=== PATIENT | female | born 1960 | race Caucasian/White ===

== ENCOUNTER 2019-05-31 16:09 | Inpatient (IN) ==
[2019-05-31] MEDS ORDERED: PATIENT'S HEIGHT AND/OR WEIGHT NEEDED SCH (18:45)
[2019-05-31] MEDS ORDERED: POLYETHYLENE (MIRALAX) 17 GM PACK PO PRN (20:36)
[2019-05-31] MEDS ORDERED: ACETAMINOPHEN 325 MG TAB PO PRN (20:36)
[2019-05-31] MEDS ORDERED: PIPERACILL/TAZOBAC CONSULT ACTIVE PRN (20:46)
--- NOTE | 2019-05-31 20:47 | History & Physical Report ---
Date of Service May 31, 2019 Assessment & Plan (1) Pleural effusion: (2) Pneumonia: This is a 58-year-old female with PMH of COPD, tobacco use disorder, depression and other medical problems listed below who presents from pulmonary clinic as direct admission with what appears to be ongoing pneumonia and pleural effusion. -Direct admission from pulmonary clinic for further evaluation of pleural effusion/empyema and pneumonia -Per Dr. Ramirez of pulmonary service, he suspects this is an empyema with a fibrous peel. Case discussed with of thoracic surgery, with scheduled video-assisted thorascopic decortication tmrw -Repeat chest x-ray pending. NPO after midnight -Starting patient on empiric Zosyn and will adjust once surgical cultures result -Routine pulm consult for tomorrow (3) Tobacco abuse: Cessation recommended -Ordered nicotine patch (4) COPD (chronic obstructive pulmonary disease): Continue duo nebs and albuterol inhaler as needed (5) Protein calorie malnutrition: Patient is cachectic and has lost approximately 12 pounds with underlying infection -Dietitian consult placed for further nutritional assessment -Continue MV for folate deficiency (6) MDD (major depressive disorder): Continue Zoloft, Seroquel DVT Ppx: Dr Donohue to order depending on resulting renal function Code status: FULL PCP: Rohini Dispo: Admitted to med/surg. Plan to return home once medically stable. Patient seen in collaboration with Dr. Donohue. Please see addendum. History of Present Illness Chief Complaint: Pulmonary referral from clinic Primary Care Provider: Tricia Acosta MD This is a 58-year-old female with PMH of COPD, tobacco use disorder, depression and other medical problems listed below who presents from pulmonary clinic as direct admission. Initially had bronchitis back in February and March and was treated with azithromycin and prednisone. CXR was obtained at this time and demonstrated a loculated pleural effusion tracking up in the right chest. Was then treated with two courses of Levaquin. CXR was repeated again and did not show a significant change in the pleural effusion, so patient was referred to pulmonary for further evaluation. Patient endorses fatigue and ongoing cough without productive sputum, wheezing, and dyspnea on exertion. Has R sided lateral rib pain. Endorses an approximate 12 pound weight loss and decreased appetite since beginning of illness back in the fall. Denies fever, chills, night sweats, lightheadedness, visual changes, chest pain, palpitations, hemoptysis, nausea, vomiting, abdominal pain, dysuria, diarrhea or constipation. Allergies Allergy/AdvReac Type Severity Reaction Status Date / Time procaine Allergy Unknown Verified 05/31/19 15:00 Home Medications Home Medications Medication Instructions Recorded Confirmed Type albuterol sulfate 90 mcg/actuation 2 puffs INH Q6H PRN 05/31/19 05/31/19 History aerosol inhaler ipratropium-albuterol 3 ml INHALATION QID PRN 05/31/19 05/31/19 History prenat.vits,gorge,yhe-wcjs-whhcj 1 tab PO DAILY 05/31/19 05/31/19 History quetiapine 25 mg tablet 25 mg PO HS 05/31/19 05/31/19 History sertraline 200 mg PO DAILY 05/31/19 05/31/19 History Past Med/Surg History Medical History (Updated 05/31/19 @ 20:46 by Doris Longoria PA-C) COPD (chronic obstructive pulmonary disease) (Chronic) MDD (major depressive disorder) (Chronic) Protein calorie malnutrition (Chronic) Surgical History Fusion of lumbar spine Family History Other Alzheimer disease Breast cancer Heart disease Social History Preferred Language: Romanian Communication Ability: Effective Instructor Tap Dancing Required: No Beliefs That Will Affect Care: None Current Living Situation: Family Other Information That Helps Us Care for You: No Feels Safe at Home: Yes Safety Concerns: Feels Safe At This Time Smoking Status: Current every day smoker Tobacco Type: cigarettes ; packs per day: 1 ; Years Smoked: 40 ; Do You Dip or Chew Tobacco: No ; Second Hand Exposure: Yes ; Tobacco Cessation Education Requested by Patient: No (refused) Hx Alcohol Use: No Hx Substance Use: No Review of Systems Review of Systems: At least ten systems reviewed and negative except as noted in the HPI. Physical Exam Physical Exam: General Appearance: WD/WN, vitals as above, sitting up in bed, pleasant, conversing easily, cachectic Head: normocephalic, atraumatic Eyes: normal inspection, PERRL, conjunctivae normal, anicteric sclerae ENT: external ear and nose normal, oropharynx normal Neck: trachea midline, no thyromegaly normal visual inspection Respiratory: decreased lung sounds in RLL, otherwise clear to auscultation except for . Normal insp/exp effort, no accessory muscle use Cardiovascular: regular rate, rhythm, no murmur, normal peripheral pulses, no BLE edema. Vessels: no JVD or carotid bruit Chest: normal inspection of chest Abdomen/GI: normal bowel sounds, soft, nontender, no hepatosplenomegaly Extremities/Musculoskelatal: no cyanosis or clubbing, extremities motor strength 5/5. Right lateral rib pain, no bruising or deformities Neurologic: PERRL, EOMI, accommodation nl, no face palsy, no dysarthria, CN's II-XI intact bilaterally and moves all extremities Psychiatric: A+Ox3, euthymic affect Skin: no rashes, normal color, warm/dry Results & Data Vital Signs (Past 12 Hours) Vital Signs Temp Pulse Resp BP Pulse Ox 05/31/19 20:35 36.8 C 96 H 20 155/81 H 92 Laboratory Results Laboratory Results WBC 23.95 K/uL (4.8-10.8) H 05/31/19 20:53 RBC 3.31 M/uL (4.2-5.4) L 05/31/19 20:53 Hgb 8.6 g/dL (12.0-16.0) L 05/31/19 20:53 Hct 26.3 % (37-47) L 05/31/19 20:53 MCV 79.5 fL (80-100) L 05/31/19 20:53 MCH 26.0 pg (25-34) 05/31/19 20:53 MCHC 32.7 g/dL (32-36) 05/31/19 20:53 RDW Std Deviation 44.1 fL (36.4-46.3) 05/31/19 20:53 RDW Coeff of Miguel Ángel 15.1 % (11.5-14.5) H 05/31/19 20:53 Plt Count 767 K/uL (130-400) H 05/31/19 20:53 MPV 8.2 fL (7.4-10.4) 05/31/19 20:53 Immature Gran % (Auto) 0.6 % 05/31/19 20:53 Neut % (Auto) 80.4 % 05/31/19 20:53 Lymph % (Auto) 10.2 % 05/31/19 20:53 [place] % (Auto) 7.7 % 05/31/19 20:53 Eos % (Auto) 0.9 % 05/31/19 20:53 Baso % (Auto) 0.2 % 05/31/19 20:53 Immature Gran # (Auto) 0.14 K/uL (0.00-0.02) H 05/31/19 20:53 Neut # (Auto) 19.27 K/uL (1.4-6.5) H 05/31/19 20:53 Lymph # (Auto) 2.44 K/uL (1.2-3.4) 05/31/19 20:53 [place] # (Auto) 1.85 K/uL (0.11-0.59) H 05/31/19 20:53 Eos # (Auto) 0.21 K/uL (0-0.5) 05/31/19 20:53 Baso # (Auto) 0.04 K/uL (0-0.2) 05/31/19 20:53 Sodium 133 mmol/L (136-145) L 05/31/19 21:32 Potassium 2.5 mmol/L (3.5-5.1) L* 05/31/19 21:32 Chloride 99 mmol/L (98-107) 05/31/19 21:32 Carbon Dioxide 30 mmol/L (21-32) 05/31/19 21:32 Anion Gap 5.0 (3-11) 05/31/19 21:32 BUN 15 mg/dl (7-18) 05/31/19 21:32 Creatinine 0.66 mg/dl (0.6-1.2) 05/31/19 21:32 Est Cr Clr Drug Dosing 55.8 ml/min 05/31/19 21:32 Est GFR ( Amer) 112.1 05/31/19 21:32 Est GFR (Non-Af Amer) 96.7 05/31/19 21:32 BUN/Creatinine Ratio 22.5 (10-20) H 05/31/19 21:32 Glucose 90 mg/dl (70-99) 05/31/19 21:32 Calcium 9.6 mg/dl (8.5-10.1) 05/31/19 21:32 Magnesium 1.6 mg/dl (1.8-2.4) L 05/31/19 21:32 Total Bilirubin 0.2 mg/dl (0.2-1) 05/31/19 21:32 AST 17 U/L (15-37) 05/31/19 21:32 ALT 20 U/L (12-78) 05/31/19 21:32 Alkaline Phosphatase 131 U/L (45-117) H 05/31/19 21:32 Total Protein 7.8 gm/dl (6.4-8.2) 05/31/19 21:32 Albumin 2.4 gm/dl (3.4-5.0) L 05/31/19 21:32 Globulin 5.4 gm/dl (2.5-4.0) H 05/31/19 21:32 Albumin/Globulin Ratio 0.4 (0.9-2) L 05/31/19 21:32 TSH 1.790 uIu/ml (0.300-4.500) 05/31/19 21:32 Hepatitis C Ab Screen Neg (Neg) 05/31/19 21:32 Diagnostic Findings Chest x-ray: Large opacity of the right lung base right and midlung suggests combination of pleural effusion with atelectasis/consolidation. Correlate with chest CT to exclude mucous plugging and/or occluding mass. Code Status & VTE Plan VTE Prophylaxis Plan VTE Prophylaxis will be ordered: Yes Supervising Physician Co-Signing Physician Notes IM ATTENDING : Patient seen and examined. History obtained from patient and records. Preceding documentation by Ms. Doris Longoria PA-C reviewed. FINAL ASSESSMENT AND PLAN as follows : Complicated pneumonia Failed outpatient treatment No sepsis hx COPD, pulmonary status at baseline Situational hypertension Acute on chronic anemia Hypokalemia hypomagnesemia Malnutrition (low BMI) Mood disorder at baseline Ongoing tobacco abuse GMF Zosyn as per outpatient pharmacy clinical coordinator recommendations Inpatient Pulmonary Medicine follow-up eval CT surgery RE complicated pneumonia (Dr. Ramirez already in touch with Dr. Gilliland as per documentation.) Replace electrolytes Anemia work-up, transfuse PRBC if hemoglobin less than 7 and or for symptomatic anemia Nutrition consult Nicotine patch DVT prophylaxis. Heparin subcu Full code
[2019-05-31] MEDS ORDERED: PIPERACILLIN/TAZOBACTAM 3.375 GM in DEXTROSE 5% 100 ML IV ONE (21:00)
[2019-05-31] MEDS ORDERED: ALBUT/IPRATROP 3MG/0.5MG NEB 3 ML VIAL INH PRN (21:33)
[2019-05-31] MEDS ORDERED: ALBUTEROL HFA 8 GM INHALER INH PRN (21:33)
[2019-05-31] MEDS ORDERED: XOPENEX/ATROVENT 1.25mg/0.5MG NEB COMBO NEB PRN (21:48)
--- NOTE | 2019-05-31 21:48 | XRay Report ---
XR chest 2V PA/lateral HISTORY: 58 years-old Female repeat acute cough and congestion COMPARISON: Chest radiograph 07/07/2006 TECHNIQUE: PA and lateral views of the chest FINDINGS: Cardiac silhouette is normal in size. Left lung is clear. The lungs are hyperinflated. No pneumothora x. Large opacity involves the right lung base right midlung which appears be a combination of pleural effusion with consolidation and/or atelectasis. Mediastinal structures are midline. Fusion hardware and discectomy changes of the lumbar spine. IMPRESSION: Large opacity of the right lung base right and midlung suggests combination of pleural effusion with atelectasis/consolidation. Correlate with chest CT to exclude mucous plugging and/or occluding mass. ACT 112: Negative or not required by law. The above report was generated using voice recognition software. It may contain grammatical, syntax o r spelling errors. Electronically signed by: Graham Gutierrez M.D. 05/31/2019 9:47 PM
[2019-05-31] MEDS ORDERED: IPRATROPIUM BROMIDE NEB SOLN 0.02% 2.5 ML VIAL INH PRN (22:00)
[2019-05-31] MEDS ORDERED: LEVALBUTEROL 1.25MG/0.5ML NEB INH PRN (22:00)
[2019-05-31 22:02] LABS: Basophils # (auto) 0.04 K/uL (0-0.2); Basophils % (auto) 0.2 %; Eosinophils # (auto) 0.21 K/uL (0-0.5); Eosinophils % (auto) 0.9 %; Hematocrit (blood only) 26.3 % (37-47); Hemoglobin 8.6 g/dL (12.0-16.0); Immature Granulocytes # (auto) 0.14 K/uL (0.00-0.02); Immature Granulocytes % (auto) 0.6 %; Lymphocytes # (auto) 2.44 K/uL (1.2-3.4); Lymphocytes % (auto) 10.2 %; Mean Corpuscular Hgb Conc 32.7 g/dL (32-36); Mean Corpuscular Volume 79.5 fL (80-100); Mean Platelet Volume 8.2 fL (7.4-10.4); Monocytes # (auto) 1.85 K/uL (0.11-0.59); Monocytes % (auto) 7.7 %; Neutrophils # (auto) 19.27 K/uL (1.4-6.5); Neutrophils % (auto) 80.4 %; Platelet Count 767 K/uL (130-400); RDW Coefficient of Variation 15.1 % (11.5-14.5); RDW Standard Deviation 44.1 fL (36.4-46.3); Red Blood Count 3.31 M/uL (4.2-5.4); White Blood Count 23.95 K/uL (4.8-10.8)
[2019-05-31 22:14] LABS: Albumin Globulin Ratio 0.4 (0.9-2); Albumin Level 2.4 gm/dl (3.4-5.0); BUN Creatinine Ratio 22.5 (10-20); Bilirubin,Total 0.2 mg/dl (0.2-1); Calcium 9.6 mg/dl (8.5-10.1); Creatinine Clr Calc Pharmacy 55.8 ml/min; Est GFR (African American) 112.1; Est GFR (Non-African American) 96.7; Globulin 5.4 gm/dl (2.5-4.0); Magnesium 1.6 mg/dl (1.8-2.4); Potassium 2.5 mmol/L (3.5-5.1); Total Protein 7.8 gm/dl (6.4-8.2)
[2019-05-31] MEDS ORDERED: POTASSIUM CHLORIDE 10 MEQ TABCR PO STA (22:22)
[2019-05-31 23:00] LABS: Thyroid Stimulating Hormone 1.79 uIu/ml (0.300-4.500)
[2019-05-31] MEDS: NICOTINE 21 MG/24 HR TDSY TD SCH (23:13)
[2019-05-31] MEDS: SERTRALINE HCL 100 MG TABLET PO SCH (23:15)
[2019-05-31] MEDS: MAGNESIUM SULFATE / D5W 1 GM/100 ML BAG IV SCH (23:16)
[2019-05-31] MEDS: QUETIAPINE FUMARATE 25 MG TABLET PO SCH (23:36)
[2019-06-01] MEDS ORDERED: POTASSIUM CHLORIDE 40 MEQ in SODIUM CHLORIDE 0.9% 1000ML 1,000 ML IV SCH
[2019-06-01] MEDS: MAGNESIUM SULFATE / D5W 1 GM/100 ML BAG IV SCH (00:14)
[2019-06-01] MEDS ORDERED: PROMETHAZINE HCL 12.5 MG in SODIUM CHLORIDE 0.9% 50 ML IV PRN (00:32)
[2019-06-01] MEDS ORDERED: TRAMADOL HCL 50 MG TABLET PO PRN (00:32)
[2019-06-01] MEDS ORDERED: POTASSIUM CHLORIDE 10 MEQ TABCR PO ONE (01:00)
[2019-06-01] MEDS: PIPERACILLIN/TAZOBACTAM 3.375 GM in DEXTROSE 5% 100 ML IV SCH ×3 (01:30→18:20)
[2019-06-01] MEDS: HEPARIN SOD 5,000 UNIT/0.5 ML VIAL SQ SCH ×2 (06:15→17:15)
[2019-06-01 06:21] LABS: Hematocrit (blood only) 26.3 % (37-47); Hemoglobin 8.5 g/dL (12.0-16.0); Mean Corpuscular Hemoglobin 25.5 pg (25-34); Mean Corpuscular Hgb Conc 32.3 g/dL (32-36); Platelet Count 607 K/uL (130-400); RDW Coefficient of Variation 15.1 % (11.5-14.5); RDW Standard Deviation 43.7 fL (36.4-46.3); Red Blood Count 3.33 M/uL (4.2-5.4); White Blood Count 21.08 K/uL (4.8-10.8)
[2019-06-01 07:03] LABS: BUN Creatinine Ratio 18.6 (10-20); Calcium 8.7 mg/dl (8.5-10.1); Creatinine Clr Calc Pharmacy 66.9 ml/min; Est GFR (Non-African American) 102.7; Ferritin 561.4 ng/ml (8-388); Magnesium 1.9 mg/dl (1.8-2.4); Potassium 3.6 mmol/L (3.5-5.1)
[2019-06-01] MEDS: SERTRALINE HCL 100 MG TABLET PO SCH ×2 (07:47→21:22)
--- NOTE | 2019-06-01 08:11 | Surgery Consultation ---
Date of Consultation June 01, 2019 Assessment & Plan (1) Empyema of right pleural space: Her white count upon admission was 23,950. Hemoglobin is down to 8.6. Her albumin is 2.4. Her chest x-ray shows a loculated effusion tracking up the right lateral chest. This patient has symptomatology and physical findings as well as radiographic and laboratory evidence of an empyema. I am to take her to the operating room and do a right thoracoscopy with a decortication today. We discussed risk and benefits. We discussed bleeding, lung injuries, cardiac arrhythmias, poor wound healing. She understands. I explained this is a serious condition and has a significant mortality rate. She understands. We will proceed this morning. Present on Admission?: Yes History of Present Illness Attending Physician: Palomo German MD History of Present Illness This is a tiny 58-year-old female who has a 40-year history of cigarette smoking at about a pack a day and continues to smoke and in fact had a cigarette yesterday. He is followed by [facility] and was referred to Dr. Chris Ramirez yesterday as she is had a persistent right pleural effusion for at least the last 6 weeks. On ultrasound and Dr. Ramirez's office yesterday this is complex. She has a white count over 20,000 has been sick for about 2 months. I discussed this with Dr. Ramirez yesterday and asked him to proceed with admission to the medical service and we would proceed with a thoracoscopic decortication today. Patient has lost over 10% of her body weight. She is chronically coughing but is not really producing any cough. She is been treated with steroids and multiple courses of antibiotics as an outpatient. She is quite fatigued. Allergies Allergy/AdvReac Type Severity Reaction Status Date / Time procaine Allergy Unknown Verified 05/31/19 15:00 Home Medications Home Medications Medication Instructions Recorded Confirmed Type albuterol sulfate 90 mcg/actuation 2 puffs INH Q6H PRN 05/31/19 05/31/19 History aerosol inhaler ipratropium-albuterol 3 ml INHALATION QID PRN 05/31/19 05/31/19 History prenat.vits,gorge,ljw-smsu-hbnll 1 tab PO DAILY 05/31/19 05/31/19 History quetiapine 25 mg tablet 25 mg PO HS 05/31/19 05/31/19 History sertraline 200 mg PO DAILY 05/31/19 05/31/19 History Patient History Medical History (Updated 06/01/19 @ 08:13 by Marlon Gilliland MD, FACS) COPD (chronic obstructive pulmonary disease) (Chronic) MDD (major depressive disorder) (Chronic) Protein calorie malnutrition (Chronic) Surgical History Fusion of lumbar spine Family History Other Alzheimer disease Breast cancer Heart disease Social History Preferred Language: Montenegrin Communication Ability: Effective [place] Chalker Required: No Beliefs That Will Affect Care: None Current Living Situation: Family Other Information That Helps Us Care for You: No Feels Safe at Home: Yes Safety Concerns: Feels Safe At This Time Smoking Status: Current every day smoker Tobacco Type: cigarettes ; packs per day: 1 ; Years Smoked: 40 ; Do You Dip or Chew Tobacco: No ; Second Hand Exposure: Yes ; Tobacco Cessation Education Requested by Patient: No (refused) Hx Alcohol Use: No Hx Substance Use: No Review of Systems Review of Systems: She has lost more than 10% of her body weight has gone from about 98 pounds to 86 pounds. She is quite fatigued. She has a cough. She has not felt well but has had some night sweats. She denies any peripheral edema. She states that she really cannot smoke as much because she coughs. She is down to just a couple cigarettes yesterday. She denies hemoptysis. She had no neurologic events. She is had no visual auditory symptoms. She denies any nausea or vomiting or diarrhea. Review of symptoms is unremarkable. Physical Exam Physical Exam: This is a tiny 4 foot 9 inch 39 kg female who is awake and alert. Extraocular's are intact. Sclera pale but anicteric. She has some temporal wasting. Tongue is midline. Her neck is supple. She has no supraclavicular cervical lymph node enlargement and has no carotid bruits or tracheal deviation. She has no neck vein distention. She is markedly decreased breath sounds on the right side. She has no wheezing. Recently has mildly differential diffuse decrease in breath sounds on the left also. She has a very great rhythm of her heart with distant heart sounds. Her abdomen is flat soft nontender. She has no peripheral edema. She has excellent peripheral pulses with no joint effusions. Neurologically she has no focal deficits. Cranial nerves II through XII are intact. Results & Data Vital Signs (Past 12 Hours) Vital Signs Temp Pulse Resp BP BP Pulse Ox 06/01/19 07:04 36.9 C 93 H 16 148/67 H 92 05/31/19 23:02 36.8 C 90 14 144/68 H 92 05/31/19 20:35 36.8 C 96 H 20 155/81 H 92 PG Care Time/CCT Total # of Minutes Spent Total Time Spent with Patient: Total time spent is greater than 50% in coordination of care (as documented) at patient's floor/unit and/or counseling patient:
[2019-06-01 08:44] LABS: Folate (Folic Acid) > 24.00 ng/ml (>5.38); Vitamin B12 885 pg/ml (211-911)
[2019-06-01] MEDS ORDERED: SERTRALINE HCL 100 MG TABLET PO SCH (09:00)
[2019-06-01] MEDS ORDERED: PRENATAL VITAMIN 1 TAB PO SCH (09:00)
--- NOTE | 2019-06-01 10:41 | Pulmonary Consultation ---
Date of Consultation June 01, 2019 Assessment & Plan (1) Empyema of right pleural space: --Located right-sided pleural effusion Has been going on since March 2019 Patient failed outpatient therapy with 3 courses of antibiotics There is progressive worsening of the effusion. Patient had bedside ultrasound done at the office by Dr. Ramirez which showed complicated effusion CT surgery on board for VATS Continue with antibiotics Incentive spirometry post OR. CT chest without contrast prior to discharge to rule out any mass causing right lower lobe pneumonia. --COPD With active smoking history, not in exacerbation Continue with inhaled bronchodilator therapy Patient only on albuterol at home. Will benefit from lama inhaler prior to discharge. Keep O2 saturation between 88 to 92% C/w nicotine patch Patient to follow-up with pulmonary Dr. Ramirez within 2 weeks after discharge. Please note the above document was generated using voice recognition software. It may contain grammatical, syntax or spelling errors. (2) COPD (chronic obstructive pulmonary disease): (3) Tobacco abuse: (4) Shortness of breath: History of Present Illness Attending Physician: Palomo German MD History of Present Illness 58-year-old female with past medical history of COPD, active smoker who has been having complaints of right-sided chest pain cough since March has been on 3 courses of antibiotics so far. Has lost approximately 11 pounds since late March. It started with flulike symptoms back in the end of Feb [place] early March. She went to her primary care doctor at that time had a chest x-ray done which showed right lower lobe consolidation with mild pleural effusion. For which she was given antibiotics and asked to follow-up. At the time of examination patient does complain of right-sided pleuritic chest pain on taking deep breath. She has cough with greenish-yellow phlegm which is clearing up. Denies any nausea or vomiting. No headache, no dizziness, no blurry vision. No night sweats. Patient denies any recent travel history. Social history: Greater than 66-vojl-bclz active smoker, ex-alcohol use, occasional marijuana. 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 3 dogs at home. Not allergic to any. No personal history of any cancer. Allergies Allergy/AdvReac Type Severity Reaction Status Date / Time procaine Allergy Unknown Verified 05/31/19 15:00 Home Medications Home Medications Medication Instructions Recorded Confirmed Type albuterol sulfate 90 mcg/actuation 2 puffs INH Q6H PRN 05/31/19 05/31/19 History aerosol inhaler ipratropium-albuterol 3 ml INHALATION QID PRN 05/31/19 05/31/19 History prenat.vits,gorge,gul-anvt-kqwjm 1 tab PO DAILY 05/31/19 05/31/19 History quetiapine 25 mg tablet 25 mg PO HS 05/31/19 05/31/19 History sertraline 200 mg PO DAILY 05/31/19 05/31/19 History Patient History Medical History (Updated 06/01/19 @ 10:35 by Zaina Dunne MD) COPD (chronic obstructive pulmonary disease) (Chronic) MDD (major depressive disorder) (Chronic) Protein calorie malnutrition (Chronic) Surgical History Fusion of lumbar spine Family History Other Alzheimer disease Breast cancer Heart disease Social History Preferred Language: Israeli Communication Ability: Effective Music Box Mechanic Required: No Beliefs That Will Affect Care: None marital status: Current Living Situation: Family Other Information That Helps Us Care for You: No Feels Safe at Home: Yes Safety Concerns: Feels Safe At This Time Smoking Status: Current every day smoker Tobacco Type: cigarettes ; packs per day: 1 ; Years Smoked: 40 ; Do You Dip or Chew Tobacco: No ; Second Hand Exposure: Yes ; Tobacco Cessation Education Requested by Patient: No (refused) Hx Alcohol Use: No Hx Substance Use: No Review of Systems Review of Systems: All systems reviewed & are unremarkable except as noted in HPI & below Physical Exam Physical Exam: Constitutional: No acute distress, temporal wasting HEENT: EOMI, PERRLA, moist mucous membranes Respiratory system: Decreased air entry on the right side, positive bilateral lower lobe crackles, no wheeze, no rhonchi CVS: S1-S2 positive, no murmurs or gallops, tachycardia, accentuated P2 Abdomen: Soft, nontender, nondistended, positive bowel sounds x4 Extremities: +2 pulses bilaterally radialis/ dorsalis pedis, no cyanosis, no edema, osteoarthritic changes especially rated at the distal phalanx of bilateral fingers, prominent right chest superficial veins Neuro: Awake alert oriented x3 Psych: Normal mood and affect G/U: No Perez Skin: no rashes, warm and dry Lymphatic: no cervical or axillary lymphadenopathy Results & Data Vital Signs (Past 12 Hours) Vital Signs Temp Pulse Resp BP Pulse Ox 06/01/19 07:04 36.9 C 93 H 16 148/67 H 92 05/31/19 23:02 36.8 C 90 14 144/68 H 92 06/01/19 06:10 06/01/19 06:10 Diagnostic Findings Chest x-ray personally reviewed: PA/lateral film. Opacification of the right hemithorax. Right costophrenic angle obscured. Left costophrenic angle and cardiophrenic angle clean. Mild mediastinal shift to the left. There is air between the heart and the diaphragm representing hyperinflation. Chest x-ray was compared to x-ray done on 04/13/2019 and 05/11/2019 which showed progressive worsening of the right-sided effusion/consolidation. PG Care Time/CCT Total # of Minutes Spent Total Time Spent with Patient: Total time spent is greater than 50% in coordination of care (as documented) at patient's floor/unit and/or counseling patient:
--- NOTE | 2019-06-01 11:33 | Anesthesiology Consultation ---
Date of Service June 01, 2019 Assessment & Plan (1) Encounter for pre-operative examination: Chart Review Chart Review: Acceptable Risk for Surgery History Surgery Operation Date: 06/01/19 12:50 Proposed Procedures p Right Thoracoscopy with Decortication - Marlon Gilliland MD, FACS Height/Weight Height: 4 ft 9 in Weight: 38.5 kg Allergies Allergy/AdvReac Type Severity Reaction Status Date / Time procaine Allergy Unknown Verified 05/31/19 15:00 Medications Home Medications Medication Instructions Recorded Confirmed Last Taken albuterol sulfate 90 mcg/actuation 2 puffs INH Q6H PRN 05/31/19 05/31/19 Unknown aerosol inhaler ipratropium-albuterol 3 ml INHALATION QID PRN 05/31/19 05/31/19 Unknown prenat.vits,gorge,gju-rtfc-whpsd 1 tab PO DAILY 05/31/19 05/31/19 Unknown quetiapine 25 mg tablet 25 mg PO HS 05/31/19 05/31/19 Unknown sertraline 200 mg PO DAILY 05/31/19 05/31/19 Unknown Active Medications Generic Name Dose Route Start Last Admin Trade Name Freq PRN Reason Stop Dose Admin Heparin Sodium (Porcine) 5,000 units 06/01/19 06:00 06/01/19 06:15 Heparin Sodium (Porcine) SQ 07/01/19 05:59 5,000 units Q8 MADIHA Administration Potassium Chloride 40 meq/ 1,020 mls @ 50 mls/hr 06/01/19 00:00 06/01/19 06:20 Sodium Chloride IV 07/01/19 00:00 50 mls/hr .[id number] MADIHA Infusion Piperacillin Sod/Tazobactam 115 mls @ 28.75 mls/hr 06/01/19 02:00 06/01/19 10:38 Sod 3.375 gm/ Dextrose IV 06/07/19 01:59 28.8 mls/hr Q8H MADIHA Administration Protocol Nicotine 21 mg 05/31/19 22:00 05/31/19 23:13 Nicoderm Cq TD 06/30/19 21:59 21 mg 2200 MADIHA Administration Prenat Multivit/Clinical Informatics Specialist/Iron/Folic Ac 1 tab 06/01/19 09:00 06/01/19 07:47 Vitamin PO 07/01/19 08:59 1 tab DAILY MADIHA Administration Quetiapine Fumarate 25 mg 05/31/19 22:45 05/31/19 23:36 Seroquel PO 06/30/19 22:44 25 mg HS MADIHA Administration Sertraline HCl 100 mg 05/31/19 22:45 06/01/19 07:47 Zoloft PO 06/30/19 22:44 100 mg BID MADIHA Administration NPO Date Last Intake of Fluids: 05/31/19 Time Last Intake of Fluids: 20:00 Last Intake of Fluids Comment: Sips of water with meds at :. Date Last Intake of Solids: 05/31/19 Time Last Intake of Solids: 20:00 Past Medical History Medical History (Updated 06/01/19 @ 11:33 by Aaron Stevenson MD) Anemia COPD (chronic obstructive pulmonary disease) (Chronic) Empyema MDD (major depressive disorder) (Chronic) Protein calorie malnutrition (Chronic) Past Family History Family History Other Alzheimer disease Breast cancer Heart disease Past Surgical History Surgical History Fusion of lumbar spine Social History Smoking Status: Current every day smoker tobacco type: cigarettes Do You Dip or Chew Tobacco: No Hx Alcohol Use: No Hx Substance Use: No substance use type: prescription drug Physical Exam Vital Signs Last Vital Signs Temp 36.9 C 06/01/19 11:16 Pulse 86 06/01/19 11:16 Resp 20 06/01/19 11:16 BP 130/63 06/01/19 11:16 Pulse Ox 100 06/01/19 11:16 Testing Laboratory Results 06/01/19 06:10 06/01/19 06:10 Blood Type A Positive 06/01/19 06:10 Antibody Screen NEGATIVE 06/01/19 06:10 Electrocardiogram Date: 06/01/19 Findings: + NSR @ (92) Chest X-Ray Date: 05/31/19 Findings: + pleural effusion (right side)
[2019-06-01] MEDS ORDERED: SODIUM CHLORIDE 0.9% 250 ML IV PRN (11:39)
[2019-06-01] MEDS ORDERED: SODIUM CHLORIDE 0.9% PF 50 ML VIAL ONE ×2 (11:42→11:43)
[2019-06-01] MEDS ORDERED: BUPIVACAINE 0.5 % 5 MG/1 ML MPF 30ML VIAL ONE (11:42)
[2019-06-01] MEDS ORDERED: SODIUM CHLORIDE 0.9% INJ 10 ML VIAL ONE (11:42)
[2019-06-01] MEDS ORDERED: BUPIVACAINE LIPOSOME 1.3% 266 MG/20 ML VIAL ONE (11:42)
[2019-06-01] MEDS ORDERED: ATROPINE SULFATE 0.1 MG/ML 10ML SYR IV PRN (11:44)
[2019-06-01] MEDS ORDERED: ONDANSETRON INJ 2 MG/ML 2 ML VIAL IV PRN (11:44)
[2019-06-01] MEDS ORDERED: HYDROmorphone INJ 1 MG/ML SYRINGE IV PRN (11:44)
[2019-06-01] MEDS ORDERED: PHENYLEPHRINE HCL 10 MG/ML VIAL ONE (11:50)
[2019-06-01] MEDS ORDERED: SUCCINYLCHOLINE CHLORIDE 20 MG/ML 10 ML VIAL ONE (11:50)
[2019-06-01] MEDS ORDERED: ePHEDrine sulfate 50 MG/ML AMP ONE (11:50)
[2019-06-01] MEDS ORDERED: DEXAMETHASONE SOD INJ 4 MG/ML VIAL ONE (11:50)
[2019-06-01] MEDS ORDERED: GLYCOPYRROLATE 0.2 MG/ML VIAL ONE (11:50)
[2019-06-01] MEDS ORDERED: NEOSTIGMINE METHYLSULFATE 5 MG/5 ML SYR ONE (11:50)
[2019-06-01] MEDS ORDERED: PROPOFOL IV EMULSION 10 MG/ML 20 ML VIAL IV ONE (11:50)
[2019-06-01] MEDS ORDERED: LIDOCAINE HCL 2% 2 ML VIAL/AMP(20MG/ML) INFIL ONE (11:50)
[2019-06-01] MEDS ORDERED: ONDANSETRON INJ 2 MG/ML 2 ML VIAL ONE (11:50)
[2019-06-01] MEDS ORDERED: fentaNYL citrate 100 MCG/2 ML VIAL ONE (11:51)
[2019-06-01] MEDS ORDERED: MIDAZOLAM HCL 1 MG/ML 2ML VIAL ONE (11:51)
--- NOTE | 2019-06-01 12:00 | Electrocardiogram Report ---
Test Reason : Blood Pressure : / mmHG Vent. Rate : 092 BPM Atrial Rate : 092 BPM P-R Int : 150 ms QRS Dur : 090 ms QT Int : 372 ms P-R-T Axes : 067 090 062 degrees QTc Int : 460 ms Normal sinus rhythm Rightward axis Minimal voltage criteria for LVH, may be normal variant ( [place] product ) Borderline ECG When compared with ECG of 07-JUL-2006 13:35, No significant change was found Confirmed by Nav Lassiter ([id number]) on 06/01/2019 11:59:54 AM Referred By: Tricia Acosta Confirmed By:Nav Lassiter
[2019-06-01] MEDS ORDERED: LARYING-O-JET KIT (LTA) ONE (13:12)
[2019-06-01] MEDS ORDERED: LEVALBUTEROL 1.25MG/0.5ML NEB INH SCH (14:00)
[2019-06-01] MEDS ORDERED: IPRATROPIUM BROMIDE NEB SOLN 0.02% 2.5 ML VIAL INH SCH (14:00)
[2019-06-01] MEDS ORDERED: METOCLOPRAMIDE HCL INJ 5 MG/ML 2 ML VIAL IV ONE (15:15)
--- NOTE | 2019-06-01 15:41 | XRay Report ---
XR chest 1V portable CLINICAL HISTORY: s/p decortication postoperative COMPARISON STUDY: 05/31/2019 FINDINGS: Postoperative right hemithoracic decortication. 2 right-sided chest tubes. Small right basi lar pneumothorax laterally. No apical pneumothorax. Minimal interstitial change left lung base. Persistent opacification right lung base although improved from the prior study. IMPRESSION: 1. Improved aeration right hemithorax post decortication.. 2. 2 right-sided chest tubes as discussed. 3. Small right basilar pneumothorax. ACT 112: Negative or not required by law. The above report was generated using voice recognition software. It may contain grammatical, syntax or spelling errors. Electronically signed by: Carter Cadena M.D. 06/01/2019 3:39 PM
[2019-06-01] MEDS: IPRATROPIUM BROMIDE NEB SOLN 0.02% 2.5 ML VIAL INH SCH ×2 (15:58→22:41)
[2019-06-01] MEDS: LEVALBUTEROL 1.25MG/0.5ML NEB INH SCH ×2 (15:58→22:41)
--- NOTE | 2019-06-01 15:58 | Operative Report ---
PG Post Operative Report Pre & Post Diagnosis Operation Date: 06/01/19 12:50 Pre-Op Diagnosis: Empyema Post-Op Diagnosis: Empyema with trapped lung I identified the patient and participated in the time-out.: Yes Procedure Operation Date: 06/01/19 12:50 Actual Procedures p Right Thoracoscopy with Extensive Decortication, Evacuation of Pleural Contents(Right) - Marlon Gilliland MD, FACS Surgeon Marlon Gilliland MD, FACS Applications Programmer Analyst Norberto VICENTE Estimated Blood Loss 200 Findings Consistent with Post-Op Diagnosis Specimens Empyema contents, intrathoracic contents, pleural peel. Drains 24 [place] straight chest tube 28 [place] right angle chest tube Anesthesia Type General Complications none Disposition Accompanied Patient To Recovery: Yes Disposition: Surgical ICU Description of Procedure Mariely is a 58-year-old active smoker who is been sick for almost 3 months. Is been treated as an outpatient with multiple course of antibiotics and steroids. She is not responded and is gotten sicker and sicker. She is lost weight and has her stated, ""we all thought she had cancer". She was afraid to see her doctor but finally was referred to benefits processor Dr. Chris Ramirez evaluate her immediately sent her over for admission. She had a large pleural effusion on the right. Her white count was over 20,000. She was cachectic and ill. Rather than tap this effusion we felt it be prudent to take her directly to the operating room. In the late morning of 06/01/2019, the patient brought the operating room and underwent an uncomplicated thoracoscopy on the right side. We drained over thousand cc of peach colored malodorous pus which had gram positive cocci on Gram stain. Her lung was also trapped. We had to do an extensive decortication but eventually were able to peel off of enough of her lung to get it to expand. She had multiple lung injuries as would be expected from such a longstanding fibrous peel. She actually tolerated it well. She was extubated in the room. She was stable upon her transfer to the postanesthesia care unit. We are going to watch her in the intensive care unit tonight. Procedure: Patient was brought to the operating room and laid in the supine position. General anesthesia was induced and endotracheal intubation performed with a single-lumen tube. Arterial line and Perez catheter were placed. Patient was placed in left lateral cubitus position and the right chest prepped and draped in the usual sterile fashion. After appropriate timeout of been called and antibiotics given prophylactically, 5 mm port was placed posteriorly at about the level of the scapular tip. This immediately fill with pea colored fluid and we sent off a Gram stain immediately. Over 1000 cc of a malodorous thick fluid was drained. Then placed the 5 mm scope and we could be seen that we were in the empyema cavity. We then placed another 5 mm port anterior and then put a 12 mm port above the diaphragm about the mid axillary line. We then suctioned out much of the fluid and then enlarged our ports to 10 mm ports each and using thoracoscopic instruments we aggressively removed necrotic and malodorous mat erial from the chest wall and the diaphragmatic surface as well as the lung itself. The lung was trapped with an extensive peel. Finally we were able to get a edge on this and peeled it away and then we spent 2 hours removing this p.o. meticulously. Despite our best efforts there were some small air leaks. We had oozing from the chest wall him from the lung and probably lost about 200 cc of blood but her hemoglobin was low to start so we gave a unit of blood slowly during the case. Finally, after able to decorticate her so that her lung expanded enough we performed a intercostal block using liposomal bupivacaine. This was done in an intrathoracic fashion. After irrigating out the chest we could see that there were multiple small leak but no leak that required to repair. These air leaks should stop. We then placed a 32 [place] chest tube through the inferior most port placed under the right lower lobe along top of the diaphragmatic dome. We did place a 24 [place]er chest tube directed more towards the apex. This is brought up to the anterior port. They were both held in place with heavy silk suture. All the incisions were closed with 4-0 Monocryl in a running septic or fashion. She did have an air leak but tolerates this quite well. She will be extubated in the room was transported to the postanesthesia care unit in stable condition. I attest to the content of the Intraoperative Record and any orders documented therein. Any exceptions are noted below.
--- NOTE | 2019-06-01 16:09 | Anesthesiology Progress Note ---
Date of Service June 01, 2019 Anesthesia Post Procedure Vital Signs Vital Signs: Temp Pulse Pulse Resp BP BP Pulse Ox 06/01/19 16:00 70 22 120/60 100 06/01/19 15:50 68 24 118/65 99 06/01/19 15:40 71 19 122/62 100 06/01/19 15:30 70 22 121/56 L 100 06/01/19 15:23 36.6 C 70 22 126/68 100 06/01/19 11:16 36.9 C 86 20 130/63 100 06/01/19 07:04 36.9 C 93 H 16 148/67 H 92 05/31/19 23:02 36.8 C 90 14 144/68 H 92 05/31/19 20:35 36.8 C 96 H 20 155/81 H 92 Pain Intensity Right Chest: Pain Intensity: 0 Transfer of Care Handoff Completed per policy Notes Mental Status: alert / awake / arousable and participated in evaluation Patient Amnestic to Procedure: Yes Nausea / Vomiting: adequately controlled Pain: adequately controlled Airway Patency, RR, SpO2: stable & adequate BP & HR: stable & adequate Hydration State: stable & adequate Anesthetic Complications: no major complications apparent
[2019-06-01] MEDS: ACETAMINOPHEN 1,000 MG/100 ML VIAL IV SCH (17:43)
[2019-06-01] MEDS: D5W AND 1/2NSS 1,000 ML IV SCH (17:43)
--- NOTE | 2019-06-01 19:03 | Hospitalist Progress Note ---
Date of Service June 01, 2019 Assessment & Plan (1) Pleural effusion: (2) Pneumonia: Patient is a 58 yr female with H/O COPD, tobacco use disorder, depression and other medical problems listed below who presents from pulmonary clinic as direct admission with what appears to be ongoing pneumonia and pleural effusion. Loculated right-sided pleural effusion/Empyema CXR: Large opacity of the right lung base right and midlung suggests combination of pleural effusion with atelectasis/consolidation. Correlate with chest CT to exclude mucous plugging and/or occluding mass. S/P right thoracoscopy with extensive decortication, evacuation of pleural contents POD #0 Appreciate pulmonary, CT surgery help Follow-up pleural fluid studies Continue IV zosyn Pain control (3) Tobacco abuse: Cessation budget counselor -nicotine patch (4) COPD (chronic obstructive pulmonary disease): Continue Nebs (5) Protein calorie malnutrition: Patient is cachectic and has lost approximately 12 pounds with underlying infection Dietitian consulted Continue MV for folate deficiency (6) MDD (major depressive disorder): Continue Zoloft, Seroquel DVT Px: Lovenox SQ Code status: Full Code Disposition To be determined Subjective Patient is seen and examined at bedside Patient had a right thoracoscopy with extensive decortication and evacuation of pleural contents today Patient is drowsy after the procedure States having pain at the site of chest tube Denies any nausea, vomiting, dizziness, abdominal pain, shortness of breath Family at bedside Offers no other complaints Review of Systems Review of Systems: All systems reviewed & are unremarkable except as noted in HPI & below Physical Exam Physical Exam: Physical Exam: Vitals signs as noted above General Appearance: Thin, frail, chronically appearing, no apparent distress Head: normocephalic, Atraumatic Eyes: normal inspection, EOMI Neck: supple, Trachea midline Respiratory/Chest: Decreased breath sounds on Right side, Basal Crackles, + chest tube Cardiovascular: S1, S2, No murmur Abdomen/GI:Soft, Non tender, Bowel sounds present Extremities/Musculoskelatal:normal inspection, no edema Neurologic/Psych:AAOX3, grossly no focal neurological deficits Skin: normal color, warm Results & Data Vital Signs (Past 12 Hours) Vital Signs Temp Pulse Pulse Pulse Resp BP BP 06/01/19 18:00 82 19 06/01/19 17:45 82 21 06/01/19 17:39 79 21 142/69 H 01/17/20 17:30 80 21 06/01/19 17:15 77 22 06/01/19 17:00 78 17 06/01/19 16:50 76 14 06/01/19 16:39 85 13 140/65 06/01/19 16:15 36.6 C 73 22 124/66 06/01/19 16:00 70 22 120/60 06/01/19 15:50 68 24 118/65 06/01/19 15:40 71 19 122/62 06/01/19 15:30 70 22 121/56 L 06/01/19 15:23 36.6 C 70 22 126/68 06/01/19 11:16 36.9 C 86 20 130/63 06/01/19 07:04 36.9 C 93 H 16 148/67 H Pulse Ox 06/01/19 18:00 100 06/01/19 17:45 100 06/01/19 17:39 100 06/01/19 17:30 100 06/01/19 17:15 99 06/01/19 17:00 98 06/01/19 16:50 06/01/19 16:39 98 06/01/19 16:15 100 06/01/19 16:00 100 06/01/19 15:50 99 06/01/19 15:40 100 06/01/19 15:30 100 06/01/19 15:23 100 06/01/19 11:16 100 06/01/19 07:04 92 Laboratory Results Short CBC 05/31/19 06/01/19 Range/Units 20:53 06:10 WBC 23.95 H 21.08 H (4.8-10.8) K/uL Hgb 8.6 L 8.5 L (12.0-16.0) g/dL Hct 26.3 L 26.3 L (37-47) % Plt Count 767 H 607 H (130-400) K/uL BMP 05/31/19 06/01/19 21:32 06:10 Sodium 133 L 135 L Potassium 2.5 L* 3.6 D Chloride 99 104 Carbon Dioxide 30 26 BUN 15 10 D Creatinine 0.66 0.55 L Glucose 90 112 H Calcium 9.6 8.7 Liver Function 05/31/19 Range/Units 21:32 Total Bilirubin 0.2 (0.2-1) mg/dl AST 17 (15-37) U/L ALT 20 (12-78) U/L Alkaline Phosphatase 131 H (45-117) U/L Albumin 2.4 L (3.4-5.0) gm/dl
--- NOTE | 2019-06-01 19:42 | Critical Care Consultation ---
Date of Consultation June 01, 2019 Assessment & Plan (1) Empyema of right pleural space: Reason Critically Ill: 58-year-old female presents to the ICU following right thoracotomy with extensive decortication, evacuation of pleural contents for empyema with trapped lung Neuro - [facility] ICU: Negative Depressioncontinue home meds quetiapine, sertraline Cardiac - Patient remains hemodynamically stable in NSR -No history heart disease, no cardiac meds on patient's home med list -A-line for continuous BP monitoring, avoid hypertension -Continue to monitor on telemetry Respiratory - Empyema with trapped lungnow status post thoracotomy with extensive decortication and evacuation of pleural contents -Patient has 2 chest tubes to right side to suction, monitor output -Patient with history of smoking and COPD -PRN nebs -Nicotine patch -Encourage cessation of tobacco use -Encourage early ambulation a.m. -Continue antibiotic therapy -Pulmonary toileting -Follow-up a.m. chest x-ray -Follow-up surgical team recommendations GI - Heart healthy diet, encourage caloric intake as patient is catabolic from recent illness with recent 12 pound weight loss and BMI 18 RENAL/LYTES - Creatinine stable, monitor routine BMPs and replete electrolytes as necessary Continue IV fluids - Foleystrict I's and O's ENDO - No history of diabetes or thyroid disease ICU hyperglycemic protocol HEME - H&H stable, continue to trend CBCs, transfuse if indicated ID - Gram stain gram-positive cocci from lung culture Negative MRSA PCR Continue Zosyn, cultures pending LINES/IV ACCESS - Peripheral IVs, A-line DVT PROPHYLAXIS - SCDs, Lovenox Thank you for allowing us to participate in the care of this patient. Please refer to my attending physician's documentation for any further recommendations. (2) MDD (major depressive disorder): (3) Protein calorie malnutrition: (4) COPD (chronic obstructive pulmonary disease): (5) Admitted to intensive care unit: (6) Pneumonia: Supervising Physician Co-Signing Physician Notes I discussed the patient with Dr. Gilliland. I agree with assessment and plan of Linh WHITTAKER. Microbiological wound culture revealed streptococcal species: Continue current antibiotics. History of Present Illness Attending Physician: Palomo German MD History of Present Illness Ms. March is a 58-year-old female past medical history COPD, tobacco abuse, depression who was directly noted from the pulmonary clinic for an ongoing pneumonia and pleural effusion. Patient was found to have loculated right-sided pleural effusion/empyema. Patient now presents to the ICU status post right thorascopic with extensive decortication, and evacuation of pleural contents. She has 2 right-sided chest tubes to suction. She is otherwise hemodynamically stable without need for vasopressors, on 2 L nasal cannula. Patient currently denies headache, syncope, dizziness, sore throat, shortness of breath, palpitations, chest pain, abdominal pain, nausea or vomiting, or diarrhea. She does report mild pain at the insertion sites the chest tube. Adarsh foster to remain in ICU overnight following procedure. Allergies Allergy/AdvReac Type Severity Reaction Status Date / Time procaine Allergy Unknown Verified 05/31/19 15:00 Home Medications Home Medications Medication Instructions Recorded Confirmed Type albuterol sulfate 90 mcg/actuation 2 puffs INH Q6H PRN 05/31/19 05/31/19 History aerosol inhaler ipratropium-albuterol 3 ml INHALATION QID PRN 05/31/19 05/31/19 History prenat.vits,gorge,[id number]-[id number] 1 tab PO DAILY 05/31/19 05/31/19 History quetiapine 25 mg tablet 25 mg PO HS 05/31/19 05/31/19 History sertraline 200 mg PO DAILY 05/31/19 05/31/19 History Patient History Medical History (Updated 06/02/19 @ 17:11 by Jose Alberto Nolen DO) Anemia COPD (chronic obstructive pulmonary disease) (Chronic) Empyema MDD (major depressive disorder) (Chronic) Protein calorie malnutrition (Chronic) Surgical History Fusion of lumbar spine Family History Other Alzheimer disease Breast cancer Heart disease Social History Preferred Language: Senegalese Communication Ability: Effective Historic Interpreter Required: No Beliefs That Will Affect Care: None marital status: Current Living Situation: Family Other Information That Helps Us Care for You: No Feels Safe at Home: Yes Safety Concerns: Feels Safe At This Time Smoking Status: Current every day smoker Tobacco Type: cigarettes ; packs per day: 1 ; Years Smoked: 40 ; Do You Dip or Chew Tobacco: No ; Second Hand Exposure: Yes ; Tobacco Cessation Education Requested by Patient: No (refused) Hx Alcohol Use: No Hx Substance Use: No Review of Systems Review of Systems: All systems reviewed & are unremarkable except as noted in HPI & below Physical Exam Eyes: PERRL, conjunctivae normal, anicteric sclerae ENMT: external ear and nose normal, oropharynx normal Neck: trachea midline, no thyromegaly Respiratory: Left lung clear in all ruffin to auscultation, right lung diminished with rhonchi in upper middle and lower lobes. Symmetrical chest wall movement, nonlabored breathing Cardiovascular: RRR, no murmur, no edema Heart Sounds: normal S1 and normal S2 Vessels: no JVD Extremities: normal capillary refill; no edema Gastrointestinal (Abdomen): normal bowel sounds, soft, nontender, no hepatosplenomegaly Skin: no rashes, warm and dry Neurologic: PERRL, EOMI, accommodation nl, no face palsy, no dysarthria Psychiatric: A+Ox3, euthymic affect Genitourinary: Indwelling Perez catheter present Results & Data Vital Signs (Past 12 Hours) Vital Signs Temp Pulse Pulse Pulse Resp BP BP 06/01/19 18:00 82 19 06/01/19 17:45 82 21 06/01/19 17:39 79 21 142/69 H 06/01/19 17:30 80 21 06/01/19 17:15 77 22 06/01/19 17:00 78 17 06/01/19 16:50 76 14 06/01/19 16:39 85 13 140/65 06/01/19 16:15 36.6 C 73 22 124/66 06/01/19 16:00 70 22 120/60 06/01/19 15:50 68 24 118/65 06/01/19 15:40 71 19 122/62 06/01/19 15:30 70 22 121/56 L 06/01/19 15:23 36.6 C 70 22 126/68 06/01/19 11:16 36.9 C 86 20 130/63 Pulse Ox 06/01/19 18:00 100 06/01/19 17:45 100 06/01/19 17:39 100 06/01/19 17:30 100 06/01/19 17:15 99 06/01/19 17:00 98 06/01/19 16:50 06/01/19 16:39 98 06/01/19 16:15 100 06/01/19 16:00 100 06/01/19 15:50 99 06/01/19 15:40 100 06/01/19 15:30 100 06/01/19 15:23 100 06/01/19 11:16 100 Coding Level of Care Code 51133 Inpt Consult Level 5 Diagnoses Empyema of right pleural space J86.9 MDD (major depressive disorder) F32.9 Protein calorie malnutrition E46 COPD (chronic obstructive pulmonary disease) J44.9 Admitted to intensive care unit Z78.9 Pneumonia J18.9 Time Spent (min) 35
[2019-06-01] MEDS ORDERED: QUETIAPINE FUMARATE 25 MG TABLET PO SCH (21:00)
[2019-06-01] MEDS: DOCUSATE SODIUM 100 MG CAP PO SCH (21:21)
[2019-06-01] MEDS: QUETIAPINE FUMARATE 25 MG TABLET PO SCH (21:21)
[2019-06-01] MEDS: NICOTINE 21 MG/24 HR TDSY TD SCH (21:22)
[2019-06-01 23:00] LABS: Hematocrit (blood only) 26.4 % (37-47); Hemoglobin 8.6 g/dL (12.0-16.0); Mean Corpuscular Hemoglobin 26.5 pg (25-34); Mean Corpuscular Hgb Conc 32.6 g/dL (32-36); Mean Corpuscular Volume 81.5 fL (80-100); Mean Platelet Volume 8.1 fL (7.4-10.4); Platelet Count 531 K/uL (130-400); RDW Coefficient of Variation 15.2 % (11.5-14.5); RDW Standard Deviation 44.7 fL (36.4-46.3); Red Blood Count 3.24 M/uL (4.2-5.4); White Blood Count 29.45 K/uL (4.8-10.8)
[2019-06-01 23:37] LABS: BUN Creatinine Ratio 24.4 (10-20); Calcium 7.3 mg/dl (8.5-10.1); Est GFR (African American) 126.2; Est GFR (Non-African American) 108.9; Magnesium 1.6 mg/dl (1.8-2.4); Phosphorus 3.2 mg/dl (2.5-4.9); Potassium 4.1 mmol/L (3.5-5.1)
[2019-06-01 23:50] LABS: Basophils # (auto) 0.02 K/uL (0-0.2); Basophils % (auto) 0.1 %; Eosinophils # (auto) 0.02 K/uL (0-0.5); Eosinophils % (auto) 0.1 %; Immature Granulocytes # (auto) 0.33 K/uL (0.00-0.02); Immature Granulocytes % (auto) 1.1 %; Lymphocytes # (auto) 2.04 K/uL (1.2-3.4); Lymphocytes % (auto) 6.9 %; Monocytes # (auto) 1.46 K/uL (0.11-0.59); Neutrophils # (auto) 25.58 K/uL (1.4-6.5); Neutrophils % (auto) 86.8 %; RBC Morphology Unremarkable
[2019-06-02] MEDS: METOCLOPRAMIDE HCL INJ 5 MG/ML 2 ML VIAL IV SCH ×2 (00:24→07:22)
[2019-06-02] MEDS: OXYCODONE HCL IR 5 MG TAB (IMMEDIATE RELEASE) PO PRN ×4 (00:24→23:47)
[2019-06-02] MEDS: MAGNESIUM SULFATE / D5W 1 GM/100 ML BAG IV SCH ×2 (00:33→02:40)
[2019-06-02] MEDS: ACETAMINOPHEN 1,000 MG/100 ML VIAL IV SCH ×3 (02:41→18:32)
[2019-06-02] MEDS: PIPERACILLIN/TAZOBACTAM 3.375 GM in DEXTROSE 5% 100 ML IV SCH ×3 (02:42→19:07)
[2019-06-02] MEDS: D5W AND 1/2NSS 1,000 ML IV SCH ×3 (04:05→18:32)
[2019-06-02 05:02] LABS: Hematocrit (blood only) 25.6 % (37-47); Hemoglobin 8.4 g/dL (12.0-16.0); Mean Corpuscular Hemoglobin 26.7 pg (25-34); Mean Corpuscular Hgb Conc 32.8 g/dL (32-36); Mean Corpuscular Volume 81.3 fL (80-100); Platelet Count 614 K/uL (130-400); RDW Coefficient of Variation 15.3 % (11.5-14.5); RDW Standard Deviation 45.1 fL (36.4-46.3); Red Blood Count 3.15 M/uL (4.2-5.4); White Blood Count 27.26 K/uL (4.8-10.8)
[2019-06-02 05:25] LABS: BUN Creatinine Ratio 21.9 (10-20); Calcium 7.6 mg/dl (8.5-10.1); Creatinine Clr Calc Pharmacy 85.6 ml/min; Est GFR (Non-African American) 111.3; Magnesium 2.8 mg/dl (1.8-2.4); Potassium 3.9 mmol/L (3.5-5.1)
[2019-06-02] MEDS: IPRATROPIUM BROMIDE NEB SOLN 0.02% 2.5 ML VIAL INH SCH ×3 (07:16→23:08)
[2019-06-02] MEDS: LEVALBUTEROL 1.25MG/0.5ML NEB INH SCH ×3 (07:16→23:08)
[2019-06-02] MEDS: MoRPHine SULFATE 2 MG/ML CARP IV PRN ×4 (07:21→18:32)
[2019-06-02] MEDS: DOCUSATE SODIUM 100 MG CAP PO SCH ×2 (07:22→20:19)
[2019-06-02] MEDS: ENOXAPARIN INJ 30 MG/0.3 ML SYR SQ SCH (07:22)
[2019-06-02] MEDS: SERTRALINE HCL 100 MG TABLET PO SCH ×2 (07:22→20:19)
--- NOTE | 2019-06-02 07:22 | XRay Report ---
XR chest 1V portable HISTORY: 58 years-old Female empyema; s/p decortication follow-up study in a patient with recent rig ht chest surgery COMPARISON: Chest radiograph 06/01/2019 TECHNIQUE: Portable AP view of the chest FINDINGS: Postoperative changes of the right hemithorax. Right-sided chest tube distal tip terminates adjacent to the right midlung. An additional chest tube is noted terminating about the right lung base. Decrea sed size of the right pneumothorax, now with pleural separation laterally approximately 6 mm, previou sly 1.8 mm. Loculated right pleural effusion with right midlung and right lung base opacities persist . There is improved aeration of the right lung. Cardiomegaly. Trace left pleural effusion with improv ed aeration of the left lung base. Degenerative changes of the shoulders and spine. Fusion hardware o f the lumbar spine. IMPRESSION: 1. Postoperative changes of the right hemithorax with stable positioning of the right-sided chest tub es. 2. Right hydropneumothorax with decreased size of the right pneumothorax. 3. Improved aeration of the bilateral lung bases. ACT 112: Negative or not required by law. The above report was generated using voice recognition software. It may contain grammatical, syntax o r spelling errors. Electronically signed by: Graham Gutierrez M.D. 06/02/2019 7:21 AM
--- NOTE | 2019-06-02 08:30 | Surgery Progress Note ---
Date of Service June 02, 2019 Assessment & Plan (1) Empyema: Hopefully, the gram-positive cocci will be identified today by micro. She looks very good and can be transferred to the third floor to manage her chest tubes. I would continue her IV fluid for the next day. Her hemoglobin is stable. She has a much small air leak in her x-ray, while showing changes in the right base, is improved from postop. My hope is that the air leak improves over the next few days we can get her chest tubes out. Overall I am quite pleased with her response to this rather major surgery. Present on Admission?: Yes (2) S/P lung surgery, follow-up exam: Adalberto Schuster has no real complaints today. She is on room air. She sitting up in a chair having just eaten breakfast. Her urine output was a little low last night however, by enlarge she has done superbly. Physical Exam Physical Exam: She is awake and alert. She is conversive. She is moving air well on the left and has some mild wheezing with some rhonchi on the right. She has a regular rate and rhythm of her heart rate in the 80s. Abdomen is soft. She has no peripheral edema. SCDs are in place. Results & Data Vital Signs (Past 12 Hours) Vital Signs Pulse Pulse Resp BP Pulse Ox Pulse Ox 06/02/19 07:18 84 18 97 06/02/19 04:00 98 06/02/19 00:00 98 06/01/19 23:54 82 06/01/19 23:50 82 21 99 06/01/19 23:40 86 22 100 06/01/19 23:39 85 22 135/68 99 06/01/19 23:30 83 23 98 06/01/19 23:20 85 23 98 06/01/19 23:10 82 21 99 06/01/19 23:00 82 20 99 06/01/19 22:57 83 18 99 06/01/19 22:50 90 23 100 06/01/19 22:40 82 21 99 06/01/19 22:39 82 19 136/70 99 06/01/19 22:30 83 19 100 06/01/19 22:20 82 18 99 06/01/19 22:10 84 25 H 99 06/01/19 22:00 81 22 100 06/01/19 21:50 78 25 H 98 06/01/19 21:40 79 23 100 06/01/19 21:39 78 22 135/67 100 06/01/19 21:30 78 23 100 06/01/19 21:20 83 20 98 06/01/19 21:10 85 18 99 06/01/19 21:00 79 20 99 06/01/19 20:50 80 21 100 06/01/19 20:40 81 19 100 06/01/19 20:39 81 20 139/71 100 06/01/19 20:30 81 20 100 PG Care Time/CCT Total # of Minutes Spent Total Time Spent with Patient: Total time spent is greater than 50% in coordination of care (as documented) at patient's floor/unit and/or counseling patient:
--- NOTE | 2019-06-02 11:04 | Pulmonology Progress Note ---
Date of Service June 02, 2019 Assessment & Plan (1) Empyema of right pleural space: --Located right-sided pleural effusion Has been going on since March 2019 Patient failed outpatient therapy with 3 courses of antibiotics There is progressive worsening of the effusion. Patient had bedside ultrasound done at the office by Dr. Ramirez which showed complicated effusion Status post VATS surgery on 06/01/2019 Continue with antibiotics, follow-up septic work-up and culture from the fluid. Incentive spirometry post OR. CT chest without contrast prior to discharge to rule out any mass causing right lower lobe pneumonia. -- Right-sided pneumothorax with persistent air leak Likely there is a component of trapped lung That was decortication done at the time of the OR Monitoring with serial chest x-rays to see if the lung opened up. Chest x-ray 06/02/2019: Shows decreasing in size of the right-sided pneumothorax. --COPD With active smoking history, not in exacerbation Continue with inhaled bronchodilator therapy Patient only on albuterol at home. Will benefit from lama inhaler prior to discharge. Keep O2 saturation between 88 to 92% C/w nicotine patch Patient to follow-up with pulmonary Dr. Ramirez within 2 weeks after discharge. Please note the above document was generated using voice recognition software. It may contain grammatical, syntax or spelling errors. (2) COPD (chronic obstructive pulmonary disease): (3) Tobacco abuse: (4) Shortness of breath: Subjective Patient seen and examined at bedside. No acute distress, no adverse events overnight Patient had VATS on 06/01/2019 status post removal of malodorous pleural fluid approximately 1 L. Postoperative day #1. Patient denies any shortness of breath, occasional dry cough, no nausea or vomiting, good appetite. Does complain of soreness at the site of the chest tube. Patient has 2 right-sided chest tubes. The apical one has 300 mL in the drainage canister, the basal one has 200 mL. There is continuous possible air leak appreciated in the apical chest tube. Review of Systems Review of Systems: All systems reviewed & are unremarkable except as noted in HPI & below Physical Exam Physical Exam: Constitutional: No acute distress, temporal wasting HEENT: EOMI, PERRLA, moist mucous membranes Respiratory system: Decreased air entry on the right side, positive bilateral lower lobe crackles, no wheeze, no rhonchi CVS: S1-S2 positive, no murmurs or gallops, accentuated P2 Abdomen: Soft, nontender, nondistended, positive bowel sounds x4 Extremities: +2 pulses bilaterally radialis/ dorsalis pedis, no cyanosis, no edema, osteoarthritic changes especially rated at the distal phalanx of bilateral fingers, prominent right chest superficial veins Neuro: Awake alert oriented x3 Psych: Normal mood and affect G/U: +ve Perez Positive chest tubes right side. One apical and other one basal. Skin: no rashes, warm and dry Lymphatic: no cervical or axillary lymphadenopathy Results & Data Vital Signs (Past 12 Hours) Vital Signs Pulse Pulse Resp BP Pulse Ox Pulse Ox 06/02/19 07:18 84 18 97 06/02/19 04:00 98 06/02/19 00:00 98 06/01/19 23:54 82 06/01/19 23:50 82 21 99 06/01/19 23:40 86 22 100 06/01/19 23:39 85 22 135/68 99 06/01/19 23:30 83 23 98 06/01/19 23:20 85 23 98 06/01/19 23:10 82 21 99 06/01/19 23:00 82 20 99 06/02/19 04:35 06/02/19 04:35 PG Care Time/CCT Total # of Minutes Spent Total Time Spent with Patient: Total time spent is greater than 50% in coordination of care (as documented) at patient's floor/unit and/or counseling patient:
[2019-06-02 12:07] LABS: Hematocrit (blood only) 25.6 % (37-47); Hemoglobin 8.4 g/dL (12.0-16.0)
[2019-06-02] MEDS ORDERED: POLYETHYLENE (MIRALAX) 17 GM PACK PO PRN (14:24)
--- NOTE | 2019-06-02 14:32 | Hospitalist Progress Note ---
Date of Service June 02, 2019 Assessment & Plan (1) Pleural effusion: (2) Pneumonia: Patient is a 58 yr female with H/O COPD, tobacco use disorder, depression and other medical problems listed below who presents from pulmonary clinic as direct admission with what appears to be ongoing pneumonia and pleural effusion. Loculated right-sided pleural effusion/Empyema CXR: Large opacity of the right lung base right and midlung suggests combination of pleural effusion with atelectasis/consolidation. Correlate with chest CT to exclude mucous plugging and/or occluding mass. 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 (4) COPD (chronic obstructive pulmonary disease): Continue Nebs (5) Protein calorie malnutrition: Patient is cachectic and has lost approximately 12 pounds with underlying infection Dietitian consulted Continue MV for folate deficiency (6) MDD (major depressive disorder): Continue Zoloft, Seroquel DVT Px: Lovenox SQ Code status: Full Code Disposition PT OT prior to discharge Subjective Patient is seen and examined at bedside Doing well today Reports constipation Also reports soreness at the site of chest tube Offers no other complaints Denies any nausea, vomiting, dizziness, abdominal pain, SOB Review of Systems Review of Systems: All systems reviewed & are unremarkable except as noted in HPI & below Physical Exam Physical Exam: Physical Exam: Vitals signs as noted above General Appearance: Thin, frail, chronically appearing, no apparent distress Head: normocephalic, Atraumatic Eyes: normal inspection, EOMI Neck: supple, Trachea midline Respiratory/Chest: Decreased breath sounds on Right side, Basal Crackles, R + chest tube Cardiovascular: S1, S2, No murmur Abdomen/GI:Soft, Non tender, Bowel sounds present Extremities/Musculoskelatal:normal inspection, no edema Neurologic/Psych:AAOX3, grossly no focal neurological deficits Skin: normal color, warm Results & Data Vital Signs (Past 12 Hours) Vital Signs Pulse Resp Pulse Ox Pulse Ox 06/02/19 13:35 103 H 18 94 06/02/19 07:18 84 18 97 01/18/20 04:00 98 Laboratory Results Short CBC 06/01/19 06/02/19 06/02/19 Range/Units 22:52 04:35 12:01 WBC 29.45 H 27.26 H (4.8-10.8) K/uL Hgb 8.6 L 8.4 L 8.4 L (12.0-16.0) g/dL Hct 26.4 L 25.6 L 25.6 L (37-47) % Plt Count 531 H 614 H (130-400) K/uL BMP 06/01/19 06/02/19 22:52 04:35 Sodium 138 135 L Potassium 4.1 3.9 Chloride 110 H 107 Carbon Dioxide 25 26 BUN 11 9 Creatinine 0.46 L 0.43 L Glucose 133 H 148 H Calcium 7.3 L D 7.6 L
[2019-06-02] MEDS: QUETIAPINE FUMARATE 25 MG TABLET PO SCH (20:20)
[2019-06-02] MEDS: NICOTINE 21 MG/24 HR TDSY TD SCH (22:07)
[2019-06-03] MEDS: ACETAMINOPHEN 1,000 MG/100 ML VIAL IV SCH ×3 (02:17→16:37)
[2019-06-03] MEDS: PIPERACILLIN/TAZOBACTAM 3.375 GM in DEXTROSE 5% 100 ML IV SCH ×3 (02:30→16:52)
[2019-06-03] MEDS: D5W AND 1/2NSS 1,000 ML IV SCH (02:31)
[2019-06-03] MEDS: MoRPHine SULFATE 2 MG/ML CARP IV PRN ×4 (04:18→18:02)
[2019-06-03 06:23] LABS: Hematocrit (blood only) 23.4 % (37-47); Hemoglobin 7.7 g/dL (12.0-16.0); Mean Corpuscular Hemoglobin 26.6 pg (25-34); Mean Corpuscular Hgb Conc 32.9 g/dL (32-36); Mean Platelet Volume 8.2 fL (7.4-10.4); Platelet Count 597 K/uL (130-400); RDW Coefficient of Variation 15.6 % (11.5-14.5); Red Blood Count 2.89 M/uL (4.2-5.4); White Blood Count 21.33 K/uL (4.8-10.8)
[2019-06-03 06:57] LABS: BUN Creatinine Ratio 9.7 (10-20); Calcium 7.2 mg/dl (8.5-10.1); Creatinine Clr Calc Pharmacy 62.6 ml/min; Est GFR (African American) 116.3; Est GFR (Non-African American) 100.3; Potassium 2.9 mmol/L (3.5-5.1)
[2019-06-03 07:09] LABS: Beta-Hydroxybutyrate 0.63 mg/dl (0.2-2.81)
[2019-06-03] MEDS: LEVALBUTEROL 1.25MG/0.5ML NEB INH SCH ×3 (07:15→22:46)
[2019-06-03] MEDS: IPRATROPIUM BROMIDE NEB SOLN 0.02% 2.5 ML VIAL INH SCH ×3 (07:16→22:46)
[2019-06-03 08:01] LABS: BUN Creatinine Ratio 16.2 (10-20); Calcium 8.1 mg/dl (8.5-10.1); Creatinine Clr Calc Pharmacy 85.8 ml/min; Est GFR (Non-African American) 111.3; Potassium 3.8 mmol/L (3.5-5.1)
--- NOTE | 2019-06-03 08:14 | XRay Report ---
XR chest 1V portable CLINICAL HISTORY: 58 years-old Female presenting with empyema. TECHNIQUE: Portable upright AP view of the chest was obtained. COMPARISON: 06/02/2019. FINDINGS: Large bore right pleural drains remain positioned at the periphery of the right midlung and right dodie g base. Atherosclerosis of the aortic arch. Cardiac silhouette moderately enlarged. No significant pu lmonary vascular prominence. Right pleural effusion and a right basilar trace pneumothorax persists. Right mid to basilar opacity. Architectural distortion of the right lung base due to postsurgical dionne nge and underlying opacity. Lumbar fusion hardware. Upper abdomen normal. IMPRESSION: 1. Stable examination. 2. Unchanged right basilar hydropneumothorax with the pleural drains in place. 3. Postsurgical changes of the right lung with underlying right basilar atelectasis/consolidation.. ACT 112: Negative or not required by law. Electronically signed by: John Gordon M.D. 06/03/2019 8:13 AM
--- NOTE | 2019-06-03 08:14 | Surgery Progress Note ---
Date of Service June 03, 2019 Assessment & Plan (1) Streptococcal infection: Present on Admission?: Yes (2) S/P lung surgery, follow-up exam: Present on Admission?: No (3) Empyema: Mariely is getting better every day. Her air leak is smaller. She is draining serous fluid. Her x-ray shows she does have a component of a trapped lung however space is getting smaller. When her air leak stopped I suspect this will resolve. She appears to be growing out a strep intermedius which is not surprising. Her white count was down to 21,000 I have then repeat that because I think the lab work from early this morning is off as her glucose was 491 and a repeat was only 119 and she does not have a history of diabetes. At any rate I think she looks better. We will continue ambulating her in the hallway. Her appetite is poor. I am to start her on some Megace for the next few days. Present on Admission?: Yes Subjective Mariely was seen today. She is sitting up in the chair washing her face. She has a very good cough. She feels better. She is making good urine. Physical Exam Physical Exam: Her dressings are dry. She is moving air better although she does have some rhonchi. I really hear any wheezing today. She has a regular rate and rhythm of her heart. She is in good spirits and is awake, oriented, and conversive. Results & Data Vital Signs (Past 12 Hours) Vital Signs Temp Pulse Resp BP Pulse Ox 06/03/19 07:19 84 18 92 06/03/19 07:00 36.7 C 79 16 166/63 H 92 06/03/19 02:19 78 94 06/02/19 23:04 36.7 C 85 14 146/69 H 93 06/02/19 23:03 36.7 C PG Care Time/CCT Total # of Minutes Spent Total Time Spent with Patient: Total time spent is greater than 50% in coordination of care (as documented) at patient's floor/unit and/or counseling patient:
[2019-06-03 08:55] LABS: Hematocrit (blood only) 28.2 % (37-47); Hemoglobin 9.2 g/dL (12.0-16.0); Mean Corpuscular Hemoglobin 26.7 pg (25-34); Mean Corpuscular Volume 81.7 fL (80-100); Platelet Count 678 K/uL (130-400); RDW Coefficient of Variation 15.7 % (11.5-14.5); RDW Standard Deviation 45.7 fL (36.4-46.3); Red Blood Count 3.45 M/uL (4.2-5.4); White Blood Count 23.79 K/uL (4.8-10.8)
[2019-06-03] MEDS: SERTRALINE HCL 100 MG TABLET PO SCH ×2 (09:05→20:01)
[2019-06-03] MEDS: ENOXAPARIN INJ 30 MG/0.3 ML SYR SQ SCH (09:05)
[2019-06-03] MEDS: DOCUSATE SODIUM 100 MG CAP PO SCH ×2 (09:05→20:01)
--- NOTE | 2019-06-03 09:37 | Pulmonology Progress Note ---
Date of Service June 03, 2019 Assessment & Plan (1) Empyema of right pleural space: --Located right-sided pleural effusion Has been going on since March 2019 Patient failed outpatient therapy with 3 courses of antibiotics There is progressive worsening of the effusion. Patient had bedside ultrasound done at the office by Dr. Ramirez which showed complicated effusion Status post VATS surgery on 06/01/2019 Continue with antibiotics, follow-up septic work-up and culture from the fluid --> Growing streptococcus Incentive spirometry post OR. CT chest without contrast prior to discharge to rule out any mass causing right lower lobe pneumonia. Patient has 2 right-sided chest tubes. The apical one has 400 mL in the drainage canister, the basal one has 300 mL. There is continuous +1 air leak appreciated in the apical chest tube. Total drainage from the chest tube in the last 24 hours 200 mL. -- Right-sided pneumothorax with persistent air leak Likely there is a component of trapped lung That was decortication done at the time of the OR Monitoring with serial chest x-rays to see if the lung opened up. Chest x-ray 06/03/2019: Thickened pleura with pneumothorax appreciated. Chest tubes in place. --COPD With active smoking history, not in exacerbation Continue with inhaled bronchodilator therapy Patient only on albuterol at home. Will benefit from lama inhaler prior to discharge. Keep O2 saturation between 88 to 92% C/w nicotine patch Patient to follow-up with pulmonary Dr. Ramirez within 2 weeks after discharge. Please note the above document was generated using voice recognition software. It may contain grammatical, syntax or spelling errors. (2) COPD (chronic obstructive pulmonary disease): (3) Tobacco abuse: (4) Shortness of breath: Subjective Patient seen and examined at bedside. No acute distress, no adverse events overnight. POD#2 Patient states she is feeling better. Complains of still soreness at the site of the chest tube. Denies any shortness of breath, cough is decreased in intensity. Denies any nausea or vomiting. Good appetite. No headache, no dysuria, no diarrhea. Patient has 2 right-sided chest tubes. The apical one has 400 mL in the drainage canister, the basal one has 300 mL. There is continuous +1 air leak appreciated in the apical chest tube. Total drainage from the chest tube in the last 24 hours 200 mL. Review of Systems Review of Systems: All systems reviewed & are unremarkable except as noted in HPI & below Physical Exam Physical Exam: Constitutional: No acute distress, temporal wasting HEENT: EOMI, PERRLA, moist mucous membranes Respiratory system: Decreased air entry on the right side, positive bilateral lower lobe crackles, no wheeze, no rhonchi CVS: S1-S2 positive, no murmurs or gallops, accentuated P2 Abdomen: Soft, nontender, nondistended, positive bowel sounds x4 Extremities: +2 pulses bilaterally radialis/ dorsalis pedis, no cyanosis, no edema, osteoarthritic changes especially rated at the distal phalanx of bilateral fingers, prominent right chest superficial veins Neuro: Awake alert oriented x3 Psych: Normal mood and affect G/U: +ve Perez Positive chest tubes right side. One apical and other one basal. Skin: no rashes, warm and dry Lymphatic: no cervical or axillary lymphadenopathy Results & Data Vital Signs (Past 12 Hours) Vital Signs Temp Pulse Resp BP Pulse Ox 06/03/19 07:19 84 18 92 06/03/19 07:00 36.7 C 79 16 166/63 H 92 06/03/19 02:19 78 94 06/02/19 23:04 36.7 C 85 14 146/69 H 93 06/02/19 23:03 36.7 C 06/03/19 08:44 06/03/19 07:12 Microbiology 06/01/19 Unknown Lung,Right Gram Stain - Final 06/01/19 Unknown Lung,Right Aerobic and Anaerobic Culture - Preliminary Streptococcus species PG Care Time/CCT Total # of Minutes Spent Total Time Spent with Patient: Total time spent is greater than 50% in coordination of care (as documented) at patient's floor/unit and/or counseling patient:
[2019-06-03 09:48] LABS: Mean Corpuscular Hgb Conc 32.6 g/dL (32-36)
[2019-06-03] MEDS: OXYCODONE HCL IR 5 MG TAB (IMMEDIATE RELEASE) PO PRN ×2 (13:02→20:01)
--- NOTE | 2019-06-03 18:03 | Hospitalist Progress Note ---
Date of Service June 03, 2019 Assessment & Plan (1) Pleural effusion: (2) Pneumonia: Patient is a 58 yr female with H/O COPD, tobacco use disorder, depression and other medical problems listed below who presents from pulmonary clinic as direct admission with what appears to be ongoing pneumonia and pleural effusion. Loculated right-sided pleural effusion/Empyema CXR: Large opacity of the right lung base right and midlung suggests combination of pleural effusion with atelectasis/consolidation. Correlate with chest CT to exclude mucous plugging and/or occluding mass. S/P right thoracoscopy with extensive decortication, evacuation of pleural contents POD #2 Appreciate pulmonary, CT surgery help Pleural fluid studies: Growing Streptococcus Continue IV zosyn Pain control Needs repeat CT prior to discharge to rule out mass/pneumonia Continue incentive spirometry Needs follow-up with pulmonology Dr. Ramirez upon discharge in 2 weeks And he complained of trapped lung. 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 (4) COPD (chronic obstructive pulmonary disease): Continue Nebs (5) Protein calorie malnutrition: Patient is cachectic and has lost approximately 12 pounds with underlying infection Dietitian consulted Continue MV for folate deficiency (6) MDD (major depressive disorder): Continue Zoloft, Seroquel DVT Px: Lovenox SQ Code status: Full Code Disposition PT OT prior to discharge Subjective Patient is seen and examined at bedside Left ventricular states feeling much better today Soreness at the site of chest tube much improved No new complaints Denies any nausea, vomiting, dizziness, abdominal pain, SOB Review of Systems Review of Systems: All systems reviewed & are unremarkable except as noted in HPI & below Physical Exam Physical Exam: Physical Exam: Vitals signs as noted above General Appearance: Thin, frail, chronically appearing, no apparent distress Head: normocephalic, Atraumatic Eyes: normal inspection, EOMI Neck: supple, Trachea midline Respiratory/Chest: Decreased breath sounds on Right side, Basal Crackles, R + chest tube Cardiovascular: S1, S2, No murmur Abdomen/GI:Soft, Non tender, Bowel sounds present Extremities/Musculoskelatal:normal inspection, no edema Neurologic/Psych:AAOX3, grossly no focal neurological deficits Skin: normal color, warm Results & Data Vital Signs (Past 12 Hours) Vital Signs Temp Pulse Resp BP Pulse Ox 06/03/19 15:14 36.5 C 89 16 155/76 H 93 06/03/19 14:52 59 L 18 93 06/03/19 07:19 84 18 92 06/03/19 07:00 36.7 C 79 16 166/63 H 92 Laboratory Results Short CBC 06/03/19 06/03/19 Range/Units 05:51 08:44 WBC 21.33 H 23.79 H (4.8-10.8) K/uL Hgb 7.7 L 9.2 L (12.0-16.0) g/dL Hct 23.4 L 28.2 L (37-47) % Plt Count 597 H 678 H (130-400) K/uL BMP 06/03/19 06/03/19 05:51 07:12 Sodium 132 L 138 Potassium 2.9 L D 3.8 D Chloride 102 106 Carbon Dioxide 25 29 BUN 6 L 7 Creatinine 0.59 L 0.43 L Glucose 491 H* 111 H Calcium 7.2 L 8.1 L
[2019-06-03] MEDS: QUETIAPINE FUMARATE 25 MG TABLET PO SCH (20:01)
[2019-06-03] MEDS: NICOTINE 21 MG/24 HR TDSY TD SCH (21:47)
[2019-06-04] MEDS: MoRPHine SULFATE 2 MG/ML CARP IV PRN ×2 (00:28→03:06)
[2019-06-04] MEDS: ACETAMINOPHEN 1,000 MG/100 ML VIAL IV SCH ×2 (02:02→10:27)
[2019-06-04] MEDS: PIPERACILLIN/TAZOBACTAM 3.375 GM in DEXTROSE 5% 100 ML IV SCH ×3 (02:13→18:21)
[2019-06-04 05:39] LABS: Basophils # (auto) 0.09 K/uL (0-0.2); Basophils % (auto) 0.4 %; Eosinophils # (auto) 0.59 K/uL (0-0.5); Eosinophils % (auto) 2.7 %; Hematocrit (blood only) 26.8 % (37-47); Hemoglobin 8.7 g/dL (12.0-16.0); Immature Granulocytes # (auto) 0.73 K/uL (0.00-0.02); Immature Granulocytes % (auto) 3.3 %; Lymphocytes % (auto) 15.5 %; Mean Corpuscular Hemoglobin 26.6 pg (25-34); Mean Corpuscular Hgb Conc 32.5 g/dL (32-36); Mean Platelet Volume 8.1 fL (7.4-10.4); Monocytes # (auto) 1.13 K/uL (0.11-0.59); Monocytes % (auto) 5.2 %; Neutrophils # (auto) 15.95 K/uL (1.4-6.5); Neutrophils % (auto) 72.9 %; Platelet Count 722 K/uL (130-400); RDW Standard Deviation 47.3 fL (36.4-46.3); Red Blood Count 3.27 M/uL (4.2-5.4); White Blood Count 21.89 K/uL (4.8-10.8)
[2019-06-04 06:08] LABS: BUN Creatinine Ratio 22.5 (10-20); Calcium 8.7 mg/dl (8.5-10.1); Est GFR (African American) 127.1; Est GFR (Non-African American) 109.7; Potassium 3.7 mmol/L (3.5-5.1)
[2019-06-04] MEDS: IPRATROPIUM BROMIDE NEB SOLN 0.02% 2.5 ML VIAL INH SCH ×3 (07:14→23:36)
[2019-06-04] MEDS: LEVALBUTEROL 1.25MG/0.5ML NEB INH SCH ×3 (07:14→23:36)
--- NOTE | 2019-06-04 08:05 | Anesthesiology Progress Note ---
Date of Service June 04, 2019 Anesthesia Post Procedure Vital Signs Vital Signs: Temp Pulse Pulse Resp BP Pulse Ox 06/04/19 07:14 78 18 97 06/04/19 07:02 36.8 C 77 16 174/83 H 96 06/03/19 23:02 36.8 C 83 18 159/70 H 96 06/03/19 22:46 80 18 06/03/19 15:14 36.5 C 89 16 155/76 H 93 06/03/19 14:52 59 L 18 93 Pain Intensity Right Chest: Pain Intensity: 8 Notes Mental Status: alert / awake / arousable and participated in evaluation Nausea / Vomiting: adequately controlled Pain: adequately controlled and improving with treatment Airway Patency, RR, SpO2: stable & adequate BP & HR: stable & adequate Hydration State: stable & adequate
--- NOTE | 2019-06-04 08:12 | Pulmonology Progress Note ---
Date of Service June 04, 2019 Assessment & Plan (1) Empyema: Impression: 58-year-old female with advanced obstructive lung disease due to ongoing tobacco abuse admitted with empyema status post decortication. Cultures are growing strep intermedius. Recommendation: 1. Empyema: Continue chest tube management per thoracic surgery. Currently day #4 Zosyn. Would continue Zosyn for now. Will likely need 6 weeks of antibiotics. Can consider transition to oral when the patient is ready to leave the hospital. 2. COPD: Increasing wheezing today. Start Spiriva and Perforomist. Continue as needed duo nebs. 3. Tobacco abuse: Patient is doing well off cigarettes. Continue nicotine replacement. 4. We will continue to follow with you (2) COPD (chronic obstructive pulmonary disease): (3) Streptococcal infection: Subjective Patient seen and examined. She is sitting up in chair and ambulating around the days. She continues to demonstrate a small air leak. She does not report any shortness of breath or respiratory problems. She overall feels better. She is eating. Her pain is adequately controlled currently. Review of Systems Review of Systems: 12 point review of systems completed with the patient is negative except as noted above Physical Exam Constitutional: + cachectic; no acute distress Neck: trachea midline, no thyromegaly Respiratory: Bilateral wheezing noted. Breath sounds diminished Cardiovascular: RRR, no murmur, no edema Gastrointestinal (Abdomen): normal bowel sounds, soft, nontender, no hepatosplenomegaly Skin: no rashes, warm and dry Results & Data Vital Signs (Past 12 Hours) Vital Signs Temp Pulse Pulse Resp BP Pulse Ox 06/04/19 07:14 78 18 97 06/04/19 07:02 36.8 C 77 16 174/83 H 96 06/03/19 23:02 36.8 C 83 18 159/70 H 96 06/03/19 22:46 80 18 Laboratory Results 06/04/19 04:51 06/04/19 04:51 Pleural cultures growing strep intermedius Diagnostic Findings No film today PG Care Time/CCT Total # of Minutes Spent Total Time Spent with Patient: Total time spent is greater than 50% in coordination of care (as documented) at patient's floor/unit and/or counseling patient:
[2019-06-04] MEDS: OXYCODONE HCL IR 5 MG TAB (IMMEDIATE RELEASE) PO PRN ×3 (08:40→21:33)
[2019-06-04] MEDS: SERTRALINE HCL 100 MG TABLET PO SCH ×2 (08:41→21:31)
[2019-06-04] MEDS: ENOXAPARIN INJ 30 MG/0.3 ML SYR SQ SCH (08:41)
[2019-06-04] MEDS: DOCUSATE SODIUM 100 MG CAP PO SCH (08:41)
[2019-06-04] MEDS: LACTOBACILLUS ACIDOPHILUS 1 GM PACK PO SCH ×3 (08:41→17:46)
--- NOTE | 2019-06-04 09:12 | XRay Report ---
XR chest 2V PA/lateral CLINICAL HISTORY: empyema COMPARISON STUDY: 06/03/2019 FINDINGS: The heart is mildly enlarged. 2 right-sided chest tubes remain unchanged in position. There is interval increase in the size of a right lateral basilar pneumothorax with pleural separation of 19 mm. There is right-sided pleural thickening. There are persistent but improving right basilar airs pace opacities. The left lung is clear. Postsurgical changes are present within the lumbar spine[ IMPRESSION: 1. Increasing right lateral basilar pneumothorax with pleural separation of 19 mm 2. Persistent but slightly improved right lower lung zone airspace opacities ACT 112: Negative or not required by law. Electronically signed by: Gavino Mcclure M.D. 06/04/2019 9:10 AM
[2019-06-04] MEDS: CHOLESTYRAMINE LIGHT 4 GM PKT PO SCH ×2 (10:32→21:32)
[2019-06-04] MEDS: UMECLIDINIUM BROMIDE 62.5MCG/BLISTER 7 PUFFS/INHALER INH SCH (10:32)
[2019-06-04] MEDS: FORMOTEROL 20 MCG/2 ML VIAL NEB SCH ×2 (11:03→19:35)
--- NOTE | 2019-06-04 13:41 | Surgery Progress Note ---
Date of Service June 04, 2019 Assessment & Plan (1) S/P lung surgery, follow-up exam: Present on Admission?: No (2) Empyema: Mariely looks good today. She is continued to improve however, her x-ray shows she still has incompletely expanded lung at the base. Her air leak is still significant but her fluid output is decreasing and is serous in nature. She is growing a strep intermedius from this fluid. We will continue antibiotics and her chest tube on suction for the time being. Present on Admission?: Yes (3) Streptococcal infection: Present on Admission?: Yes Subjective The patient has no real complaints. She is been up ambulating. She is on room air. Physical Exam Respiratory: She is moving air well in both sides although she has decreased breath sounds on the right. Results & Data Vital Signs (Past 12 Hours) Vital Signs Temp Pulse Pulse Resp BP Pulse Ox 06/04/19 11:03 76 16 97 06/04/19 07:26 145/77 H 06/04/19 07:14 78 18 97 06/04/19 07:02 36.8 C 77 16 174/83 H 96 PG Care Time/CCT Total # of Minutes Spent Total Time Spent with Patient: Total time spent is greater than 50% in coordination of care (as documented) at patient's floor/unit and/or counseling patient:
--- NOTE | 2019-06-04 18:13 | Hospitalist Progress Note ---
Date of Service June 04, 2019 Assessment & Plan (1) Pleural effusion: (2) Pneumonia: Patient is a 58 yr female with H/O COPD, tobacco use disorder, depression and other medical problems listed below who presents from pulmonary clinic as direct admission with what appears to be ongoing pneumonia and pleural effusion. Loculated right-sided pleural effusion/Empyema CXR: Large opacity of the right lung base right and midlung suggests combination of pleural effusion with atelectasis/consolidation. Correlate with chest CT to exclude mucous plugging and/or occluding mass. S/P right thoracoscopy with extensive decortication, evacuation of pleural contents POD #2 Appreciate pulmonary, CT surgery help Pleural fluid studies: Growing Streptococcus intermedius Continue IV zosyn Pain control Needs repeat CT prior to discharge to rule out mass/pneumonia Continue incentive spirometry Needs follow-up with pulmonology Dr. 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 (4) COPD (chronic obstructive pulmonary disease): Continue Nebs (5) Protein calorie malnutrition: Patient is cachectic and has lost approximately 12 pounds with underlying infection Dietitian consulted Continue MV for folate deficiency (6) MDD (major depressive disorder): Continue Zoloft, Seroquel DVT Px: Lovenox SQ Code status: Full Code Disposition PT OT prior to discharge Subjective Patient is seen and examined at bedside Reports diarrhea Denies any significant chest discomfort at chest tube site Denies any nausea, vomiting, dizziness, abdominal pain, SOB Offers no other complaints Review of Systems Review of Systems: All systems reviewed & are unremarkable except as noted in HPI & below Physical Exam Physical Exam: Physical Exam: Vitals signs as noted above General Appearance: Thin, frail, chronically appearing, no apparent distress Head: normocephalic, Atraumatic Eyes: normal inspection, EOMI Neck: supple, Trachea midline Respiratory/Chest: Decreased breath sounds on Right side, Basal Crackles, R + chest tube Cardiovascular: S1, S2, No murmur Abdomen/GI:Soft, Non tender, Bowel sounds present Extremities/Musculoskelatal:normal inspection, no edema Neurologic/Psych:AAOX3, grossly no focal neurological deficits Skin: normal color, warm Results & Data Vital Signs (Past 12 Hours) Vital Signs Temp Pulse Pulse Resp BP Pulse Ox 06/04/19 15:10 36.5 C 86 16 162/76 H 99 06/04/19 15:00 69 16 97 06/04/19 11:03 76 16 97 06/04/19 07:26 145/77 H 06/04/19 07:14 78 18 97 06/04/19 07:02 36.8 C 77 16 174/83 H 96 Laboratory Results Short CBC 06/04/19 Range/Units 04:51 WBC 21.89 H (4.8-10.8) K/uL Hgb 8.7 L (12.0-16.0) g/dL Hct 26.8 L (37-47) % Plt Count 722 H (130-400) K/uL BMP 06/04/19 04:51 Sodium 139 Potassium 3.7 Chloride 103 Carbon Dioxide 30 BUN 10 Creatinine 0.45 L Glucose 94 Calcium 8.7
[2019-06-04] MEDS: QUETIAPINE FUMARATE 25 MG TABLET PO SCH (21:31)
[2019-06-04] MEDS: NICOTINE 21 MG/24 HR TDSY TD SCH (21:31)
[2019-06-05] MEDS: PIPERACILLIN/TAZOBACTAM 3.375 GM in DEXTROSE 5% 100 ML IV SCH ×3 (02:25→18:01)
[2019-06-05] MEDS: MoRPHine SULFATE 2 MG/ML CARP IV PRN ×2 (04:04→21:41)
[2019-06-05 05:14] LABS: Basophils % (auto) 0.4 %; Eosinophils # (auto) 0.56 K/uL (0-0.5); Eosinophils % (auto) 2.5 %; Hematocrit (blood only) 28.9 % (37-47); Hemoglobin 9.3 g/dL (12.0-16.0); Immature Granulocytes # (auto) 0.76 K/uL (0.00-0.02); Immature Granulocytes % (auto) 3.4 %; Lymphocytes # (auto) 3.53 K/uL (1.2-3.4); Lymphocytes % (auto) 15.7 %; Mean Corpuscular Hemoglobin 26.3 pg (25-34); Mean Corpuscular Hgb Conc 32.2 g/dL (32-36); Mean Corpuscular Volume 81.6 fL (80-100); Monocytes # (auto) 1.17 K/uL (0.11-0.59); Monocytes % (auto) 5.2 %; Neutrophils # (auto) 16.42 K/uL (1.4-6.5); Neutrophils % (auto) 72.8 %; Platelet Count 711 K/uL (130-400); RDW Coefficient of Variation 16.4 % (11.5-14.5); RDW Standard Deviation 48.8 fL (36.4-46.3); Red Blood Count 3.54 M/uL (4.2-5.4); White Blood Count 22.54 K/uL (4.8-10.8)
[2019-06-05 05:35] LABS: Calcium 8.8 mg/dl (8.5-10.1); Creatinine Clr Calc Pharmacy 68.4 ml/min; Est GFR (African American) 119.7; Est GFR (Non-African American) 103.3; Potassium 3.8 mmol/L (3.5-5.1)
--- NOTE | 2019-06-05 07:13 | XRay Report ---
XR chest 1V portable CLINICAL HISTORY: 58 years-old Female presenting with empyema. TECHNIQUE: Portable upright AP view of the chest was obtained. COMPARISON: 06/04/2019. FINDINGS: Atherosclerosis of the aortic arch. Cardiac silhouette mildly enlarged. Large bore right pleural drai ns position at the periphery of the right midlung and right lung base. Persistent loculated right bas ilar pneumothorax, which has decreased in size. Associated pleural thickening. No large fluid compone nt. Subpleural densities right lower lung opacity similar to prior though there is improved aeration on the current exam. Left lung and pleural space clear. Lumbar fusion hardware. Upper abdomen normal. IMPRESSION: 1. Interval decreased size of the loculated right basilar pneumothorax with the pleural drains in pl [place]. No significant fluid component. 2. Right pleural thickening and subpleural right basilar consolidation as on prior. Improved aeratio n of the right lung base. 3. Mild cardiomegaly. ACT 112: Negative or not required by law. Electronically signed by: John Gordon M.D. 06/05/2019 7:11 AM
[2019-06-05] MEDS: LEVALBUTEROL 1.25MG/0.5ML NEB INH SCH ×3 (07:21→23:04)
[2019-06-05] MEDS: IPRATROPIUM BROMIDE NEB SOLN 0.02% 2.5 ML VIAL INH SCH ×3 (07:21→23:04)
[2019-06-05] MEDS: FORMOTEROL 20 MCG/2 ML VIAL NEB SCH ×2 (07:22→20:27)
[2019-06-05] MEDS: OXYCODONE HCL IR 5 MG TAB (IMMEDIATE RELEASE) PO PRN ×2 (08:03→16:58)
[2019-06-05] MEDS: ENOXAPARIN INJ 30 MG/0.3 ML SYR SQ SCH (08:04)
[2019-06-05] MEDS: UMECLIDINIUM BROMIDE 62.5MCG/BLISTER 7 PUFFS/INHALER INH SCH ×3 (08:04→18:13)
[2019-06-05] MEDS: LACTOBACILLUS ACIDOPHILUS 1 GM PACK PO SCH ×3 (08:04→16:53)
[2019-06-05] MEDS: SERTRALINE HCL 100 MG TABLET PO SCH ×2 (08:04→21:31)
--- NOTE | 2019-06-05 09:17 | Pulmonology Progress Note ---
Date of Service June 05, 2019 Assessment & Plan (1) Empyema: Impression: 58-year-old female with advanced obstructive lung disease due to ongoing tobacco abuse admitted with empyema status post decortication. Cultures are growing strep intermedius. She also has significant cachexia Recommendation: 1. Empyema: Continue chest tube management per thoracic surgery. Currently day #5 Zosyn. Would continue Zosyn for now. Will likely need 6 weeks of antibiotics. Can consider transition to oral when the patient is ready to leave the hospital. 2. COPD: Wheezing markedly improved. Continue Spiriva and Perforomist. Continue as needed duo nebs. Can transition to Anoro or Stiolto at discharge. Continue to increase activity as tolerated 3. Tobacco abuse: Patient is doing well off cigarettes. Continue nicotine replacement. 4. We will continue to follow with you (2) COPD (chronic obstructive pulmonary disease): (3) Streptococcal infection: Subjective Patient feels that her breathing is slightly better today. She has had 1 chest tube removed. She continues to have some discomfort associated with the residual chest tube. She is not expectorating any phlegm. No fevers chills or night sweats. No issues with antibiotics. Review of Systems Review of Systems: 12 point review of systems completed with the patient is negative except as noted above Physical Exam Constitutional: + cachectic; no acute distress Neck: trachea midline, no thyromegaly Respiratory: normal respiratory effort, lungs clear to auscultation Small air leak on residual chest tube Cardiovascular: RRR, no murmur, no edema Gastrointestinal (Abdomen): normal bowel sounds, soft, nontender, no hepatosplenomegaly Skin: no rashes, warm and dry Results & Data Vital Signs (Past 12 Hours) Vital Signs Temp Pulse Resp BP Pulse Ox 06/05/19 07:24 112 H 18 90 06/05/19 07:05 36.7 C 80 16 178/79 H 97 06/05/19 00:05 36.8 C 86 16 147/72 H 95 06/04/19 23:36 89 16 93 PG Care Time/CCT Total # of Minutes Spent Total Time Spent with Patient: Total time spent is greater than 50% in coordination of care (as documented) at patient's floor/unit and/or counseling patient:
[2019-06-05] MEDS: MEGESTROL ACETATE SUSP 400 MG/10 ML UDC PO SCH ×2 (10:22→21:31)
[2019-06-05] MEDS: CHOLESTYRAMINE LIGHT 4 GM PKT PO SCH ×2 (10:23→21:32)
--- NOTE | 2019-06-05 11:48 | Hospitalist Progress Note ---
Date of Service June 05, 2019 Assessment & Plan (1) Pleural effusion: (2) Pneumonia: Patient is a 58 yr female with H/O COPD, tobacco use disorder, depression and other medical problems listed below who presents from pulmonary clinic as direct admission with what appears to be ongoing pneumonia and pleural effusion. Loculated right-sided pleural effusion/Empyema CXR: Large opacity of the right lung base right and midlung suggests combination of pleural effusion with atelectasis/consolidation. Correlate with chest CT to exclude mucous plugging and/or occluding mass. S/P right thoracoscopy with extensive decortication, evacuation of pleural contents POD #3 Appreciate pulmonary, CT surgery help Pleural fluid studies: Growing Streptococcus intermedius Continue IV zosyn Pain control Needs repeat CT prior to discharge to rule out mass/pneumonia Continue incentive spirometry Needs follow-up with pulmonology Dr. 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 (4) COPD (chronic obstructive pulmonary disease): Continue Nebs (5) Protein calorie malnutrition: Patient is cachectic and has lost approximately 12 pounds with underlying inf ection Dietitian consulted Continue MV for folate deficiency (6) MDD (major depressive disorder): Continue Zoloft, Seroquel DVT Px: Lovenox SQ Code status: Full Code Labs Checked Disposition PT OT prior to discharge ROS-No Headache, No Visual Changes, No Nausea, No Vomiting, No Fever, No Chills, No Neck Pain or Stiffness, No Chest Pain, No Palpitations, No SOB, No SCHROEDER, No Cough, No Sputum, No Wheezing, No Abdominal Pain, No Diarrhea, No Hematemesis, No Hemoptysis, No Unexpected Weight Loss, No Flank pain, No Melena, No Hematochezia, No Frequency, No Urgency, No Burning, No Hematuria, No Rashes, No Diaphoresis. Appetite is Normal, Sore R Chest Physical Exam Gen-AAO x 3, NAD, Afebrile Head-NCAT, EOMI, PERRLA, Anicteric Sclera, No Posterior Pharyngeal Erythema Neck-Supple, No JVD, No Thyromegaly, No Masses, No LAD, No Bruits Lungs-R Chest Tubes, Chest-No S4, +S1, +S2, No S3, No Murmurs, No Rubs, No Gallops, No Ectopy Abdomen-Soft, Bowel Sounds Present, Non Tender, Non Distended, No Hepatomegaly, No Splenomegaly, No Palpable Masses, No Rebound, No Rigidity, No Guarding Musculoskeletal-Full Range of Motion Bilaterally, No CVAT Extremities-No Cyanosis, No Clubbing, No Edema Nuero-Cranial Nerves II-XII grossly intact, Motor WNL, DTRs WNL, Strength WNL, Non Focal Psych-Normal Mood Results & Data Vital Signs (Past 12 Hours) Vital Signs Temp Pulse Resp BP Pulse Ox 06/05/19 07:24 112 H 18 90 06/05/19 07:05 36.7 C 80 16 178/79 H 97 06/05/19 00:05 36.8 C 86 16 147/72 H 95
--- NOTE | 2019-06-05 15:30 | Surgery Progress Note ---
Date of Service June 05, 2019 Assessment & Plan (1) Streptococcal infection: Present on Admission?: Yes (2) S/P lung surgery, follow-up exam: Present on Admission?: No (3) Empyema: Patient continues to improve. I am quite pleased with her appearance. She also near liquids better. She really draining very much from her chest tubes. We moved 1 chest tube today and she feels better. She needs to continue to ambulate and to eat. As noted by Dr. Ramirez, the patient will require at least 6 weeks of antibiotics. I thought her x-ray looked better today. Present on Admission?: Yes Subjective Mariely feels "great today". Remains on room air. She looks better than she did yesterday. Physical Exam Physical Exam: She has quite a few chest tube noises on the right but her air leak is smaller than it was yesterday. Chest tube drainage is decreased and she does feel better having one tube out. She is cachectic. Results & Data Vital Signs (Past 12 Hours) Vital Signs Temp Pulse Resp BP Pulse Ox 06/05/19 15:09 36.3 C L 75 16 166/84 H 94 06/05/19 15:05 90 16 95 06/05/19 07:24 112 H 18 90 06/05/19 07:05 36.7 C 80 16 178/79 H 97 PG Care Time/CCT Total # of Minutes Spent Total Time Spent with Patient: Total time spent is greater than 50% in coordination of care (as documented) at patient's floor/unit and/or counseling patient:
[2019-06-05] MEDS: NICOTINE 21 MG/24 HR TDSY TD SCH (21:31)
[2019-06-05] MEDS: QUETIAPINE FUMARATE 25 MG TABLET PO SCH (21:31)
[2019-06-06] MEDS: PIPERACILLIN/TAZOBACTAM 3.375 GM in DEXTROSE 5% 100 ML IV SCH ×3 (02:14→18:55)
[2019-06-06] MEDS: FORMOTEROL 20 MCG/2 ML VIAL NEB SCH ×2 (07:19→19:41)
[2019-06-06] MEDS: IPRATROPIUM BROMIDE NEB SOLN 0.02% 2.5 ML VIAL INH SCH ×3 (07:25→23:35)
[2019-06-06] MEDS: LEVALBUTEROL 1.25MG/0.5ML NEB INH SCH ×3 (07:25→23:35)
--- NOTE | 2019-06-06 07:31 | XRay Report ---
XR chest 1V portable CLINICAL HISTORY: EMPYEMA COMPARISON STUDY: 06/05/2019 FINDINGS: The cardiac and mediastinal contours remain stable. One of the 2 right-sided chest tubes bertrand s been removed. There is interval increase in the size of the basilar pneumothorax which has a pleura l separation of 2 cm. There is evidence for right-sided pleural thickening. Stable consolidative ortiz ges involve the right lung base.[ IMPRESSION: 1. Interval removal of one of the 2 right-sided chest tubes with interval increase in the size of the basilar pneumothorax which currently is a pleural separation of 2 cm 2. Persistent pleural thickening and subpleural right basilar consolidative change. ACT 112: Negative or not required by law. Electronically signed by: Gavino Mcclure M.D. 06/06/2019 7:29 AM
[2019-06-06] MEDS: OXYCODONE HCL IR 5 MG TAB (IMMEDIATE RELEASE) PO PRN ×2 (07:43→15:36)
[2019-06-06 07:47] LABS: Hematocrit (blood only) 31.9 % (37-47); Hemoglobin 10.4 g/dL (12.0-16.0); Mean Corpuscular Hemoglobin 26.8 pg (25-34); Mean Corpuscular Hgb Conc 32.6 g/dL (32-36); Mean Corpuscular Volume 82.2 fL (80-100); Mean Platelet Volume 8.1 fL (7.4-10.4); Platelet Count 763 K/uL (130-400); RDW Coefficient of Variation 16.8 % (11.5-14.5); RDW Standard Deviation 49.3 fL (36.4-46.3); Red Blood Count 3.88 M/uL (4.2-5.4); White Blood Count 28.01 K/uL (4.8-10.8)
[2019-06-06 08:15] LABS: Basophils # (auto) 0.07 K/uL (0-0.2); Basophils % (auto) 0.2 %; Eosinophils # (auto) 0.33 K/uL (0-0.5); Eosinophils % (auto) 1.2 %; Immature Granulocytes # (auto) 1.12 K/uL (0.00-0.02); Lymphocytes # (auto) 4.53 K/uL (1.2-3.4); Lymphocytes % (auto) 16.2 %; Monocytes # (auto) 1.19 K/uL (0.11-0.59); Monocytes % (auto) 4.2 %; Neutrophils # (auto) 20.77 K/uL (1.4-6.5); Neutrophils % (auto) 74.2 %
[2019-06-06 08:16] LABS: Albumin Level 2.3 gm/dl (3.4-5.0); BUN Creatinine Ratio 27.5 (10-20); Calcium 9.9 mg/dl (8.5-10.1); Creatinine Clr Calc Pharmacy 51.3 ml/min; Est GFR (African American) 106.2; Est GFR (Non-African American) 91.7; Potassium 4.2 mmol/L (3.5-5.1)
[2019-06-06 08:18] LABS: Albumin Globulin Ratio 0.4 (0.9-2); Bilirubin,Total 0.2 mg/dl (0.2-1); Globulin 5.7 gm/dl (2.5-4.0)
[2019-06-06] MEDS: LACTOBACILLUS ACIDOPHILUS 1 GM PACK PO SCH ×3 (08:42→18:52)
[2019-06-06] MEDS: UMECLIDINIUM BROMIDE 62.5MCG/BLISTER 7 PUFFS/INHALER INH SCH (08:43)
[2019-06-06] MEDS: MEGESTROL ACETATE SUSP 400 MG/10 ML UDC PO SCH ×2 (08:43→20:21)
[2019-06-06] MEDS: SERTRALINE HCL 100 MG TABLET PO SCH ×2 (08:44→22:07)
[2019-06-06] MEDS: CHOLESTYRAMINE LIGHT 4 GM PKT PO SCH ×2 (10:55→22:03)
--- NOTE | 2019-06-06 11:01 | Pulmonology Progress Note ---
Date of Service June 06, 2019 Assessment & Plan (1) Empyema: Impression: 58-year-old female with advanced obstructive lung disease due to ongoing tobacco abuse admitted with empyema status post decortication. Cultures are growing strep intermedius. She also has significant cachexia Recommendation: 1. Empyema: Continue chest tube management per thoracic surgery. Currently day #6 Zosyn. Would continue Zosyn for now. White count elevated today but no fevers. Would continue to trend closely. Can likely transition to oral Augmentin when ready for discharge. Anticipate the patient will need an additional 2 to 3 weeks of oral antibiotics after leaving the hospital. 2. COPD: Wheezing markedly improved. Continue Spiriva and Perforomist. Continue as needed duo nebs. Can transition to Anoro or Stiolto at discharge. Continue to increase activity as tolerated. She should follow-up with pulmonary clinic with outpatient pulmonary function tests. 3. Tobacco abuse: Patient is doing well off cigarettes. Continue nicotine replacement. 4. We will continue to follow with you (2) COPD (chronic obstructive pulmonary disease): (3) Streptococcal infection: Subjective Patient seen and examined. EMR reviewed. Discussed with thoracic surgery. Patient states that she is doing well clinically. Her pain is decreased. She is ambulating. She is tolerating regular diet. She is not coughing or expectorating significant phlegm. No fevers overnight. Review of Systems Review of Systems: 12 point review of systems completed with the patient is negative except as noted above Physical Exam Constitutional: + cachectic; no acute distress Neck: trachea midline, no thyromegaly Respiratory: normal respiratory effort, lungs clear to auscultation Cardiovascular: RRR, no murmur, no edema Gastrointestinal (Abdomen): normal bowel sounds, soft, nontender, no hepatosplenomegaly Skin: no rashes, warm and dry Results & Data Vital Signs (Past 12 Hours) Vital Signs Temp Pulse Pulse Resp BP Pulse Ox 06/06/19 07:19 96 H 16 98 06/06/19 07:08 36.8 C 79 17 177/96 H 98 06/05/19 23:27 36.9 C 88 16 151/73 H 94 06/05/19 23:04 84 16 96 Laboratory Results 06/06/19 07:28 06/06/19 07:28 Diagnostic Findings Chest x-ray independently reviewed. Small pneumothorax vacuo located at the right lung base. Chest tube in position. No new acute airspace opacities. PG Care Time/CCT Total # of Minutes Spent Total Time Spent with Patient: Total time spent is greater than 50% in coordination of care (as documented) at patient's floor/unit and/or counseling patient:
[2019-06-06] MEDS: ENOXAPARIN INJ 30 MG/0.3 ML SYR SQ SCH (11:45)
--- NOTE | 2019-06-06 13:34 | Progress Note ---
DATE: 06/06/2019 The patient was seen today. She looks great. She wants her chest tube out and would like to go home. I have explained that she still has an air leak, so she will have to be kept in the hospital for the time being. She is on room air with excellent saturations. She is moving air well upon auscultation. Her incisions are clean. White count remains elevated at 28,000. Hemoglobin stable at 10.4. Her x-ray looked very good. ASSESSMENT AND PLAN: Postoperative day #5 status post extensive decortication. She appears to be settling down from this. We will continue our current therapy. Her air leak is much smaller. Her drainage from her chest tube is quite low. We will see how she looks in the next few days and hopeful that her chest tube will stop draining and her lung will expand.
[2019-06-06] MEDS: ONDANSETRON INJ 2 MG/ML 2 ML VIAL IV PRN (19:06)
[2019-06-06] MEDS: QUETIAPINE FUMARATE 25 MG TABLET PO SCH (20:21)
[2019-06-06] MEDS: NICOTINE 21 MG/24 HR TDSY TD SCH (20:23)
[2019-06-06] MEDS: MoRPHine SULFATE 2 MG/ML CARP IV PRN (20:32)
[2019-06-06] MEDS ORDERED: CALCIUM CARBONATE 500 MG CHEWABLE TAB PO PRN (23:09)
[2019-06-06] MEDS ORDERED: FAMOTIDINE 20 MG in SYRINGE 3 ML IV STA (23:09)
[2019-06-07] MEDS: CHOLESTYRAMINE LIGHT 4 GM PKT PO SCH ×3 (00:42→21:01)
[2019-06-07] MEDS: ONDANSETRON INJ 2 MG/ML 2 ML VIAL IV PRN (00:50)
[2019-06-07] MEDS: MoRPHine SULFATE 2 MG/ML CARP IV PRN (01:48)
[2019-06-07] MEDS: PIPERACILLIN/TAZOBACTAM 3.375 GM in DEXTROSE 5% 100 ML IV SCH ×3 (01:48→17:06)
--- NOTE | 2019-06-07 05:58 | Hospitalist Progress Note ---
Date of Service June 06, 2019 Assessment & Plan (1) Pneumonia: Chest x-ray at time of admission showed RLL infiltrate + pleural effusion (empyema as discussed below). Pleural fluid from VATS grew Strep intermedius. Continue IV piperacillin / tazobactam with transition to oral antibiotic therapy at time of discharge. (2) Empyema of right pleural space: US in clinic demonstrated complicated pleural effusion. VATS with decortication performed by Dr. Gilliland 06/01. Culture grew Strep intermedius. Chest tube management per Thoracic Surgery. Continue IV piperacillin / tazobactam with transition to oral antibiotic therapy at time of discharge. (3) COPD (chronic obstructive pulmonary disease): Pulmonary status stable. Continue nebs. (4) Tobacco abuse: Smoking cessation counseling. (5) Protein calorie malnutrition: Cachectic. Low BMI. 10-15 lb wt loss. Seen in consultation by Nutrition. Continue dietary supplements. (6) DVT prophylaxis: SQ enoxaparin. Ambulate. (7) Discharge planning issues: Anticipated discharge to home. Medical follow-up with Dr. Nova. Subjective Recheck for multiple problems. Patient seen in their room around 1640. Feels better. Has some discomfort from chest tube. Minimal cough. No shortness of breath. No fever. Review of Systems: Constitutional- no fever. Cardiac- no chest pain. Pulmonary- as noted above. GI- no nausea, vomiting, diarrhea, melena, hematochezia. - no urinary symptoms. Otherwise, as noted above. Physical Exam Constitutional: no acute distress Eyes: + anicteric sclerae Respiratory: no respiratory distress Auscultation: + rales (right base) Cardiovascular: Rate/Rhythm: regular rate and regular rhythm Heart Sounds: no gallop Vessels: no JVD Extremities: no calf tenderness and no edema Chest (Breasts): Additional Comments: right chest tube Gastrointestinal (Abdomen): normal bowel sounds, soft, nontender, no hepatosplenomegaly Skin: no rashes, warm and dry Psychiatric: Orientation: alert and oriented x 3 Results & Data Vital Signs (Past 12 Hours) Vital signs at 0708-temp 36.8, pulse 79, respirations 17, blood pressure 177/96. Laboratory Results 06/06/19 07:28 06/06/19 07:28
[2019-06-07 07:33] LABS: Hemoglobin 9.6 g/dL (12.0-16.0); Mean Corpuscular Hemoglobin 26.7 pg (25-34); Mean Corpuscular Volume 83.3 fL (80-100); Mean Platelet Volume 8.1 fL (7.4-10.4); Nucleated RBC # (auto) 0.02 K/uL (0-0); Nucleated RBC % (auto) 0.1 %; Platelet Count 748 K/uL (130-400); RDW Coefficient of Variation 17.2 % (11.5-14.5); RDW Standard Deviation 50.4 fL (36.4-46.3); White Blood Count 31.22 K/uL (4.8-10.8)
[2019-06-07] MEDS: LEVALBUTEROL 1.25MG/0.5ML NEB INH SCH ×3 (07:34→23:46)
[2019-06-07] MEDS: FORMOTEROL 20 MCG/2 ML VIAL NEB SCH ×2 (07:34→19:24)
[2019-06-07] MEDS: IPRATROPIUM BROMIDE NEB SOLN 0.02% 2.5 ML VIAL INH SCH ×3 (07:34→23:46)
[2019-06-07 07:43] LABS: Basophils # (auto) 0.13 K/uL (0-0.2); Basophils % (auto) 0.4 %; Eosinophils # (auto) 0.32 K/uL (0-0.5); Immature Granulocytes # (auto) 1.34 K/uL (0.00-0.02); Immature Granulocytes % (auto) 4.3 %; Lymphocytes # (auto) 4.57 K/uL (1.2-3.4); Lymphocytes % (auto) 14.6 %; Monocytes # (auto) 1.56 K/uL (0.11-0.59); Neutrophils % (auto) 74.7 %
[2019-06-07 07:44] LABS: BUN Creatinine Ratio 37.3 (10-20); Calcium 8.9 mg/dl (8.5-10.1); Creatinine Clr Calc Pharmacy 53.5 ml/min; Est GFR (African American) 110.4; Est GFR (Non-African American) 95.3; Potassium 3.7 mmol/L (3.5-5.1)
[2019-06-07] MEDS: LACTOBACILLUS ACIDOPHILUS 1 GM PACK PO SCH ×3 (07:57→16:35)
[2019-06-07] MEDS: ENOXAPARIN INJ 30 MG/0.3 ML SYR SQ SCH (07:57)
[2019-06-07] MEDS: SERTRALINE HCL 100 MG TABLET PO SCH ×2 (07:57→21:34)
[2019-06-07] MEDS: OXYCODONE HCL IR 5 MG TAB (IMMEDIATE RELEASE) PO PRN ×3 (07:57→22:48)
[2019-06-07] MEDS: MEGESTROL ACETATE SUSP 400 MG/10 ML UDC PO SCH ×2 (07:58→21:00)
[2019-06-07] MEDS: UMECLIDINIUM BROMIDE 62.5MCG/BLISTER 7 PUFFS/INHALER INH SCH (08:02)
--- NOTE | 2019-06-07 08:06 | XRay Report ---
XR chest 1V portable HISTORY: empyema COMPARISON: Chest 06/06/2019 FINDINGS: There is a single right-sided chest tube remaining which is unchanged in position. This ter minates within the right lateral mid pleural space. A small right hydropneumothorax has decreased in size. This demonstrates a maximal pleural gap of 6 mm laterally. Right basilar densities persist. The left lung is clear. The heart remains borderline enlarged. Posterior fusion hardware within the lumb ar spine is again noted. IMPRESSION: Decrease in size in the small right hydropneumothorax. The right sided chest tube remains unchanged i n position. ACT 112: Negative or not required by law. Electronically signed by: Ludwig Olivas M.D. 06/07/2019 8:05 AM
--- NOTE | 2019-06-07 10:51 | Pulmonology Progress Note ---
Date of Service June 07, 2019 Assessment & Plan (1) Empyema: Impression: 58-year-old female with advanced obstructive lung disease due to ongoing tobacco abuse admitted with empyema status post decortication. Cultures are growing strep intermedius. She also has significant cachexia Recommendation: 1. Empyema: Continue chest tube management per thoracic surgery. Currently day #7 Zosyn. Would continue Zosyn for now. White count continues to climb but patient appears clinically stable without fevers. Would continue to trend closely. Unclear if this is just a leukemoid reaction secondary to the patient's infection being adequately treated or if this may represent alternative pathology. She does not have localizing symptoms currently. Can likely transition to oral Augmentin when ready for discharge. Anticipate the patient will need an additional 2 to 3 weeks of oral antibiotics after leaving the hospital. 2. COPD: Wheezing markedly improved. Continue Spiriva and Perforomist. Continue as needed duo nebs. Can transition to Anoro or Stiolto at discharge. Continue to increase activity as tolerated. She should follow-up with pulmonary clinic with outpatient pulmonary function tests. 3. Tobacco abuse: Patient is doing well off cigarettes. Continue nicotine replacement. 4. We will continue to follow with you (2) COPD (chronic obstructive pulmonary disease): (3) Streptococcal infection: Subjective Patient seen and examined. EMR reviewed. Overall she feels well. She is not having any significant pain. She reports her breathing is better. She is ambulating with a chest tube in place. She is tolerating a diet but is not gained any significant weight. She continues on antibiotics. Review of Systems Review of Systems: 12 point review of systems completed with the patient is negative except as noted above Physical Exam Constitutional: + cachectic; no acute distress Neck: trachea midline, no thyromegaly Respiratory: normal respiratory effort, lungs clear to auscultation Cardiovascular: RRR, no murmur, no edema Gastrointestinal (Abdomen): normal bowel sounds, soft, nontender, no hepatosplenomegaly Skin: no rashes, warm and dry Results & Data Vital Signs (Past 12 Hours) Vital Signs Temp Pulse Pulse Resp BP Pulse Ox 06/07/19 07:34 85 18 97 06/07/19 07:16 36.6 C 90 15 152/85 H 95 06/07/19 01:33 36.8 C 84 18 167/79 H 97 06/06/19 23:35 91 H 16 96 06/06/19 23:09 36.9 C 92 H 16 155/77 H 96 Laboratory Results 06/07/19 06:59 06/07/19 06:59 Diagnostic Findings Chest x-ray from today was independently reviewed. Left lung is well aerated. Some volume loss in the right lung with chest tube in place. A small pneumo ex vacuo again noted although this appears decreased in size. PG Care Time/CCT Total # of Minutes Spent Total Time Spent with Patient: Total time spent is greater than 50% in coordination of care (as documented) at patient's floor/unit and/or counseling patient:
--- NOTE | 2019-06-07 11:56 | Progress Note ---
DATE: 06/07/2019 Ms. March looks quite good today. Saturations 97% on room air. She looks good. She has been eating well. The Megace has really helped her appetite. Her white count however is up to 31,220, but I do not think this is coming from her chest. Her chest tube shows that she still has a leak; however, her pneumothorax is smaller. She still has an air leak which is actually still sizable although it is improving. Nutrition is extremely important in this regard. Otherwise, I think Mariely looks great. We will continue our current therapy. She is now 6 days status post her decortication and evacuation of her empyema.
--- NOTE | 2019-06-07 21:22 | Hospitalist Progress Note ---
Date of Service June 07, 2019 Assessment & Plan (1) Pneumonia: Chest x-ray at time of admission showed RLL infiltrate + pleural effusion (empyema as discussed below). Pleural fluid from VATS grew Strep intermedius. Persistent leukocytosis, but doing well clinically. Continue IV piperacillin / tazobactam with transition to oral antibiotic therapy at time of discharge. (2) Empyema of right pleural space: US in clinic demonstrated complicated pleural effusion. VATS with decortication performed by Dr. Gilliland 06/01. Culture grew Strep intermedius. Chest tube management per Thoracic Surgery. Continue IV piperacillin / tazobactam with transition to oral antibiotic therapy at time of discharge. (3) COPD (chronic obstructive pulmonary disease): Pulmonary status stable. Continue nebs. (4) Tobacco abuse: Smoking cessation counseling. (5) Protein calorie malnutrition: Cachectic. Low BMI. 10-15 lb wt loss. Seen in consultation by Nutrition. Continue dietary supplements. (6) DVT prophylaxis: SQ enoxaparin. Ambulate. (7) Discharge planning issues: Anticipated discharge to home. Medical follow-up with Dr. Nova. Subjective Recheck for multiple problems. Patient seen in their room around 0920. Minimal cough. No shortness of breath. No fever. Mild discomfort from chest tube. Ambulating with walker. Review of Systems: Constitutional- no fever. Cardiac- no chest pain. Pulmonary- as noted above. GI- no nausea, vomiting, diarrhea, melena, hematochezia. - no urinary symptoms. Otherwise, as noted above. Physical Exam Constitutional: no acute distress Eyes: + anicteric sclerae Respiratory: no respiratory distress Auscultation: + rales (right base) Cardiovascular: Rate/Rhythm: regular rate and regular rhythm Heart Sounds: no gallop Vessels: no JVD Extremities: no calf tenderness and no edema Chest (Breasts): Additional Comments: right chest tube Gastrointestinal (Abdomen): normal bowel sounds, soft, nontender, no hepatosplenomegaly Skin: no rashes, warm and dry Psychiatric: Orientation: alert and oriented x 3 Results & Data Vital Signs (Past 12 Hours) Vital Signs Temp Pulse Resp BP Pulse Ox 06/07/19 19:24 71 16 97 06/07/19 16:05 36.7 C 91 H 16 169/83 H 96 06/07/19 15:26 91 H 16 96 06/07/19 12:14 36.8 C 86 15 183/91 H 96 Laboratory Results 06/07/19 06:59 06/07/19 06:59 Diagnostic Findings PORT CHEST X-RAY FINDINGS: There is a single right-sided chest tube remaining which is unchanged in position. This terminates within the right lateral mid pleural space. A small right hydropneumothorax has decreased in size. This demonstrates a maximal pleural gap of 6 mm laterally. Right basilar densities persist. The left lung is clear. The heart remains borderline enlarged. Posterior fusion hardware within the lumbar spine is again noted. IMPRESSION: Decrease in size in the small right hydropneumothorax. The right sided chest tub e remains unchanged in position. ACT 112: Negative or not required by law. Electronically signed by: Ludwig Olivas M.D. 06/07/2019 8:05 AM
[2019-06-07] MEDS: QUETIAPINE FUMARATE 25 MG TABLET PO SCH (21:35)
[2019-06-07] MEDS: NICOTINE 21 MG/24 HR TDSY TD SCH (21:35)
[2019-06-08] MEDS: PIPERACILLIN/TAZOBACTAM 3.375 GM in DEXTROSE 5% 100 ML IV SCH ×3 (01:13→18:08)
[2019-06-08 05:26] LABS: Hematocrit (blood only) 28.4 % (37-47); Hemoglobin 9.1 g/dL (12.0-16.0); Mean Corpuscular Hemoglobin 26.8 pg (25-34); Mean Corpuscular Volume 83.5 fL (80-100); Mean Platelet Volume 8.1 fL (7.4-10.4); Platelet Count 772 K/uL (130-400); RDW Coefficient of Variation 17.8 % (11.5-14.5); RDW Standard Deviation 50.6 fL (36.4-46.3); White Blood Count 26.44 K/uL (4.8-10.8)
[2019-06-08 05:45] LABS: BUN Creatinine Ratio 40.1 (10-20); Calcium 8.6 mg/dl (8.5-10.1); Creatinine Clr Calc Pharmacy 58.6 ml/min; Est GFR (African American) 113.8; Est GFR (Non-African American) 98.2; Potassium 3.4 mmol/L (3.5-5.1)
[2019-06-08] MEDS: LEVALBUTEROL 1.25MG/0.5ML NEB INH SCH ×3 (07:07→23:24)
[2019-06-08] MEDS: FORMOTEROL 20 MCG/2 ML VIAL NEB SCH ×2 (07:07→18:59)
[2019-06-08] MEDS: IPRATROPIUM BROMIDE NEB SOLN 0.02% 2.5 ML VIAL INH SCH ×3 (07:07→23:24)
--- NOTE | 2019-06-08 07:25 | XRay Report ---
XR chest 1V portable HISTORY: 58 years-old Female empyema COMPARISON: Chest radiograph 06/07/2019 TECHNIQUE: Portable AP view of the chest FINDINGS: Cardiomediastinal and hilar silhouettes are within normal limits. Left lung is clear. Stable position ing of the right-sided chest tube with unchanged size of the small right hydropneumothorax, maximal p leural separation at the lateral right lung base measuring 6 mm. Mild lateral right midlung and right lung base opacities redemonstrated suggestive of probable atelectasis. Fusion hardware of the lumbar spine redemonstrated. Degenerative changes of the shoulders and spine. IMPRESSION: Stable positioning of the right-sided chest tube with unchanged small right hydropneumoth orax. ACT 112: Negative or not required by law. The above report was generated using voice recognition software. It may contain grammatical, syntax o r spelling errors. Electronically signed by: Graham Gutierrez M.D. 06/08/2019 7:23 AM
[2019-06-08] MEDS: OXYCODONE HCL IR 5 MG TAB (IMMEDIATE RELEASE) PO PRN ×3 (07:32→21:23)
[2019-06-08] MEDS: SERTRALINE HCL 100 MG TABLET PO SCH ×2 (07:33→21:24)
[2019-06-08] MEDS: MEGESTROL ACETATE SUSP 400 MG/10 ML UDC PO SCH ×2 (07:33→21:24)
[2019-06-08] MEDS: ENOXAPARIN INJ 30 MG/0.3 ML SYR SQ SCH (07:34)
[2019-06-08] MEDS: UMECLIDINIUM BROMIDE 62.5MCG/BLISTER 7 PUFFS/INHALER INH SCH (07:34)
[2019-06-08] MEDS: LACTOBACILLUS ACIDOPHILUS 1 GM PACK PO SCH ×3 (07:37→16:41)
--- NOTE | 2019-06-08 08:30 | Surgery Progress Note ---
Date of Service June 08, 2019 Assessment & Plan (1) Empyema: -s/p RVATS with decortication -surgical pathology (-) for malignancy -culture grew Strep intermedius -continue abx. in the [facility] -CXR today shows small right hydropneumothorax -CT has no air leak with minimal drainage -keep CT in place for now -continue ambulation -lovenox in place for DVT prevention Subjective Pt. feels well. No SOB. No fevers, shakes, chills. She is eating well and has been ambulating in hallway. Physical Exam Constitutional: + thin; no acute distress Respiratory: normal respiratory effort; no respiratory distress and no labored breathing only slight decrease of BS note michelle bases Cardiovascular: Rate/Rhythm: regular rate and regular rhythm Psychiatric: A+Ox3, euthymic affect Results & Data Vital Signs (Past 12 Hours) Vital Signs Temp Pulse Resp BP BP Pulse Ox 06/08/19 07:15 37.0 C 88 16 163/81 H 97 06/08/19 07:08 86 16 96 06/07/19 23:48 90 18 96 06/07/19 23:12 37.0 C 94 H 16 138/73 96 PG Care Time/CCT Total # of Minutes Spent Total Time Spent with Patient: Total time spent is greater than 50% in coordination of care (as documented) at patient's floor/unit and/or counseling patient: Coding Level of Care Code None Diagnoses Empyema J86.9
[2019-06-08] MEDS: CHOLESTYRAMINE LIGHT 4 GM PKT PO SCH ×2 (09:35→21:24)
--- NOTE | 2019-06-08 12:52 | Pulmonology Progress Note ---
Date of Service June 08, 2019 Assessment & Plan (1) Empyema: Impression: 58-year-old female with advanced obstructive lung disease due to ongoing tobacco abuse admitted with empyema status post decortication. Cultures are growing strep intermedius. She also has significant cachexia Recommendation: 1. Empyema: Continue chest tube management per thoracic surgery. Currently day #8 Zosyn. Would continue Zosyn for now. White count decreasing today and the patient appears clinically better without fevers. Can likely transition to oral Augmentin when ready for discharge. Anticipate the patient will need an additional 2 to 3 weeks of oral antibiotics after leaving the hospital. 2. COPD: Wheezing markedly improved. Continue Spiriva and Perforomist. Continue as needed duo nebs. Can transition to Anoro or Stiolto at discharge. Continue to increase activity as tolerated. She should follow-up with pulmonary clinic with outpatient pulmonary function tests. 3. Tobacco abuse: Patient is doing well off cigarettes. Continue nicotine replacement. Can be discharged when chest tube is out per thoracic surgery. I would be happy to see her back in the pulmonary clinic. Will sign off at this point in time. Please call if we can be of additional assistance (2) COPD (chronic obstructive pulmonary disease): (3) Streptococcal infection: Review of Systems Review of Systems: 12 point review of systems completed with the patient is negative except as noted above Physical Exam Constitutional: + cachectic; no acute distress Neck: trachea midline, no thyromegaly Respiratory: normal respiratory effort, lungs clear to auscultation Cardiovascular: RRR, no murmur, no edema Gastrointestinal (Abdomen): normal bowel sounds, soft, nontender, no hepatosplenomegaly Skin: no rashes, warm and dry Results & Data Vital Signs (Past 12 Hours) Vital Signs Temp Pulse Resp BP Pulse Ox 06/08/19 07:15 37.0 C 88 16 163/81 H 97 06/08/19 07:08 86 16 96 Laboratory Results 06/08/19 04:29 06/08/19 04:29 Diagnostic Findings Chest x-ray from today was independently reviewed. Left lung is well aerated. Right lung shows some residual pneumothorax vacuo at the right lung base. Chest tube remains in place PG Care Time/CCT Total # of Minutes Spent Total Time Spent with Patient: Total time spent is greater than 50% in coordination of care (as documented) at patient's floor/unit and/or counseling patient: Coding Level of Care Code 47255 Subseq Hosp Care Lvl 2 Diagnoses Empyema J86.9 COPD (chronic obstructive pulmonary disease) J44.9 Streptococcal infection A49.1
--- NOTE | 2019-06-08 20:51 | Hospitalist Progress Note ---
Date of Service June 08, 2019 Assessment & Plan (1) Pneumonia: Chest x-ray at time of admission showed RLL infiltrate + pleural effusion (empyema as discussed below). Pleural fluid from VATS grew Strep intermedius. Persistent leukocytosis, but doing well clinically. Continue IV piperacillin / tazobactam with transition to oral antibiotic therapy at time of discharge. (2) Empyema of right pleural space: US in clinic demonstrated complicated pleural effusion. VATS with decortication performed by Dr. Gilliland 06/01. Culture grew Strep intermedius. Chest tube management per Thoracic Surgery. Continue IV piperacillin / tazobactam with transition to oral antibiotic therapy at time of discharge. (3) COPD (chronic obstructive pulmonary disease): Pulmonary status stable. Continue nebs. (4) Tobacco abuse: Smoking cessation counseling. (5) Protein calorie malnutrition: Cachectic. Low BMI. 10-15 lb wt loss. Seen in consultation by Nutrition. Continue dietary supplements. (6) Hypokalemia: Serum K 3.4. Follow. (7) DVT prophylaxis: SQ enoxaparin. Ambulate. (8) Discharge planning issues: Anticipated discharge to home. Medical follow-up with Dr. Nova. Subjective Recheck for multiple problems. Patient seen in their room around 1400. Doing well. Minimal cough. No shortness of breath. No fever. Ambulating with walker. Persistent chest tube leak. Review of Systems: Constitutional- no fever. Cardiac- no chest pain. Pulmonary- as noted above. GI- no nausea, vomiting, diarrhea, melena, hematochezia. - no urinary symptoms. Otherwise, as noted above. Physical Exam Constitutional: no acute distress Eyes: + anicteric sclerae Respiratory: no respiratory distress Auscultation: + rales (right base) Cardiovascular: Rate/Rhythm: regular rate and regular rhythm Heart Sounds: no gallop Vessels: no JVD Extremities: no calf tenderness and no edema Gastrointestinal (Abdomen): normal bowel sounds, soft, nontender, no hepatosplenomegaly Skin: no rashes, warm and dry Psychiatric: Orientation: alert and oriented x 3 Results & Data Vital Signs (Past 12 Hours) Vital Signs Temp Pulse Pulse Resp BP Pulse Ox 06/08/19 18:59 72 16 98 06/08/19 15:48 36.9 C 101 H 16 175/85 H 94 06/08/19 15:30 100 H 16 98 06/08/19 13:32 37.0 C 85 16 160/75 H 98 Laboratory Results 06/08/19 04:29 06/08/19 04:29
[2019-06-08] MEDS: QUETIAPINE FUMARATE 25 MG TABLET PO SCH (21:24)
[2019-06-08] MEDS: NICOTINE 21 MG/24 HR TDSY TD SCH (21:25)
[2019-06-09] MEDS: PIPERACILLIN/TAZOBACTAM 3.375 GM in DEXTROSE 5% 100 ML IV SCH ×3 (01:48→17:00)
[2019-06-09] MEDS: OXYCODONE HCL IR 5 MG TAB (IMMEDIATE RELEASE) PO PRN ×3 (06:19→18:13)
[2019-06-09 06:36] LABS: Hematocrit (blood only) 27.8 % (37-47); Hemoglobin 8.9 g/dL (12.0-16.0); Mean Corpuscular Hemoglobin 27.1 pg (25-34); Mean Corpuscular Volume 84.5 fL (80-100); Mean Platelet Volume 8.3 fL (7.4-10.4); Platelet Count 769 K/uL (130-400); RDW Coefficient of Variation 18.4 % (11.5-14.5); RDW Standard Deviation 52.1 fL (36.4-46.3); Red Blood Count 3.29 M/uL (4.2-5.4); White Blood Count 22.55 K/uL (4.8-10.8)
[2019-06-09] MEDS: FORMOTEROL 20 MCG/2 ML VIAL NEB SCH ×2 (07:05→19:42)
[2019-06-09] MEDS: IPRATROPIUM BROMIDE NEB SOLN 0.02% 2.5 ML VIAL INH SCH ×3 (07:08→23:04)
[2019-06-09] MEDS: LEVALBUTEROL 1.25MG/0.5ML NEB INH SCH ×3 (07:08→23:04)
[2019-06-09 07:10] LABS: BUN Creatinine Ratio 39.2 (10-20); Calcium 8.5 mg/dl (8.5-10.1); Creatinine Clr Calc Pharmacy 61.5 ml/min; Est GFR (African American) 115.6; Est GFR (Non-African American) 99.8; Potassium 3.5 mmol/L (3.5-5.1)
[2019-06-09] MEDS: LACTOBACILLUS ACIDOPHILUS 1 GM PACK PO SCH ×3 (08:45→16:53)
[2019-06-09] MEDS: ENOXAPARIN INJ 30 MG/0.3 ML SYR SQ SCH (08:46)
[2019-06-09] MEDS: UMECLIDINIUM BROMIDE 62.5MCG/BLISTER 7 PUFFS/INHALER INH SCH (08:46)
[2019-06-09] MEDS: MEGESTROL ACETATE SUSP 400 MG/10 ML UDC PO SCH ×2 (08:47→20:58)
[2019-06-09] MEDS: SERTRALINE HCL 100 MG TABLET PO SCH ×2 (08:47→20:59)
[2019-06-09] MEDS: CHOLESTYRAMINE LIGHT 4 GM PKT PO SCH ×2 (08:49→21:00)
--- NOTE | 2019-06-09 09:07 | XRay Report ---
SINGLE VIEW CHEST CLINICAL HISTORY: Empyema. FINDINGS: An AP, portable, upright chest radiograph is compared to study dated 06/08/2019 and correlat ed with chest CT dated 08/14/2018. The examination is degraded by portable technique and patient rotati on. The heart is enlarged noting atherosclerotic calcification of the thoracic aorta. The pulmonary v asculature is noncongested. Emphysema and chronic interstitial thickening are similar to previous. A right-sided chest tube is unchanged in position. A right basilar pneumothorax has increased in size f rom yesterday. There is now 1.3 cm of pleural separation. There is only trace pleural fluid seen at t he right lung base. This is decreased from yesterday. There is right basilar scarring/atelectasis. Th e left lung appears clear. The skeletal structures are osteopenic. The bony thorax is grossly intact. Fusion hardware is noted in the upper lumbar spine. IMPRESSION: 1. Cardiomegaly and emphysema. 2. A right-sided chest tube is unchanged in position. A right basilar pneumothorax has modestly incre ased in size from yesterday. 3. There is only trace residual pleural fluid seen at the right lung base. This has decreased from ye . ACT 112: Negative or not required by law. Electronically signed by: Sachin Newman M.D. 06/09/2019 9:06 AM
--- NOTE | 2019-06-09 11:27 | Progress Note ---
DATE: 06/09/2019 Ms. March was seen today. She looks great. She is eating very well. She is making good urine. She is ambulating in the hallway. She is on room air. Her problem is she still has an air leak, although it is getting smaller. I have told her that she needs to be patience with this. Her x-ray shows that she has a small pneumothorax; however, I believe that this is going to resolve when her air leak resolves. We will continue our current therapy. I am quite pleased with how much she is eating with the medications.
--- NOTE | 2019-06-09 16:23 | Hospitalist Progress Note ---
Date of Service June 09, 2019 Assessment & Plan (1) Pneumonia: Chest x-ray at time of admission showed RLL infiltrate + pleural effusion (empyema as discussed below). Pleural fluid from VATS grew Strep intermedius. Persistent leukocytosis, but doing well clinically. WBC 23,950 day of admission --> 31,220 06/07, --> 22,550 today. Continue IV piperacillin / tazobactam with transition to oral antibiotic therapy at time of discharge. (2) Empyema of right pleural space: US in clinic demonstrated complicated pleural effusion. VATS with decortication performed by Dr. Gilliland 06/01. Culture grew Strep intermedius. Chest tube management per Thoracic Surgery. Continue IV piperacillin / tazobactam with transition to oral antibiotic therapy at time of discharge. (3) COPD (chronic obstructive pulmonary disease): Pulmonary status stable. Continue nebs. (4) Tobacco abuse: Smoking cessation counseling. (5) Protein calorie malnutrition: Cachectic. Low BMI. 10-15 lb wt loss. Seen in consultation by Nutrition. Continue dietary supplements. (6) Hypokalemia: Serum K as low as 2.5. Replaced. K today = 3.5. Follow. (7) DVT prophylaxis: SQ enoxaparin. Ambulate. (8) Discharge planning issues: Anticipated discharge to home. Medical follow-up with Dr. Nova. Subjective Recheck for multiple problems. Patient seen in their room around 0930. Doing well, but a bit despondent. Minimal cough. No shortness of breath. No fever. Persistent chest tube leak. Review of Systems: Constitutional- no fever. Cardiac- no chest pain. Pulmonary- as noted above. GI- no nausea, vomiting, diarrhea, melena, hematochezia. - no urinary symptoms. Otherwise, as noted above. Physical Exam Constitutional: no acute distress Eyes: + anicteric sclerae Respiratory: no respiratory distress Auscultation: + rales (right base) Cardiovascular: Rate/Rhythm: regular rate and regular rhythm Heart Sounds: no gallop Vessels: no JVD Extremities: no calf tenderness and no edema Gastrointestinal (Abdomen): normal bowel sounds, soft, nontender, no hepatosplenomegaly Skin: no rashes, warm and dry Psychiatric: Orientation: alert and oriented x 3 Results & Data Vital Signs (Past 12 Hours) Vital Signs Temp Pulse Pulse Resp BP Pulse Ox 06/09/19 15:39 90 16 97 06/09/19 15:03 36.6 C 96 H 16 170/81 H 98 06/09/19 07:08 80 16 97 06/09/19 07:02 36.7 C 79 14 153/81 H 96 Laboratory Results 06/09/19 04:58 06/09/19 04:58
[2019-06-09] MEDS: QUETIAPINE FUMARATE 25 MG TABLET PO SCH (20:59)
[2019-06-09] MEDS: NICOTINE 21 MG/24 HR TDSY TD SCH (21:00)
[2019-06-10] MEDS: OXYCODONE HCL IR 5 MG TAB (IMMEDIATE RELEASE) PO PRN ×4 (00:32→21:49)
[2019-06-10] MEDS: PIPERACILLIN/TAZOBACTAM 3.375 GM in DEXTROSE 5% 100 ML IV SCH ×3 (02:23→17:57)
[2019-06-10 05:25] LABS: Hematocrit (blood only) 28.2 % (37-47); Mean Corpuscular Hemoglobin 26.9 pg (25-34); Mean Corpuscular Hgb Conc 31.9 g/dL (32-36); Mean Corpuscular Volume 84.4 fL (80-100); Mean Platelet Volume 8.4 fL (7.4-10.4); Platelet Count 754 K/uL (130-400); RDW Coefficient of Variation 19.1 % (11.5-14.5); RDW Standard Deviation 52.5 fL (36.4-46.3); Red Blood Count 3.34 M/uL (4.2-5.4)
[2019-06-10 05:54] LABS: BUN Creatinine Ratio 41.6 (10-20); Calcium 8.4 mg/dl (8.5-10.1); Creatinine Clr Calc Pharmacy 64.8 ml/min; Est GFR (African American) 117.6; Est GFR (Non-African American) 101.5; Potassium 3.4 mmol/L (3.5-5.1)
[2019-06-10] MEDS: IPRATROPIUM BROMIDE NEB SOLN 0.02% 2.5 ML VIAL INH SCH ×2 (07:05→15:21)
[2019-06-10] MEDS: FORMOTEROL 20 MCG/2 ML VIAL NEB SCH ×2 (07:05→19:32)
[2019-06-10] MEDS: LEVALBUTEROL 1.25MG/0.5ML NEB INH SCH ×2 (07:05→15:21)
--- NOTE | 2019-06-10 07:19 | XRay Report ---
XR chest 1V portable HISTORY: 58 years-old Female empyema follow-up study in a patient with empyema COMPARISON: Chest radiograph 06/09/2019 TECHNIQUE: Portable AP view of the chest FINDINGS: Cardiac silhouette is enlarged, unchanged. Calcified plaque of the thoracic aortic arch. Unchanged po sitioning of the right-sided chest tube. Right basilar pneumothorax, pleural separation of 1.1 cm pre viously measured 1.3 cm. Minimal residual fluid of the right lung base with unchanged mild right lung base opacities. Suggested emphysema. No pneumothorax. The left lung is clear. Degenerative changes o f the shoulders and spine. Fusion hardware with discectomy changes at L2-L3. IMPRESSION: Stable positioning of the right-sided chest tube with unchanged small right hydropneumoth orax. ACT 112: Negative or not required by law. The above report was generated using voice recognition software. It may contain grammatical, syntax o r spelling errors. Electronically signed by: Graham Gutierrez M.D. 06/10/2019 7:18 AM
[2019-06-10] MEDS: LACTOBACILLUS ACIDOPHILUS 1 GM PACK PO SCH ×3 (08:55→18:01)
[2019-06-10] MEDS: UMECLIDINIUM BROMIDE 62.5MCG/BLISTER 7 PUFFS/INHALER INH SCH (08:55)
[2019-06-10] MEDS: ENOXAPARIN INJ 30 MG/0.3 ML SYR SQ SCH (08:56)
[2019-06-10] MEDS: MEGESTROL ACETATE SUSP 400 MG/10 ML UDC PO SCH ×2 (08:57→21:44)
[2019-06-10] MEDS: SERTRALINE HCL 100 MG TABLET PO SCH ×2 (08:57→21:44)
[2019-06-10] MEDS: POTASSIUM CHLORIDE 10 MEQ TABCR PO SCH ×3 (08:57→21:43)
[2019-06-10] MEDS: CHOLESTYRAMINE LIGHT 4 GM PKT PO SCH ×3 (10:14→21:46)
--- NOTE | 2019-06-10 17:08 | Hospitalist Progress Note ---
Date of Service June 10, 2019 Assessment & Plan (1) Pneumonia: Chest x-ray at time of admission showed RLL infiltrate + pleural effusion (empyema as discussed below). Pleural fluid from VATS grew Strep intermedius. Persistent leukocytosis, but doing well clinically. WBC 23,950 day of admission --> 31,220 06/07, --> 20,700 today. Continue IV piperacillin / tazobactam with transition to oral antibiotic therapy at time of discharge. (2) Empyema of right pleural space: US in clinic demonstrated complicated pleural effusion. VATS with decortication performed by Dr. Gilliland 06/01. Culture grew Strep intermedius. Chest tube management per Thoracic Surgery. Continue IV piperacillin / tazobactam with transition to oral antibiotic therapy at time of discharge. (3) COPD (chronic obstructive pulmonary disease): Pulmonary status stable. Continue nebs. (4) Tobacco abuse: Smoking cessation counseling. (5) Protein calorie malnutrition: Cachectic. Low BMI. 10-15 lb wt loss. Seen in consultation by Nutrition. Continue dietary supplements. (6) Hypokalemia: Serum K as low as 2.5. Replaced. K today = 3.4. Follow. (7) DVT prophylaxis: SQ enoxaparin. Ambulate. (8) Discharge planning issues: Anticipated discharge to home. Medical follow-up with Dr. Nova. Subjective Recheck for multiple problems. Patient seen in their room around 1140. visiting. Minimal cough. No shortness of breath. No fever. Ambulating. Review of Systems: Constitutional- no fever. Cardiac- no chest pain. Pulmonary- as noted above. GI- no nausea, vomiting, diarrhea, melena, hematochezia. - no urinary symptoms. Otherwise, as noted above. Physical Exam Constitutional: no acute distress Eyes: + anicteric sclerae Respiratory: no respiratory distress Auscultation: + rales (right base) Cardiovascular: Rate/Rhythm: regular rate and regular rhythm Heart Sounds: no gallop Vessels: no JVD Extremities: no calf tenderness and no edema Chest (Breasts): Chest: + abnormal inspection of chest (right chest tube, no apparent leak) Gastrointestinal (Abdomen): normal bowel sounds, soft, nontender, no hepatosplenomegaly Skin: no rashes, warm and dry Psychiatric: Orientation: alert and oriented x 3 Results & Data Vital Signs (Past 12 Hours) Vital Signs Temp Pulse Resp BP Pulse Ox 06/10/19 15:33 36.9 C 95 H 16 160/79 H 99 06/10/19 15:22 89 18 99 06/10/19 07:24 36.6 C 85 18 168/79 H 98 06/10/19 07:07 82 18 98 Laboratory Results 06/10/19 04:54 06/10/19 04:54
[2019-06-10] MEDS ORDERED: LEVALBUTEROL 1.25MG/0.5ML NEB NEB PRN (17:09)
--- NOTE | 2019-06-10 19:02 | Surgery Progress Note ---
Date of Service June 10, 2019 Assessment & Plan (1) Empyema: -s/p decortication -keep CT in today as air leak seems to have stopped -continue pain control measures -continue ambulation Subjective Pt. denies SOB. No fevers, shakes, chills. She continues to ambulate in hallway. Physical Exam Constitutional: + thin; no acute distress Neck: trachea midline Respiratory: normal respiratory effort; no respiratory distress and no labored breathing Psychiatric: A+Ox3, euthymic affect Results & Data Vital Signs (Past 12 Hours) Vital Signs Temp Pulse Resp BP Pulse Ox 06/10/19 15:33 36.9 C 95 H 16 160/79 H 99 06/10/19 15:22 89 18 99 06/10/19 07:24 36.6 C 85 18 168/79 H 98 06/10/19 07:07 82 18 98 PG Care Time/CCT Total # of Minutes Spent Total Time Spent with Patient: Total time spent is greater than 50% in coordination of care (as documented) at patient's floor/unit and/or counseling patient: Coding Level of Care Code None Diagnoses Empyema J86.9
[2019-06-10] MEDS: QUETIAPINE FUMARATE 25 MG TABLET PO SCH (21:43)
[2019-06-10] MEDS: NICOTINE 21 MG/24 HR TDSY TD SCH (21:45)
[2019-06-11] MEDS: PIPERACILLIN/TAZOBACTAM 3.375 GM in DEXTROSE 5% 100 ML IV SCH ×3 (01:57→18:06)
[2019-06-11] MEDS: OXYCODONE HCL IR 5 MG TAB (IMMEDIATE RELEASE) PO PRN ×4 (04:14→22:17)
[2019-06-11 05:38] LABS: Hematocrit (blood only) 28.2 % (37-47); Mean Corpuscular Hemoglobin 27.4 pg (25-34); Mean Corpuscular Hgb Conc 31.9 g/dL (32-36); Mean Corpuscular Volume 85.7 fL (80-100); Mean Platelet Volume 8.4 fL (7.4-10.4); Platelet Count 755 K/uL (130-400); RDW Coefficient of Variation 19.7 % (11.5-14.5); RDW Standard Deviation 54.7 fL (36.4-46.3); Red Blood Count 3.29 M/uL (4.2-5.4); White Blood Count 22.57 K/uL (4.8-10.8)
[2019-06-11 06:05] LABS: BUN Creatinine Ratio 39.2 (10-20); Calcium 8.7 mg/dl (8.5-10.1); Creatinine Clr Calc Pharmacy 67.1 ml/min; Est GFR (Non-African American) 102.7; Magnesium 2.1 mg/dl (1.8-2.4); Potassium 3.4 mmol/L (3.5-5.1)
[2019-06-11] MEDS: FORMOTEROL 20 MCG/2 ML VIAL NEB SCH ×2 (07:55→19:55)
[2019-06-11] MEDS: MEGESTROL ACETATE SUSP 400 MG/10 ML UDC PO SCH ×2 (08:23→21:21)
[2019-06-11] MEDS: POTASSIUM CHLORIDE 10 MEQ TABCR PO SCH ×3 (08:23→21:22)
[2019-06-11] MEDS: ENOXAPARIN INJ 30 MG/0.3 ML SYR SQ SCH (08:23)
[2019-06-11] MEDS: SERTRALINE HCL 100 MG TABLET PO SCH ×2 (08:23→21:23)
[2019-06-11] MEDS: UMECLIDINIUM BROMIDE 62.5MCG/BLISTER 7 PUFFS/INHALER INH SCH (08:23)
[2019-06-11] MEDS: LACTOBACILLUS ACIDOPHILUS 1 GM PACK PO SCH ×3 (08:23→16:19)
[2019-06-11] MEDS: CHOLESTYRAMINE LIGHT 4 GM PKT PO SCH (10:10)
--- NOTE | 2019-06-11 17:53 | Progress Note ---
DATE: 06/11/2019 Ms. March was seen today. She looks wonderful. She is draining very little from her chest tube. She still has an air leak; however. We are going to see how she looks and I may want to put a Heimlich valve on her tomorrow and allow her to be discharged as she really does look good otherwise. Her x-ray still shows she has a centimeter separation in her lateral inferior right lower lobe and her chest wall. Overall, however, I am quite pleased with her. She is eating very well.
--- NOTE | 2019-06-11 20:19 | Hospitalist Progress Note ---
Date of Service June 11, 2019 Assessment & Plan (1) Pneumonia: Chest x-ray at time of admission showed RLL infiltrate + pleural effusion (empyema as discussed below). Pleural fluid from VATS grew Strep intermedius. Persistent leukocytosis, but doing well clinically. WBC 23,950 day of admission --> 31,220 06/07, --> 22,570 today. Continue IV piperacillin / tazobactam with transition to oral antibiotic therapy at time of discharge. (2) Empyema of right pleural space: US in clinic demonstrated complicated pleural effusion. VATS with decortication performed by Dr. Gilliland 06/01. Culture grew Strep intermedius. Chest tube management per Thoracic Surgery. Continue IV piperacillin / tazobactam with transition to oral antibiotic therapy at time of discharge. (3) COPD (chronic obstructive pulmonary disease): Pulmonary status stable. Continue nebs. (4) Tobacco abuse: Smoking cessation counseling. (5) Protein calorie malnutrition: Cachectic. Low BMI. 10-15 lb wt loss. Seen in consultation by Nutrition. Continue dietary supplements. (6) Hypokalemia: Serum K as low as 2.5. Replaced. K today = 3.4. Follow. (7) DVT prophylaxis: SQ enoxaparin. Ambulate. (8) Discharge planning issues: Anticipated discharge to home. Medical follow-up with Dr. Nova. Subjective Recheck for multiple problems. Patient seen in their room around 1430. Chest tube with persistent air leak. Rare cough. No shortness of breath. No fever. Ambulating. Review of Systems: Constitutional- no fever. Cardiac- no chest pain. Pulmonary- as noted above. GI- no nausea, vomiting, diarrhea, melena, hematochezia. - no urinary symptoms. Otherwise, as noted above. Physical Exam Constitutional: no acute distress Eyes: + anicteric sclerae Respiratory: no respiratory distress Auscultation: + rales (right base) Cardiovascular: Rate/Rhythm: regular rate and regular rhythm Heart Sounds: no gallop Vessels: no JVD Extremities: no calf tenderness and no edema Chest (Breasts): Chest: + abnormal inspection of chest (right chest tube, no apparent leak) Gastrointestinal (Abdomen): normal bowel sounds, soft, nontender, no hepatosplenomegaly Skin: no rashes, warm and dry Psychiatric: Orientation: alert and oriented x 3 Results & Data Vital Signs (Past 12 Hours) Vital Signs Temp Pulse Resp BP Pulse Ox 06/11/19 20:09 97 H 16 93 06/11/19 15:40 36.9 C 97 H 16 160/75 H 97 Laboratory Results 06/11/19 05:01 06/11/19 05:01
[2019-06-11] MEDS: QUETIAPINE FUMARATE 25 MG TABLET PO SCH (21:23)
[2019-06-11] MEDS: NICOTINE 21 MG/24 HR TDSY TD SCH (21:24)
[2019-06-12] MEDS: PIPERACILLIN/TAZOBACTAM 3.375 GM in DEXTROSE 5% 100 ML IV SCH ×2 (01:14→09:57)
[2019-06-12] MEDS: FORMOTEROL 20 MCG/2 ML VIAL NEB SCH (06:53)
[2019-06-12 07:56] LABS: Est GFR (African American) 121.2; Est GFR (Non-African American) 104.6
[2019-06-12] MEDS: MEGESTROL ACETATE SUSP 400 MG/10 ML UDC PO SCH (08:14)
[2019-06-12] MEDS: ENOXAPARIN INJ 30 MG/0.3 ML SYR SQ SCH (08:14)
[2019-06-12] MEDS: POTASSIUM CHLORIDE 10 MEQ TABCR PO SCH ×2 (08:14→13:47)
[2019-06-12] MEDS: LACTOBACILLUS ACIDOPHILUS 1 GM PACK PO SCH ×2 (08:15→12:52)
[2019-06-12] MEDS: SERTRALINE HCL 100 MG TABLET PO SCH (08:15)
[2019-06-12] MEDS: UMECLIDINIUM BROMIDE 62.5MCG/BLISTER 7 PUFFS/INHALER INH SCH (08:15)
[2019-06-12] MEDS: OXYCODONE HCL IR 5 MG TAB (IMMEDIATE RELEASE) PO PRN ×2 (08:26→15:03)
--- NOTE | 2019-06-12 09:34 | XRay Report ---
XR chest 2V PA/lateral HISTORY: right pneumothorax COMPARISON: Chest 06/10/2019. FINDINGS: Decrease in size in the small right basilar hydropneumothorax. Maximal pleural gap is 6 mm. Right-sided chest tube remains unchanged in position and terminates within the right mid lateral ple ural space. The left lung is clear. The heart is normal in size. Posterior fusion seen within the lum bar spine. IMPRESSION: Decrease in size in the small right basilar hydropneumothorax. ACT 112: Negative or not required by law. Electronically signed by: Ludwig Olivas M.D. 06/12/2019 9:33 AM
--- NOTE | 2019-06-12 14:11 | Hospitalist Progress Note ---
Date of Service June 12, 2019 Assessment & Plan (1) Pneumonia: Chest x-ray at time of admission showed RLL infiltrate + pleural effusion (empyema as discussed below). Pleural fluid from VATS grew Strep intermedius. Persistent leukocytosis, but doing well clinically. WBC 23,950 day of admission --> 31,220 06/07, --> 22,570 on 06/11. Received IV piperacillin / tazobactam and transitioned to oral antibiotic therapy with amoxicillin / clavulanic acid x 4 weeks. (2) Empyema of right pleural space: US in clinic demonstrated complicated pleural effusion. VATS with decortication performed by Dr. Gilliland 06/01. Culture grew Strep intermedius. Chest tube management per Thoracic Surgery. Antibiotic therapy as noted above. (3) COPD (chronic obstructive pulmonary disease): Pulmonary status stable. Continue nebs. (4) Tobacco abuse: Smoking cessation counseling. (5) Protein calorie malnutrition: Cachectic. Low BMI. 10-15 lb wt loss. Seen in consultation by Nutrition. Continue dietary supplements. (6) Hypokalemia: Serum K as low as 2.5. Replaced. K 3.4 on 06/11. DC on KCl 10 mEq BID. Follow. (7) DVT prophylaxis: SQ enoxaparin. Ambulate. (8) Discharge planning issues: Discharge to home. Medical follow-up with Dr. Nova. Thoracic Surgery follow-up with Dr. Gilliland. Subjective Recheck for multiple problems. Patient seen in their room around 1420. Chest tube removed by Thoracic Surgery. Ready to go home. No fever, cough, SOB, chest pain, nausea, vomiting, diarrhea. Physical Exam Constitutional: no acute distress Eyes: + anicteric sclerae Respiratory: no respiratory distress Auscultation: + rales (right base) Cardiovascular: Rate/Rhythm: regular rate and regular rhythm Heart Sounds: no gallop Vessels: no JVD Extremities: no calf tenderness and no edema Gastrointestinal (Abdomen): normal bowel sounds, soft, nontender, no hepatosplenomegaly Skin: no rashes, warm and dry Psychiatric: Orientation: alert and oriented x 3 Results & Data Vital Signs (Past 12 Hours) Vital Signs Temp Pulse Pulse Resp BP Pulse Ox 06/12/19 10:48 36.6 C 96 H 16 166/79 H 96 06/12/19 07:18 36.7 C 85 16 152/76 H 97 06/12/19 06:55 68 16 98
--- NOTE | 2019-06-12 14:11 | XRay Report ---
XR chest 1V portable HISTORY: tube removal COMPARISON: Chest 06/12/2019. FINDINGS: Interval removal of the right-sided chest tube. The small right basilar hydropneumothorax i s not significantly changed. This demonstrates a maximal pleural gap of 6 mm. Right basilar linear de nsities persist. The left lung is clear. The heart is stable in size. Lumbar spinal fusion hardware i s again noted. IMPRESSION: Interval removal of the right-sided chest tube. No significant change in the small right basilar hydr opneumothorax. ACT 112: Negative or not required by law. Electronically signed by: Ludwig Olivas M.D. 06/12/2019 2:10 PM
--- NOTE | 2019-06-12 16:42 | Progress Note ---
DATE: 06/12/2019 Mariely was seen today on 06/12/2019. I am quite pleased with her. She has no air leak. We removed her chest tube and I think her x-ray looks very good. Her incision was clean. We are going to allow her to be discharged today. I spoke to Dr. Robertson and we will be covering her for a few more weeks with antibiotics by mouth. I will see her back in the office in a week with an x-ray.
--- NOTE | 2019-06-12 22:41 | Discharge Summary ---
Date of Service June 12, 2019 Admission HPI Per Admitting Provider This is a 58-year-old female with PMH of COPD, tobacco use disorder, depression and other medical problems listed below who presents from pulmonary clinic as direct admission. Initially had bronchitis back in February and March and was treated with azithromycin and prednisone. CXR was obtained at this time and demonstrated a loculated pleural effusion tracking up in the right chest. Was then treated with two courses of Levaquin. CXR was repeated again and did not show a significant change in the pleural effusion, so patient was referred to pulmonary for further evaluation. Patient endorses fatigue and ongoing cough without productive sputum, wheezing, and dyspnea on exertion. Has R sided lateral rib pain. Endorses an approximate 12 pound weight loss and decreased appetite since beginning of illness back in the fall. Denies fever, chills, night sweats, lightheadedness, visual changes, chest pain, palpitations, hemoptysis, nausea, vomiting, abdominal pain, dysuria, diarrhea or constipation. Principal Diagnosis right lower lobe pneumonia with empyema, Strep intermedius OTHER ACUTE / NEW DIAGNOSES: hypokalemia malnutrition Discharge Data Allergies Allergy/AdvReac Type Severity Reaction Status Date / Time procaine Allergy Unknown Verified 05/31/19 15:00 Consultations 05/31/19 18:03 Consult Thoracic Surgery Routine 06/01/19 08:00 Consult Pulmonology Routine 06/01/19 17:11 Consult Bakery Team Member Routine Procedures Performed Operation Date: 06/01/19 12:50 Actual Procedures p Right Thoracoscopy with Extensive Decortication, Evacuation of Pleural Contents(Right) - Marlon Gilliland MD, [facility] Hospital Course (1) Pneumonia: Chest x-ray at time of admission showed RLL infiltrate + pleural effusion (empyema as discussed below). Pleural fluid from VATS grew Strep intermedius. Persistent leukocytosis, but doing well clinically. WBC 23,950 day of admission --> 31,220 06/07, --> 22,570 on 06/11. Received IV piperacillin / tazobactam and transitioned to oral antibiotic therapy with amoxicillin / clavulanic acid x 4 weeks. (2) Empyema of right pleural space: US in clinic demonstrated complicated pleural effusion. VATS with decortication performed by Dr. Gilliland 06/01. Culture grew Strep intermedius. Chest tube management per Thoracic Surgery. Antibiotic therapy as noted above. (3) COPD (chronic obstructive pulmonary disease): Pulmonary status stable. Continue nebs. (4) Tobacco abuse: Smoking cessation counseling. (5) Protein calorie malnutrition: Cachectic. Low BMI. 10-15 lb wt loss. Seen in consultation by Nutrition. Continue dietary supplements. (6) Hypokalemia: Serum K as low as 2.5. Replaced. K 3.4 on 06/11. DC on KCl 10 mEq BID. Follow. (7) DVT prophylaxis: SQ enoxaparin. Ambulate. (8) Discharge planning issues: Discharged to home. Medical follow-up with Dr. Nova. Thoracic Surgery follow-up with Dr. Gilliland. Total Time Total Time Spent Total Time Spent (In Minutes): 40 Discharge Plan Discharge Items Patient Disposition: Home - Self-Care Reason For Visit: infection right chest Discharge Diagnosis: infection right chest Condition on Discharge: Good Activity: Resume your previous activity Non-emergency contact: Primary Care Provider, Hospitalist and Surgeon Call non-emergency contact if: you have any medication questions, your symptoms worsen and you have a fever Follow-up/Referrals: Marlon Gilliland MD, FACS [Surgeon] - (Please call office for appointment in 2 weeks.) Tricia Rivas MD [Primary Care Provider] - (06/18/2019 1:00 PM Tricia Acosta MD) Diet: Heart Healthy Diet Comment: nutritional supplements as instructed Addtl Attending Provider Instructions: MEDICATION CHANGES: amoxicillin / clavulanic acid (Augmentin) 875 mg Take 1 pill twice a day with meals until gone for infection. potassium chloride 10 mEq Take 1 pill twice a day for low potassium. SUMMARY OF TEST RESULTS: X-rays and CT scans showed combination of pneumonia in your right lung and infected fluid around the lung. RECOMMENDATIONS FOR FOLLOW-UP: Recheck with Dr. Gilliland in about 2 weeks. OTHER INSTRUCTIONS: Seek medical attention if you have: * temperature above 101 * chest pain or trouble breathing * abdominal pain, nausea, vomiting * diarrhea, dark stools or bloody stools * any unanswered questions or concerns Call 911 if symptoms are severe. Please take good care of yourself. Call if you have any questions or problems. You can reach a [facility] hospitalist on duty at [facility] 24 hours a day by calling [phone]. My cell # is [phone]. Pending Studies at Discharge: No Stand-Alone Forms: My [facility], Smoking Cessation Medications and DC Order Prescriptions: New amoxicillin-pot clavulanate [Augmentin] 875-125 mg tablet 1 tab PO BID 28 Days Qty: 56 RF: 0 potassium chloride 10 mEq tablet extended release 10 meq PO BID Qty: 60 RF: 1 Continued albuterol sulfate 90 mcg/actuation HFA aerosol inhaler 2 puffs INH Q6H PRN (Reason: Shortness Of Breath Or Wheezing) RF: 0 prenat.vits,gorge,kkd-iwuy-yimov Tablet 1 tab PO DAILY RF: 0 quetiapine 25 mg tablet 25 mg PO HS RF: 0 ipratropium-albuterol 0.5 mg-3 mg(2.5 mg base)/3 mL Solution For Nebulization 3 ml INHALATION QID PRN (Reason: Shortness Of Breath Or Wheezing) RF: 0 sertraline 100 mg Tablet 100 mg PO BID RF: 0 Discharge Orders: Discharge Order (Routine); Ordered 06/12/19 Ordered By: Manuel Robertson Admission Data Admit Date/Time: 05/31/19 20:16 Attending Provider: Manuel Robertson Admit Provider: Ya Landeros Primary Care Provider: Tricia Rivas Other Providers: Marlon Gilliland ; Zaina Dunne ; Jose Alberto Nolen ; Justo Gonzalez Other Interventions: Discharge Summary Assessment (RN) Last Done: 06/12/19 14:41 DC Date/Time DO NOT enter until pt leaves facility: 06/12/19 16:08
--- NOTE | 2019-06-15 09:51 | Coding Query ---
MALNUTRITION To promote full compliance with coding requirements relating to patient care, physician participation is requested in all cases of data integration developer uncertainty. Please assist us with the question(s) below: Please place an X within the parenthesis (x). If other, please document: "Malnutrition" is documented in this record. If possible, please check the box that provides a more specific diagnosis: ( ) Mild malnutrition (x ) Moderate malnutrition ( ) Severe malnutrition ( ) Protein malnutrition (kwashiorkor) ( ) Severe protein calorie malnutrition ( ) Protein calorie malnutrition, unspecified ( ) Other (please specify): Was this diagnosis present on admission? Please place an X within the parenthesis (x). (x ) Present on admission ( ) Not present on admission ( ) Unable to be clinically determined Thank you Nighat Mata [facility]OSPITALJim
== END 2019-06-12 16:08 | disposition home or self-care (01) | DRG 163 ==
LOC: 3W 20:16 → SUATTDRO 20:16 → 1E 06-01 16:40 → 3W 06-02 14:59

== ENCOUNTER 2021-12-08 20:19 | Observation (INO) ==
[2021-12-08] MEDS ORDERED: ONDANSETRON INJ 2 MG/ML 2 ML VIAL IV STA ×2 (21:33→23:12)
--- NOTE | 2021-12-08 21:37 | Emergency Department Note ---
History of Present Illness General Chief complaint: Vomiting Stated complaint: VOMITING, NAUSEA, ABD PAIN Time Seen by Provider: 12/08/21 21:26 History of Present Illness Maximum Pain Intensity: 5 This is a 61-year-old female presenting to the emergency department for evaluation of nausea, vomiting, and mid abdominal pain for the past 1 day. The patient states that she started vomiting yesterday and it was initially watery. The emesis is now more bile like but not with distinct hematemesis. She does have some epigastric and periumbilical abdominal discomfort. No history of abdominal surgery. No fevers or chills. She is having difficulty tolerating foods and liquids because of her symptoms. She did take a laxative early yesterday and this has caused diarrhea, which may be contributing to some dehydration. She rates her current discomfort a 5/10. Home Medications Medication Instructions Recorded Confirmed Type lisinopril 10 mg tablet 10 mg PO DAILY 12/09/21 12/09/21 History sertraline 100 mg tablet 200 mg PO DAILY 12/09/21 12/09/21 History Allergies Allergy/AdvReac Type Severity Reaction Status Date / Time procaine AdvReac Intermediate ANXIETY--SHAKING Verified 12/08/21 21:56 ALL OVER Past Med/Surg History Medical History Anemia Bronchitis COPD (chronic obstructive pulmonary disease) MDD (major depressive disorder) Protein calorie malnutrition Surgical History Fusion of lumbar spine 1995 Family History Brother Colorectal cancer Mother Breast cancer Other Alzheimer disease Heart disease Social History Smoking Status: Current every day smoker packs per day: 1; Years Smoked: 40; Second Hand Exposure: Yes; Hx Alcohol Use: No Hx Substance Use: No Preferred Language: Swiss Communication Ability: Effective [employer] Incident Responder Required: No Beliefs That Will Affect Care: None marital status: Current Living Situation: Family current occupational status: disabled Feels Safe at Home: Yes Assistive Devices: Walker Review of Systems A total of 10 systems reviewed and were otherwise negative Physical Exam Vital Signs Vital Signs - 24 hr 12/08/21 20:21 12/08/21 21:33 12/08/21 23:22 Temperature 36.6 C Temperature Source Temporal Artery Scan Pulse Rate 58 L Pulse Rate [Apical] 74 Pulse Rhythm Regular Pulse Strength Normal Respiratory Rate 17 16 Respiratory Effort / Characteristics Non-Labored Spontaneous Respiratory Depth Normal Respiratory Pattern Regular Blood Pressure 150/75 H Blood Pressure [Left Arm] 145/55 H Blood Pressure Mean 100 Blood Pressure Mean [Left Arm] 85 Blood Pressure Position Sitting Pulse Oximetry 98 98 Oxygen Delivery Method Room Air Room Air Room Air Sepsis Recent Fever Within 48 Hours No Sepsis New/Unexplained Change in Mental Status N/A Sepsis Action Taken by Nursing No Action Required 12/09/21 01:00 Temperature Temperature Source Pulse Rate Pulse Rate [Apical] 59 L Pulse Rhythm Pulse Strength Respiratory Rate 15 Respiratory Effort / Characteristics Respiratory Depth Respiratory Pattern Blood Pressure Blood Pressure [Left Arm] 133/61 Blood Pressure Mean Blood Pressure Mean [Left Arm] 85 Blood Pressure Position Pulse Oximetry 100 Oxygen Delivery Method Room Air Sepsis Recent Fever Within 48 Hours Sepsis New/Unexplained Change in Mental Status Sepsis Action Taken by Nursing VITALS: Vitals are noted on the nurse's note and reviewed by myself. Vital signs stable. GENERAL: Frail appearing white female who appears mildly uncomfortable but not toxic. She is answering questions appropriately. She is overall cooperative. HEAD: Normocephalic atraumatic. NECK: Supple without nuchal rigidity. No lymphadenopathy. No thyromegaly. Cervical spine is nontender. HEART: Regular rate and rhythm without murmurs gallops or rubs. LUNGS: Clear to auscultation bilaterally without wheezes, rales or rhonchi. No retractions or accessory muscle use. ABDOMEN: Positive normal bowel sounds x 4. Soft with mild periumbilical tenderness. No rebound or guarding. No lower abdominal tenderness. MUSCULOSKELETAL: No muscle atrophy, erythema, or edema noted. Full range of motion in all extremities. Course Administered Medications Magnesium Sulfate/Dextrose (Magnesium Sulfate / D5w) 1 gm in 100 mls @ 50 mls/hr IV ONE STA Stop: 12/09/21 02:45 Last Admin: 12/09/21 01:06 Dose: 50 mls/hr Documented By: ML Sodium Chloride (1/2 Nss) 1,000 mls @ 100 mls/hr IV .Q10H STA Stop: 12/09/21 11:28 Last Admin: 12/09/21 01:37 Dose: 100 mls/hr Documented By: ALLYSON Discontinued Medications Aspirin (Aspirin Chew 324 Mg) 324 mg PO NOW STA Stop: 12/09/21 00:13 Last Admin: 12/09/21 00:23 Dose: 324 mg Documented By: ALLYSON Sodium Chloride (Nss 1000ml) 1,000 mls @ 999 mls/hr IV .Q1H1M MADIHA Stop: 12/08/21 22:45 Last Infusion: 12/08/21 22:46 Dose: 0 mls/hr Documented By: Admin: 12/08/21 21:44 Dose: 999 mls/hr Documented By: MILTON Ioversol (Optiray 320 100ml) 93 ml IV ONCE ONE Stop: 12/08/21 22:39 Last Admin: 12/08/21 22:39 Dose: 93 ml Documented By: SIVAKUMAR Morphine Sulfate (Morphine Sulfate 2 Mg/Ml Carp) 2 mg IV Q30M PRN PRN Reason: Pain Stop: 12/22/21 21:32 Last Admin: 12/08/21 23:20 Dose: 2 mg Documented By: Admin: 12/08/21 21:44 Dose: 2 mg Documented By: MILTON Nitroglycerin (Nitroglycerin 2% Ointment 30gm Tube) 1 inch EXT NOW ONE Stop: 12/09/21 00:13 Last Admin: 12/09/21 00:23 Dose: 1 inch Documented By: ALLYSON Ondansetron HCl (Ondansetron Inj 2 Mg/Ml 2 Ml Vial) 4 mg IV NOW STA Stop: 12/08/21 21:34 Last Admin: 12/08/21 21:44 Dose: 4 mg Documented By: MILTON Ondansetron HCl (Ondansetron Inj 2 Mg/Ml 2 Ml Vial) 4 mg IV NOW STA Stop: 12/08/21 23:13 Last Admin: 12/08/21 23:20 Dose: 4 mg Documented By: ALLYSON Medical Decision Making Differential Diagnosis Differential diagnosis: Etiologies such as gastroenteritis, food borne illness, infections, appendicitis, diverticulitis, inflammatory bowel disease, obstruction, GI bleed, biliary pathology, cardiac process, intracranial process, as well as others were entertained. Laboratory Data Result diagrams: 12/08/21 21:33 12/08/21 21:33 Lab Results 12/08/21 12/08/21 12/08/21 Range/Units 21:33 21:33 21:33 WBC 12.28 H (4.8-10.8) K/ul RBC 4.87 (3.93-5.22) M/uL Hgb 15.1 (12.0-16.0) g/dl Hct 43.4 (34.1-44.9) % MCV 89.1 (80.0-100.0) fL MCH 31.0 (25.0-34.0) pg MCHC 34.8 (32.0-36.0) g/dL RDW Std Deviation 43.0 (36.4-46.3) fL RDW Coeff of Imguel Ángel 13.1 (11.5-14.5) % Plt Count 414 H (130-400) K/uL MPV 9.1 L (9.4-12.3) fL Immature Gran % (Auto) 0.2 % Neut % (Auto) 89.9 % Lymph % (Auto) 7.7 % [place] % (Auto) 1.9 % Eos % (Auto) 0.0 % Baso % (Auto) 0.3 % Neut # (Auto) 11.03 H (1.4-6.5) K/uL Lymph # (Auto) 0.95 L (1.2-3.4) K/uL [place] # (Auto) 0.23 L (0.24-0.82) K/uL Eos # (Auto) 0.00 (0-0.50) K/uL Baso # (Auto) 0.04 (0-0.2) K/uL Immature Gran # (Auto) 0.03 H (0.00-0.02) K/uL PT 11.2 (9.0-12.0) Seconds INR 1.1 (0.9-1.1) APTT 25.7 (21.0-31.0) Seconds PTT Ratio 0.9 Sodium 141 (136-145) mmol/L Potassium 3.6 (3.5-5.1) mmol/L Chloride 100 (98-107) mmol/L Carbon Dioxide 26 (21-32) mmol/L Anion Gap 15 H (3-11) BUN 32 H (6-23) mg/dl Creatinine 0.87 (0.6-1.2) mg/dl Est Cr Clr Drug Dosing 37.9 ml/min Est GFR ( Amer) 82.8 ml/min Est GFR (Non-Af Amer) 71.4 ml/min BUN/Creatinine Ratio 36.8 H (10-20) Glucose 130 H (70-99(Fasting)) mg/dl Calcium 10.2 H (8.5-10.1) mg/dl Magnesium 1.6 L (1.7-2.4) mg/dl Total Bilirubin 0.5 (0.2-1.0) mg/dl AST 20 (13-39) U/L ALT 19 (7-52) U/L Alkaline Phosphatase 82 (34-104) U/L Troponin I High Sens 18.3 H (0-14) pg/ml Total Protein 8.0 (6.0-8.3) gm/dl Albumin 4.7 (3.4-5.0) gm/dl Globulin 3.3 (2.5-4.0) gm/dl Albumin/Globulin Ratio 1.4 (0.9-2) Lipase 5 L (11-82) U/L SARS-CoV-2, RNA, NAAT (NEGATIVE) 12/08/21 12/08/21 Range/Units 21:49 23:19 WBC (4.8-10.8) K/ul RBC (3.93-5.22) M/uL Hgb (12.0-16.0) g/dl Hct (34.1-44.9) % MCV (80.0-100.0) fL MCH (25.0-34.0) pg MCHC (32.0-36.0) g/dL RDW Std Deviation (36.4-46.3) fL RDW Coeff of Miguel Ángel (11.5-14.5) % Plt Count (130-400) K/uL MPV (9.4-12.3) fL Immature Gran % (Auto) % Neut % (Auto) % Lymph % (Auto) % [place] % (Auto) % Eos % (Auto) % Baso % (Auto) % Neut # (Auto) (1.4-6.5) K/uL Lymph # (Auto) (1.2-3.4) K/uL [place] # (Auto) (0.24-0.82) K/uL Eos # (Auto) (0-0.50) K/uL Baso # (Auto) (0-0.2) K/uL Immature Gran # (Auto) (0.00-0.02) K/uL PT (9.0-12.0) Seconds INR (0.9-1.1) APTT (21.0-31.0) Seconds PTT Ratio Sodium (136-145) mmol/L Potassium (3.5-5.1) mmol/L Chloride (98-107) mmol/L Carbon Dioxide (21-32) mmol/L Anion Gap (3-11) BUN (6-23) mg/dl Creatinine (0.6-1.2) mg/dl Est Cr Clr Drug Dosing ml/min Est GFR ( Amer) ml/min Est GFR (Non-Af Amer) ml/min BUN/Creatinine Ratio (10-20) Glucose (70-99(Fasting)) mg/dl Calcium (8.5-10.1) mg/dl Magnesium (1.7-2.4) mg/dl Total Bilirubin (0.2-1.0) mg/dl AST (13-39) U/L ALT (7-52) U/L Alkaline Phosphatase (34-104) U/L Troponin I High Sens 35.6 H D (0-14) pg/ml Total Protein (6.0-8.3) gm/dl Albumin (3.4-5.0) gm/dl Globulin (2.5-4.0) gm/dl Albumin/Globulin Ratio (0.9-2) Lipase (11-82) U/L SARS-CoV-2, RNA, NAAT NEGATIVE (NEGATIVE) Imaging Data Radiologist's Impression: Preliminary Findings Only See Final Report For Complete Findings CT ABDOMEN & PELVIS With Contrast: Impression: No dilated bowel is seen to suggest obstruction. Nonobstructing left renal calculus. The appendix is not clearly delineated given lack of intraperitoneal fat. Postsurgical change related to prior laminectomy and fusion of the lumbar spine. Dilated gonadal veins which could be seen with pelvic congestion syndrome in the appropriate clinical scenario. Radiologist:Martínez Thibodeaux, BETHANYhone:[phone] ECG Data Attestation: I personally reviewed and interpreted this ECG as follows: Indication: + abdominal pain and + vomiting Additional Comments: Sinus bradycardia @46 bpm High concern for 2:1 second degree heart block No acute ST elevation Abnormal ECG When compared with ECG of 01-JUN-2019 07:26, Vent. rate has decreased BY 46 BPM MDM Narrative Physical exam and history were performed. Nursing notes, EMR, and Medication List were personally reviewed. Patient appears to have nausea and vomiting symptoms bringing her to the ER. On examination she appears mildly uncomfortable but not toxic. Most of her d iscomfort seems to be in the abdomen with nausea and vomiting. IV access was established and labs were obtained. She was hydrated with normal saline. She was given IV morphine and IV Zofran. Patient was sent to CT scan for further evaluation of her symptoms. An order was placed for continuous cardiac monitoring. The monitor shows a rate of 71 with normal sinus rhythm. The patient's blood work is as above and was reviewed. She does have a slightly elevated white count of 12,000. INR is 1.1. Magnesium is 1.6. Lipase and transaminases are not diagnostic. TSH shows euthyroid state. COVID is negative. CT scan was reviewed by myself and radiology showing no acute process. Patient does have a detectable high-sensitivity troponin that was initially 18. A repeat was performed and is now 35. Repeat EKG was performed and reviewed with my attending. The patient may have a 2-1 type II block on initial EKG. This seems to have corrected and repeat EKG is normal sinus without acute ST elevation. With an elevating troponin and EKG changes the patient does not seem well for discharge home. The case was discussed with the on-call [facility] hospitalist who agreed to evaluate the patient here in the ER. Please see their dictation for further patient course, plan, and disposition. The chart was completed utilizing [employer] Voice Recognition Software. Grammatical errors, random word insertions, pronoun errors, and incomplete sentences are an occasional consequence of this system due to software limitations, ambient noise, and hardware issues. Any formal questions or concerns about the content, text, or information contained within the body of this dictation should be directly addressed to the provider for clarification. . Impression & Plan Elevated troponin, Nausea and vomiting, Acute electrocardiogram changes Discharge Plan Visit Data Chief Complaint: Vomiting Stated Complaint: VOMITING, NAUSEA, ABD PAIN ED Provider: Oniel Peters ED Midlevel Provider: Vinod Castelan Discharge Problem: Elevated troponin, Nausea and vomiting, Acute electrocardiogram changes Patient Disposition: Admitted As Inpatient Forms Stand Alone Forms: My [facility] Prescriptions Prescriptions: No Action sertraline 100 mg tablet 200 mg PO DAILY lisinopril 10 mg Tablet 10 mg PO DAILY Referrals Referrals: Tricia Nova MD [Primary Care Provider] -
[2021-12-08 21:43] LABS: Basophils # (auto) 0.04 K/uL (0-0.2); Basophils % (auto) 0.3 %; Hematocrit (blood only) 43.4 % (34.1-44.9); Hemoglobin 15.1 g/dl (12.0-16.0); Immature Granulocytes # (auto) 0.03 K/uL (0.00-0.02); Immature Granulocytes % (auto) 0.2 %; Lymphocytes # (auto) 0.95 K/uL (1.2-3.4); Lymphocytes % (auto) 7.7 %; Mean Corpuscular Hgb Conc 34.8 g/dL (32.0-36.0); Mean Corpuscular Volume 89.1 fL (80.0-100.0); Mean Platelet Volume 9.1 fL (9.4-12.3); Monocytes # (auto) 0.23 K/uL (0.24-0.82); Monocytes % (auto) 1.9 %; Neutrophils # (auto) 11.03 K/uL (1.4-6.5); Neutrophils % (auto) 89.9 %; Platelet Count 414 K/uL (130-400); RDW Coefficient of Variation 13.1 % (11.5-14.5); Red Blood Count 4.87 M/uL (3.93-5.22); White Blood Count 12.28 K/ul (4.8-10.8)
[2021-12-08] MEDS: MoRPHine SULFATE 2 MG/ML CARP IV PRN ×2 (21:44→23:20)
[2021-12-08] MEDS ORDERED: SODIUM CHLORIDE 0.9% 1000ML 1,000 ML IV SCH (21:45)
[2021-12-08 21:55] LABS: INR 1.1 (0.9-1.1); Partial Thromboplastin Ratio 0.9; Partial Thromboplastin Time 25.7 Seconds (21.0-31.0); Prothrombin Time 11.2 Seconds (9.0-12.0)
[2021-12-08 22:05] LABS: Albumin Globulin Ratio 1.4 (0.9-2); Albumin Level 4.7 gm/dl (3.4-5.0); BUN Creatinine Ratio 36.8 (10-20); Bilirubin,Total 0.5 mg/dl (0.2-1.0); Calcium 10.2 mg/dl (8.5-10.1); Creatinine Clr Calc Pharmacy 37.9 ml/min; Est GFR (African American) 82.8 ml/min; Est GFR (Non-African American) 71.4 ml/min; Globulin 3.3 gm/dl (2.5-4.0); Magnesium 1.6 mg/dl (1.7-2.4); Potassium 3.6 mmol/L (3.5-5.1)
[2021-12-08 22:11] LABS: Troponin I High Sensitivity 18.3 pg/ml (0-14)
[2021-12-08] MEDS ORDERED: OPTIRAY 320 100ml IV ONE (22:38)
[2021-12-09] MEDS ORDERED: NITROGLYCERIN 2% OINTMENT 30GM TUBE EXT ONE (00:12)
[2021-12-09] MEDS ORDERED: ASPIRIN CHEW 324 MG PO STA (00:12)
[2021-12-09] MEDS ORDERED: MAGNESIUM SULFATE / D5W 1 GM/100 ML BAG IV STA (00:46)
--- NOTE | 2021-12-09 00:55 | History & Physical Report ---
Date of Service December 09, 2021 Assessment & Plan (1) Abdominal pain: Plan: Possible viral illness Rule out UTI Troponin elevation/transient bradycardia secondary to discomfort COPD, symptoms at baseline hypertension, slightly elevated ongoing tobacco abuse Hyperglycemia rule out DM Malnutrition low BMI OBS PCU given troponin elevation/transient bradycardia TTE Re: Troponin elevation Check UA Supportive management for GI symptoms for now Check hemoglobin A1c nicotine patch as needed Nutrition consult RE low BMI DVT prophylaxis. Heparin subcu Full code Text document was generated using [employer] voice recognition software. It may contain grammatical or spelling errors. Kindly contact undersigned for clarification of any documentation item in question. History of Present Illness Chief Complaint: Abdominal pain Primary Care Provider: Tricia Nova MD History obtained from patient and records. Medical history significant for COPD, hypertension, ongoing tobacco abuse, anxiety/mood disorder. Last confinement in 24 right lower lobe pneumonia with empyema. Pleural fluid from VATS grew strep intermedius. Patient discharged on Augmentin course. 1 day history of achy mid abdominal pain with nausea, emesis. Initially constipated. Chest pain, no shortness of breath. Denies dysuria symptoms. Transient bradycardia in the 40s noted upon arrival at the ER. Medical History as above Surgical History : Endometrial ablation, hysteroscopy, BTL, back surgery, nail surgery Family History : Dementia, breast cancer, heart disease Personal/Social history : 1 pack daily, occasional EtOH intake, disabled Allergies Allergy/AdvReac Type Severity Reaction Status Date / Time procaine AdvReac Intermediate ANXIETY--SHAKING Verified 12/08/21 21:56 ALL OVER Home Medications Medication Instructions Recorded Confirmed Type lisinopril 10 mg tablet 10 mg PO DAILY 12/09/21 12/09/21 History sertraline 100 mg tablet 200 mg PO DAILY 12/09/21 12/09/21 History Past Med/Surg History Medical History Anemia Bronchitis COPD (chronic obstructive pulmonary disease) MDD (major depressive disorder) Protein calorie malnutrition Surgical History Fusion of lumbar spine 1995 Family History Brother Colorectal cancer Mother Breast cancer Other Alzheimer disease Heart disease Social History Smoking Status: Current every day smoker packs per day: 1; Years Smoked: 40; Second Hand Exposure: No; Do You Dip or Chew Tobacco: No; Tobacco Cessation Education Requested by Patient: No Hx Alcohol Use: No Hx Substance Use: No Preferred Language: Citizen Of [place] Communication Ability: Effective 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 House Required: No Beliefs That Will Affect Care: None marital status: Current Living Situation: Spouse current occupational status: disabled Other Information That Helps Us Care for You: No Feels Safe at Home: Yes Safety Concerns: Feels Safe At This Time Assistive Devices: Denture - Upper and Denture - Lower Review of Systems Review of Systems: As per HPI, all other systems reviewed and negative Physical Exam Physical Exam: GENERAL: Slightly uncomfortable, underweight, no respiratory distress SKIN: Normal color, warm HEENT: [place] palpebral conjunctivae, no ptosis, dry buccal mucosa NECK : Supple, no tenderness CHEST : Decreased breath sounds, no tenderness HEART : Bradycardic, no obvious murmurs ABDOMEN: Some distention, central abdominal tenderness EXTREMITIES : No LE swelling/tenderness, no other conspicuous deformities noted NEUROLOGIC : Coherent, no facial asymmetry, no other gross focality Results & Data Results & Data ([facility]) Vital Signs (Past 12 Hours) Vital Signs Temp Pulse Pulse Resp BP BP Pulse Ox 12/08/21 23:22 74 16 145/55 H 98 12/08/21 21:33 12/08/21 20:21 36.6 C 58 L 17 150/75 H 98 O2 Del Method 12/08/21 23:22 Room Air 12/08/21 21:33 Room Air 12/08/21 20:21 Room Air Laboratory Results Laboratory Results WBC 12.28 K/ul (4.8-10.8) H 12/08/21 21:33 RBC 4.87 M/uL (3.93-5.22) 12/08/21 21:33 Hgb 15.1 g/dl (12.0-16.0) 12/08/21 21:33 Hct 43.4 % (34.1-44.9) 12/08/21 21:33 MCV 89.1 fL (80.0-100.0) 12/08/21 21:33 MCH 31.0 pg (25.0-34.0) 12/08/21 21:33 MCHC 34.8 g/dL (32.0-36.0) 12/08/21: RDW Std Deviation 43.0 fL (36.4-46.3) 12/08/21: RDW Coeff of Miguel Ángel 13.1 % (11.5-14.5) 12/08/21: Plt Count 414 K/uL (130-400) H 12/08/21 21: MPV 9.1 fL (9.4-12.3) L 12/08/21 21: Immature Gran % (Auto) 0.2 % 12/08/21 21: Neut % (Auto) 89.9 % 12/08/21: Lymph % (Auto) 7.7 % 12/08/21: [place] % (Auto) 1.9 % 12/08/21: Eos % (Auto) 0.0 % 12/08/21: Baso % (Auto) 0.3 % 12/08/21: Neut # (Auto) 11.03 K/uL (1.4-6.5) H 12/08/21 21: Lymph # (Auto) 0.95 K/uL (1.2-3.4) L 12/08/21 21: [place] # (Auto) 0.23 K/uL (0.24-0.82) L 12/08/21 21: Eos # (Auto) 0.00 K/uL (0-0.50) 12/08/21: Baso # (Auto) 0.04 K/uL (0-0.2) 12/08/21: Immature Gran # (Auto) 0.03 K/uL (0.00-0.02) H 12/08/21 21: PT 11.2 Seconds (9.0-12.0) 12/08/21 21: INR 1.1 (0.9-1.1) 12/08/21: APTT 25.7 Seconds (21.0-31.0) 12/08/21 21: PTT Ratio 0.9 12/08/21 21: Sodium 141 mmol/L (136-145) 12/08/21: Potassium 3.6 mmol/L (3.5-5.1) 12/08/21 21:33 Chloride 100 mmol/L (98-107) 12/08/21 21:33 Carbon Dioxide 26 mmol/L (21-32) 12/08/21 21:33 Anion Gap 15 (3-11) H 12/08/21 21:33 BUN 32 mg/dl (6-23) H 12/08/21 21:33 Creatinine 0.87 mg/dl (0.6-1.2) 12/08/21 21:33 Est Cr Clr Drug Dosing 37.9 ml/min 12/08/21 21:33 Est GFR ( Amer) 82.8 ml/min 12/08/21 21:33 Est GFR (Non-Af Amer) 71.4 ml/min 12/08/21 21:33 BUN/Creatinine Ratio 36.8 (10-20) H 12/08/21 21:33 Glucose 130 mg/dl (70-99(Fasting)) H 12/08/21 21:33 Calcium 10.2 mg/dl (8.5-10.1) H 12/08/21 21:33 Magnesium 1.6 mg/dl (1.7-2.4) L 12/08/21 21:33 Total Bilirubin 0.5 mg/dl (0.2-1.0) 12/08/21 21:33 AST 20 U/L (13-39) 12/08/21 21:33 ALT 19 U/L (7-52) 12/08/21 21:33 Alkaline Phosphatase 82 U/L (34-104) 12/08/21 21:33 Troponin I High Sens 35.6 pg/ml (0-14) H D 12/08/21 23:19 Total Protein 8.0 gm/dl (6.0-8.3) 12/08/21 21:33 Albumin 4.7 gm/dl (3.4-5.0) 12/08/21 21:33 Globulin 3.3 gm/dl (2.5-4.0) 12/08/21 21:33 Albumin/Globulin Ratio 1.4 (0.9-2) 12/08/21 21:33 Lipase 5 U/L (11-82) L 12/08/21 21:[address] abdomen pelvis initial read: No dilated bowel is seen to suggest obstruction. Nonobstructing left renal calculus. The appendix is not clearlydelineated given lack of intraperitoneal fat. Postsurgical change related to prior laminectomyand fusion of the lumbar spine. Dilated gonadal veinswhich could be seen with pelvic congestion syndrome in the appropriate clinical scenario. EKG as per my interpretation : Rate 45, sinus bradycardia, normal axis, LVH, no ischemia
[2021-12-09] MEDS ORDERED: SODIUM CHLORIDE 0.45 % 1,000 ML IV STA (01:29)
[2021-12-09] MEDS ORDERED: KETOROLAC TROMETHAMINE 15 MG/ML VIAL IV PRN (02:46)
[2021-12-09] MEDS ORDERED: ACETAMINOPHEN 325 MG TAB PO PRN (02:46)
[2021-12-09] MEDS ORDERED: ALBUT/IPRATROP 3MG/0.5MG NEB 3 ML VIAL NEB PRN (02:46)
[2021-12-09] MEDS ORDERED: traMADol HCL 50 MG TABLET PO PRN (02:46)
[2021-12-09] MEDS ORDERED: PROMETHAZINE HCL 6.25 MG in SODIUM CHLORIDE 0.9% 50 ML IV PRN (02:46)
[2021-12-09] MEDS: HEPARIN SOD 5,000 UNIT/0.5 ML VIAL SQ SCH ×3 (05:52→21:06)
[2021-12-09 06:16] LABS: Appearance Urine Clear (Clear); Bacteria Urine Automated Negative (Negative); Bilirubin Urine Negative (Negative); Blood Urine 2+ (Negative); Cast Urine Automated 0 /lpf (0-5); Color Urine Yellow; Glucose Urine UA Negative (Negative); Ketones Urine 1+ (Negative); Leukocyte Esterase Urine Negative (Negative); Nitrite Urine Negative (Negative); Protein Urine 1+ (Negative); Specific Gravity Urine > 1.045 (1.000-1.030); Urobilinogen Urine Negative (Negative); pH Urine 6.5 (4.5-7.5)
[2021-12-09 06:41] LABS: Amphetamines+Metham, Urine Pos (Neg); Barbiturates, Urine Neg (Neg); Benzodiazepine, Urine Neg (Neg); Cocaine, Urine Neg (Neg); MDMA (Ecstacy), Urine Neg (Neg); Methadone, Urine Neg (Neg); Opiate, Urine Pos (Neg); Phencyclidine, Urine Neg (Neg)
[2021-12-09 06:51] LABS: Basophils # (auto) 0.05 K/uL (0-0.2); Basophils % (auto) 0.4 %; Hematocrit (blood only) 36.3 % (34.1-44.9); Hemoglobin 12.4 g/dl (12.0-16.0); Immature Granulocytes # (auto) 0.03 K/uL (0.00-0.02); Immature Granulocytes % (auto) 0.3 %; Lymphocytes # (auto) 2.21 K/uL (1.2-3.4); Lymphocytes % (auto) 18.7 %; Mean Corpuscular Hemoglobin 30.5 pg (25.0-34.0); Mean Corpuscular Hgb Conc 34.2 g/dL (32.0-36.0); Mean Corpuscular Volume 89.4 fL (80.0-100.0); Mean Platelet Volume 9.3 fL (9.4-12.3); Monocytes # (auto) 1.12 K/uL (0.24-0.82); Monocytes % (auto) 9.5 %; Neutrophils # (auto) 8.42 K/uL (1.4-6.5); Neutrophils % (auto) 71.1 %; Platelet Count 383 K/uL (130-400); RDW Coefficient of Variation 13.1 % (11.5-14.5); Red Blood Count 4.06 M/uL (3.93-5.22); White Blood Count 11.83 K/ul (4.8-10.8)
[2021-12-09 07:12] LABS: BUN Creatinine Ratio 29.9 (10-20); Calcium 8.3 mg/dl (8.5-10.1); Creatinine Clr Calc Pharmacy 46.2 ml/min; Est GFR (African American) 95.9 ml/min; Est GFR (Non-African American) 82.8 ml/min; Magnesium 1.8 mg/dl (1.7-2.4); Potassium 3.2 mmol/L (3.5-5.1)
--- NOTE | 2021-12-09 07:38 | CT Scan Report ---
CT OF THE ABDOMEN AND PELVIS WITH CONTRAST CLINICAL HISTORY: Abdominal pain, nausea and vomiting. COMPARISON STUDY: None. TECHNIQUE: Following IV administration of 93 mL of Optiray, axial images of the abdomen and pelvis we re obtained from the lung bases to the proximal femurs. Images were reviewed in the axial, sagittal, and coronal planes. IV contrast was administered without complication. Automated exposure control wa s utilized for the study. A dose lowering technique was utilized adhering to the principles of ALARA . CT DOSE: 209.78 mGy.cm FINDINGS: A 4 mm subpleural left lower lobe nodule is unchanged since screening CT of August 14, 2018. This is benign. No pneumatosis, free air or portal venous gas is present. Liver, spleen, adrenal glan ds, kidneys and pancreas are unremarkable. There is no hydronephrosis. There is no biliary or pancrea tic ductal dilatation. No evidence for a bowel obstruction. The appendix is not visualized. Evaluatio n is difficult given lack of contrast and paucity of intra-abdominal fat. Postoperative findings with in the lumbosacral spine are noted. There is no lymphadenopathy. Major vasculature is patent. IMPRESSION: 1. No acute process within the abdomen or pelvis. However, nonvisualization of the appendix given [place] of intra-abdominal fat and lack of oral contrast. Therefore, close clinical follow-up is recomme nded. If suspicion for acute appendicitis, a repeat CT of the abdomen and pelvis with IV and oral con trast might be considered. 2. No bowel obstruction. ACT 112: Negative or not required by law. Electronically signed by: Andrew Bustamante M.D. 12/09/2021 7:36 AM
[2021-12-09] MEDS ORDERED: POTASSIUM CHLORIDE CRTAB 20 MEQ TABCR PO STA (08:09)
[2021-12-09] MEDS: lisinopril 10 MG TAB PO SCH (08:43)
[2021-12-09] MEDS: SERTRALINE HCL 100 MG TABLET PO SCH (08:43)
[2021-12-09] MEDS: ONDANSETRON INJ 2 MG/ML 2 ML VIAL IV SCH ×2 (13:35→20:04)
--- NOTE | 2021-12-09 13:56 | Electrocardiogram Report ---
Test Reason : Blood Pressure : / mmHG Vent. Rate : 046 BPM Atrial Rate : 046 BPM P-R Int : 136 ms QRS Dur : 100 ms QT Int : 472 ms P-R-T Axes : 035 083 075 degrees QTc Int : 413 ms Sinus bradycardia Minimal voltage criteria for LVH, may be normal variant Cannot rule out Anterior infarct , age undetermined Abnormal ECG When compared with ECG of 01-JUN-2019 07:26, Vent. rate has decreased BY 46 BPM Confirmed by Mateo Reyes ([id number]) on 12/09/2021 1:56:14 PM Referred By: REFERRED SELF Confirmed By:Mateo Reyes
--- NOTE | 2021-12-09 14:08 | Electrocardiogram Report ---
Test Reason : Blood Pressure : / mmHG Vent. Rate : 099 BPM Atrial Rate : 099 BPM P-R Int : 152 ms QRS Dur : 094 ms QT Int : 384 ms P-R-T Axes : 075 095 064 degrees QTc Int : 492 ms Normal sinus rhythm Rightward axis Prolonged QT Nonspecific ST depression inferior and lateral leads Abnormal ECG When compared with ECG of 09-DEC-2021 00:29, (unconfirmed) No significant change was found Confirmed by Mateo Reyes ([id number]) on 12/09/2021 2:07:40 PM Referred By: REFERRED SELF Confirmed By:Mateo Reyes
--- NOTE | 2021-12-09 16:12 | Electrocardiogram Report ---
Test Reason : Blood Pressure : / mmHG Vent. Rate : 055 BPM Atrial Rate : 055 BPM P-R Int : 110 ms QRS Dur : 100 ms QT Int : 450 ms P-R-T Axes : 077 073 065 degrees QTc Int : 430 ms Sinus bradycardia with short FL Otherwise normal ECG When compared with ECG of 09-DEC-2021 00:30, Vent. rate has decreased BY 44 BPM Nonspecific T wave abnormality no longer evident in Anterior leads QT has shortened Confirmed by Mateo Reyes ([id number]) on 12/09/2021 4:12:07 PM Referred By: REFERRED SELF Confirmed By:Mateo Reyes
--- NOTE | 2021-12-09 17:17 | Hospitalist Progress Note ---
Date of Service December 09, 2021 Assessment & Plan (1) Abdominal pain: Plan: Presented with abdominal pain, increased temperature, nausea and vomiting Possible gastroenteritis secondary to viral infection Rule out UTI No more nausea vomiting early in the morning but later on has had another episode Did have some discomfort in the epigastrium Will give symptomatic treatment Troponin elevation/transient bradycardia secondary to discomfort Likely secondary to epigastric discomfort with nausea and vomiting Repeat troponin was not significantly elevated Echo of the heart showedLV systolic function is normal, EF 60 to 65%, LV wall motion is normal, grade 1 diastolic dysfunction, RV systolic function is normal, atria are normal, prolapse of the anterior mitral leaflet and no regurgitation 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 Heparin subcu Full code Admission and Anticipated Discharge Date Admission Date: December 09, 2021 Subjective 12/09/2021 The patient was seen and examined in telemetry unit She was admitted last night with acute abdominal pain associated with nausea and vomiting She has been feeling much better in the morning but has had an episode of nausea vomiting and diarrhea later on Following antiemetics she remains stable Denies any chest pain, palpitation or shortness of breath Review of Systems Review of Systems: All systems reviewed and are unremarkable except as noted below Cardiovascular: Additional Comments: No chest pain and/or palpitation Gastrointestinal: Minimal abdominal discomfort with nausea and vomiting resolved Physical Exam Physical Exam: Lying in bed without any apparent distress Constitutional: + ill appearing and + thin Eyes: PERRL, conjunctivae normal, anicteric sclerae ENMT: external ear and nose normal, oropharynx normal Neck: trachea midline, no thyromegaly Respiratory: no respiratory distress Auscultation: + diminished lung sounds and + crackles (Minimal crackles at the bases) Cardiovascular: Rate/Rhythm: regular rate and regular rhythm; not tachycardic Heart Sounds: normal S1 and normal S2; no murmur Extremities: no edema Gastrointestinal (Abdomen): Inspection/Auscultation: normal bowel sounds; abdomen not distended Percussion/Palpation: + abdomen tender (Mildly tender in the epigastrium) and abdomen soft Musculoskeletal: No acute arthritis in any joint Neurologic: Alert, awake and oriented x3. Generally very anxious and weak Lymphatic: no cervical or axillary lymphadenopathy Results & Data Results & Data ([facility]) Vital Signs (Past 12 Hours) Vital Signs Temp Pulse Resp BP Pulse Ox O2 Del Method 12/09/21 15:28 36.7 C 54 L 19 168/58 H 96 Room Air 12/09/21 11:06 36.8 C 58 L 17 147/60 H 97 Room Air 12/09/21 08:00 36.8 C 87 18 109/53 L 98 Room Air 12/09/21 05:50 36.8 C Laboratory Results Short CBC 12/08/21 12/09/21 Range/Units 21:33 06:17 WBC 12.28 H 11.83 H (4.8-10.8) K/ul Hgb 15.1 12.4 (12.0-16.0) g/dl Hct 43.4 36.3 (34.1-44.9) % Plt Count 414 H 383 (130-400) K/uL BMP 12/08/21 12/09/21 21:33 06:17 Sodium 141 136 Potassium 3.6 3.2 L Chloride 100 104 Carbon Dioxide 26 25 BUN 32 H 23 Creatinine 0.87 0.77 Glucose 130 H 111 H Calcium 10.2 H 8.3 L Liver Function 12/08/21 Range/Units 21:33 Total Bilirubin 0.5 (0.2-1.0) mg/dl AST 20 (13-39) U/L ALT 19 (7-52) U/L Alkaline Phosphatase 82 (34-104) U/L Albumin 4.7 (3.4-5.0) gm/dl Urine 12/09/21 Range/Units 05:53 Urine Color Yellow Urine Appearance Clear (Clear) Urine pH 6.5 (4.5-7.5) Ur Specific [place] > 1.045 H (1.000-1.030) Urine Protein 1+ H (Negative) Urine Glucose (UA) Negative (Negative) Medications Administered Current Inpatient Medications Acetaminophen (Acetaminophen 325 Mg Tab) 650 mg PO Q4H PRN PRN Reason: Pain or Fever Stop: 01/08/22 02:45 Albuterol (Albut/Ipratrop 3mg/0.5mg Neb 3 Ml Vial) 3 ml NEB Q2H PRN; Protocol PRN Reason: Wheezing Stop: 01/08/22 02:45 Heparin Sodium (Porcine) (Heparin Sod 5,000 Unit/0.5 Ml Vial) 5,000 units SQ Q8 MADIHA Stop: 01/08/22 05:59 Last Admin: 12/09/21 13:02 Dose: Not Given Promethazine HCl 12.5 mg/ (Sodium Chloride) 50.5 mls @ 201 mls/hr IV Q6H PRN PRN Reason: Nausea And Vomiting Stop: 01/08/22 02:45 Ketorolac Tromethamine (Ketorolac Tromethamine 15 Mg/Ml Vial) 15 mg IV Q6H PRN PRN Reason: Pain Stop: 12/14/21 02:45 Last Admin: 12/09/21 14:29 Dose: 15 mg Lisinopril (Lisinopril 10 Mg Tab) 10 mg PO DAILY MADIHA Stop: 01/08/22 08:59 Last Admin: 12/09/21 08:43 Dose: 10 mg Ondansetron HCl (Ondansetron Inj 2 Mg/Ml 2 Ml Vial) 4 mg IV Q6H MADIHA Stop: 01/08/22 13:29 Last Admin: 12/09/21 13:35 Dose: 4 mg Sertraline HCl (Sertraline Hcl 100 Mg Tablet) 200 mg PO DAILY MADIHA Stop: 01/08/22 08:59 Last Admin: 12/09/21 08:43 Dose: 200 mg Tramadol HCl (Tramadol Hcl 50 Mg Tablet) 25 - 50 mg PO Q4H PRN PRN Reason: Pain Stop: 01/08/22 02:45
[2021-12-09] MEDS: PROMETHAZINE HCL 12.5 MG in SODIUM CHLORIDE 0.9% 50 ML IV PRN (18:13)
[2021-12-10] MEDS: ONDANSETRON INJ 2 MG/ML 2 ML VIAL IV SCH ×4 (00:20→20:11)
[2021-12-10] MEDS: HEPARIN SOD 5,000 UNIT/0.5 ML VIAL SQ SCH ×3 (06:16→21:46)
[2021-12-10 08:06] LABS: Basophils % (auto) 0.8 %; Eosinophils # (auto) 0.08 K/uL (0-0.50); Eosinophils % (auto) 0.6 %; Hematocrit (blood only) 39.8 % (34.1-44.9); Hemoglobin 13.5 g/dl (12.0-16.0); Immature Granulocytes # (auto) 0.02 K/uL (0.00-0.02); Immature Granulocytes % (auto) 0.2 %; Lymphocytes # (auto) 2.67 K/uL (1.2-3.4); Lymphocytes % (auto) 21.3 %; Mean Corpuscular Hemoglobin 30.5 pg (25.0-34.0); Mean Corpuscular Hgb Conc 33.9 g/dL (32.0-36.0); Mean Platelet Volume 9.5 fL (9.4-12.3); Monocytes # (auto) 0.83 K/uL (0.24-0.82); Monocytes % (auto) 6.6 %; Neutrophils # (auto) 8.84 K/uL (1.4-6.5); Neutrophils % (auto) 70.5 %; Platelet Count 369 K/uL (130-400); RDW Coefficient of Variation 13.1 % (11.5-14.5); RDW Standard Deviation 42.9 fL (36.4-46.3); Red Blood Count 4.42 M/uL (3.93-5.22); White Blood Count 12.54 K/ul (4.8-10.8)
[2021-12-10 08:26] LABS: BUN Creatinine Ratio 23.3 (10-20); Calcium 8.9 mg/dl (8.5-10.1); Creatinine Clr Calc Pharmacy 71.7 ml/min; Est GFR (African American) 102.3 ml/min; Est GFR (Non-African American) 88.3 ml/min; Potassium 3.6 mmol/L (3.5-5.1)
[2021-12-10] MEDS: SERTRALINE HCL 100 MG TABLET PO SCH (08:39)
[2021-12-10] MEDS: lisinopril 10 MG TAB PO SCH (08:39)
[2021-12-10 09:03] LABS: Phosphorus 1.9 mg/dl (2.5-4.9)
[2021-12-10 09:20] LABS: Magnesium 1.7 mg/dl (1.7-2.4)
[2021-12-10] MEDS: amLODIPine BESYLATE 5 MG TAB PO SCH (10:08)
[2021-12-10] MEDS: HYDROmorphone INJ 0.5 MG/0.5 ML SYR IV PRN ×2 (10:41→21:45)
[2021-12-10] MEDS: PANTOprazole 40 MG in SYRINGE 0 ML IV SCH ×2 (10:50→20:11)
[2021-12-10] MEDS ORDERED: ALUMINUM/MAGNESIUM SUSP 30 ML UDC PO PRN (14:31)
--- NOTE | 2021-12-10 14:31 | Hospitalist Progress Note ---
Date of Service December 10, 2021 Assessment & Plan (1) Abdominal pain: Plan: Presented with abdominal pain, increased temperature, nausea and vomiting Possible gastroenteritis secondary to viral infection Rule out UTI No more nausea vomiting early in the morning but later on has had another episode Did have some discomfort in the epigastrium Will give symptomatic treatment CT scan with IV contrast last night did not show any significant findings We will add intravenous Protonix x2 Will add Maalox and or Mylanta and continue with supportive care Troponin elevation/transient bradycardia secondary to discomfort Likely secondary to epigastric discomfort with nausea and vomiting Repeat troponin was not significantly elevated Echo of the heart showedLV systolic function is normal, EF 60 to 65%, LV wall motion is normal, grade 1 diastolic dysfunction, RV systolic function is normal, atria are normal, prolapse of the anterior mitral leaflet and no regurgitation 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 Heparin subcu Full code Admission and Anticipated Discharge Date Admission Date: December 09, 2021 Subjective 12/09/2021 The patient was seen and examined in telemetry unit She was admitted last night with acute abdominal pain associated with nausea and vomiting She has been feeling much better in the morning but has had an episode of nausea vomiting and diarrhea later on Following antiemetics she remains stable Denies any chest pain, palpitation or shortness of breath 12/10/2021 The patient was seen and examined in telemetry unit She continues to have epigastric discomfort with nausea and vomiting Her blood pressure running high likely secondary to pain and apprehension Review of Systems Review of Systems: All systems reviewed and are unremarkable except as noted below Cardiovascular: Additional Comments: No chest pain and/or palpitation Gastrointestinal: Minimal abdominal discomfort with nausea and vomiting resolved Physical Exam Physical Exam: Lying in bed with anxiety and discomfort secondary to abdominal pain Constitutional: + ill appearing and + thin Eyes: PERRL, conjunctivae normal, anicteric sclerae ENMT: external ear and nose normal, oropharynx normal Neck: trachea midline, no thyromegaly Respiratory: no respiratory distress Auscultation: + diminished lung sounds and + crackles (Minimal crackles at the bases) Cardiovascular: Rate/Rhythm: regular rate and regular rhythm; not tachycardic Heart Sounds: normal S1 and normal S2; no murmur Extremities: no edema Gastrointestinal (Abdomen): Inspection/Auscultation: normal bowel sounds; abdomen not distended Percussion/Palpation: + abdomen tender (Mildly tender in the epigastrium) and abdomen soft Musculoskeletal: No acute arthritis in any joint Neurologic: Alert, awake and oriented x3. No focal sensory or no motor deficit appreciated Lymphatic: no cervical or axillary lymphadenopathy Results & Data Results & Data ([facility]) Vital Signs (Past 12 Hours) Vital Signs Temp Pulse Pulse Resp BP BP Pulse Ox 12/10/21 11:28 36.9 C 56 L 19 184/81 H 97 12/10/21 08:41 36.4 C L 52 L 21 189/69 H 96 12/10/21 07:48 36.8 C 46 L 16 179/74 H 188/66 H 95 12/10/21 05:10 36.9 C 52 L 16 170/72 H 97 12/10/21 02:46 Pulse Ox O2 Del Method O2 Del Method 12/10/21 11:28 Room Air 12/10/21 08:41 Room Air 12/10/21 07:48 Room Air 12/10/21 05:10 Room Air 12/10/21 02:46 95 Room Air Laboratory Results Short CBC 12/10/21 Range/Units 07:31 WBC 12.54 H (4.8-10.8) K/ul Hgb 13.5 (12.0-16.0) g/dl Hct 39.8 (34.1-44.9) % Plt Count 369 (130-400) K/uL BMP 12/10/21 07:31 Sodium 138 Potassium 3.6 Chloride 104 Carbon Dioxide 26 BUN 17 Creatinine 0.73 Glucose 106 H Calcium 8.9 Medications Administered Current Inpatient Medications Acetaminophen (Acetaminophen 325 Mg Tab) 650 mg PO Q4H PRN PRN Reason: Pain or Fever Stop: 01/08/22 02:45 Albuterol (Albut/Ipratrop 3mg/0.5mg Neb 3 Ml Vial) 3 ml NEB Q2H PRN; Protocol PRN Reason: Wheezing Stop: 01/08/22 02:45 Amlodipine Besylate (Amlodipine Besylate 5 Mg Tab) 5 mg PO QAM MADIHA Stop: 01/09/22 08:59 Last Admin: 12/10/21 10:08 Dose: 5 mg Heparin Sodium (Porcine) (Heparin Sod 5,000 Unit/0.5 Ml Vial) 5,000 units SQ Q8 MADIHA Stop: 01/08/22 05:59 Last Admin: 12/10/21 13:47 Dose: 5,000 units Hydromorphone HCl (Hydromorphone Inj 0.5 Mg/0.5 Ml Syr) 0.25 mg IV Q6H PRN PRN Reason: Pain Stop: 12/24/21 10:26 Last Admin: 12/10/21 10:41 Dose: 0.25 mg Promethazine HCl 12.5 mg/ (Sodium Chloride) 50.5 mls @ 201 mls/hr IV Q6H PRN PRN Reason: Nausea And Vomiting Stop: 01/08/22 02:45 Last Infusion: 12/09/21 18:37 Dose: Infused Pantoprazole Sodium 40 mg/ (Syringe) 10 mls @ 5 mls/min IV BID MADIHA Stop: 01/09/22 10:29 Last Admin: 12/10/21 10:50 Dose: 5 mls/min Ketorolac Tromethamine (Ketorolac Tromethamine 15 Mg/Ml Vial) 15 mg IV Q6H PRN PRN Reason: Pain Stop: 12/14/21 02:45 Last Admin: 12/09/21 14:29 Dose: 15 mg Lisinopril (Lisinopril 10 Mg Tab) 10 mg PO DAILY MADIHA Stop: 01/08/22 08:59 Last Admin: 12/10/21 08:39 Dose: 10 mg Ondansetron HCl (Ondansetron Inj 2 Mg/Ml 2 Ml Vial) 4 mg IV Q6H MADIHA Stop: 01/08/22 13:29 Last Admin: 12/10/21 13:47 Dose: 4 mg Sertraline HCl (Sertraline Hcl 100 Mg Tablet) 200 mg PO DAILY MADIHA Stop: 01/08/22 08:59 Last Admin: 12/10/21 08:39 Dose: 200 mg Tramadol HCl (Tramadol Hcl 50 Mg Tablet) 25 - 50 mg PO Q4H PRN PRN Reason: Pain Stop: 01/08/22 02:45
--- NOTE | 2021-12-10 16:44 | Electrocardiogram Report ---
Test Reason : Blood Pressure : / mmHG Vent. Rate : 049 BPM Atrial Rate : 049 BPM P-R Int : 144 ms QRS Dur : 094 ms QT Int : 458 ms P-R-T Axes : 059 074 065 degrees QTc Int : 413 ms Poor data quality, interpretation may be adversely affected Sinus bradycardia Otherwise normal ECG When compared with ECG of 09-DEC-2021 12:10, No significant change was found Confirmed by Nav Lassiter ([id number]) on 12/10/2021 4:44:33 PM Referred By: REFERRED SELF Confirmed By:Nav Lassiter
[2021-12-11] MEDS: ONDANSETRON INJ 2 MG/ML 2 ML VIAL IV SCH ×3 (01:57→13:59)
[2021-12-11] MEDS: HEPARIN SOD 5,000 UNIT/0.5 ML VIAL SQ SCH ×2 (06:38→13:59)
[2021-12-11 07:48] LABS: Basophils # (auto) 0.09 K/uL (0-0.2); Basophils % (auto) 0.9 %; Eosinophils # (auto) 0.05 K/uL (0-0.50); Eosinophils % (auto) 0.5 %; Hematocrit (blood only) 42.5 % (34.1-44.9); Hemoglobin 14.5 g/dl (12.0-16.0); Immature Granulocytes # (auto) 0.02 K/uL (0.00-0.02); Immature Granulocytes % (auto) 0.2 %; Lymphocytes # (auto) 2.78 K/uL (1.2-3.4); Lymphocytes % (auto) 28.1 %; Mean Corpuscular Hemoglobin 30.3 pg (25.0-34.0); Mean Corpuscular Hgb Conc 34.1 g/dL (32.0-36.0); Mean Corpuscular Volume 88.9 fL (80.0-100.0); Mean Platelet Volume 9.4 fL (9.4-12.3); Monocytes # (auto) 0.74 K/uL (0.24-0.82); Monocytes % (auto) 7.5 %; Neutrophils # (auto) 6.23 K/uL (1.4-6.5); Neutrophils % (auto) 62.8 %; Platelet Count 344 K/uL (130-400); RDW Coefficient of Variation 12.6 % (11.5-14.5); RDW Standard Deviation 41.2 fL (36.4-46.3); Red Blood Count 4.78 M/uL (3.93-5.22); White Blood Count 9.91 K/ul (4.8-10.8)
[2021-12-11 08:11] LABS: Albumin Globulin Ratio 1.5 (0.9-2); Albumin Level 3.8 gm/dl (3.4-5.0); BUN Creatinine Ratio 21.3 (10-20); Bilirubin,Total 0.6 mg/dl (0.2-1.0); Creatinine Clr Calc Pharmacy 69.8 ml/min; Est GFR (Non-African American) 85.4 ml/min; Globulin 2.6 gm/dl (2.5-4.0); Potassium 3.3 mmol/L (3.5-5.1); Total Protein 6.4 gm/dl (6.0-8.3)
[2021-12-11] MEDS: lisinopril 10 MG TAB PO SCH (08:14)
[2021-12-11] MEDS: amLODIPine BESYLATE 5 MG TAB PO SCH (08:14)
[2021-12-11] MEDS: PANTOprazole 40 MG in SYRINGE 0 ML IV SCH (08:14)
[2021-12-11] MEDS: SERTRALINE HCL 100 MG TABLET PO SCH (08:15)
[2021-12-11] MEDS: PROMETHAZINE HCL 12.5 MG in SODIUM CHLORIDE 0.9% 50 ML IV PRN (10:16)
[2021-12-11 11:21] LABS: Amphetamine Urine, Confirm 942 ng/mL (<250); Codeine Urine NEGATIVE ng/mL (<50); Hydrocodone Urine NEGATIVE ng/mL (<50); Hydromor Urine NEGATIVE ng/mL (<50); Marijuana Quant, GCMS Urine 584 ng/mL (<5); Methamphetamine, Ur Confirm 326 ng/mL (<250); Morphine Urine 3450 ng/mL (<50); Norhydrocodone Conf Ur NEGATIVE ng/mL (<50); Noroxycodone Urine NEGATIVE ng/mL (<50); Oxycodone Urine NEGATIVE ng/mL (<50); Oxymorph Urine NEGATIVE ng/mL (<50)
--- NOTE | 2021-12-11 12:02 | Gastrointestinal Consultation ---
Date of Consultation December 11, 2021 Assessment & Plan (1) Nausea and vomiting: (2) Abdominal pain: (3) Weight loss: Pt is a 61 yo female seen for chronic n/v, weight loss, on exam having epigastric and RUQ abd tenderness. CT abd/pelvis w contrast wo acute findings. Family hx + for pancreas ca (mom) and colon ca (brother). Colonoscopy 2019 normal. She does use cannabis which she reports helps w n/v, abd pain. Also uses significant amt of Advil for back pain. DDx: PUD, gastritis, gastroparesis, cannabis induced hyperemesis, malignancy. - Recommend EGD / EUS and repeat Colonoscopy evaluations. She is agreeable to this but would like to have these scheduled in outpt setting. Wants to go home today. Will relay to her hospitalist - PPI BID coverage ; can add Carafate 1g BID - Antiemetics prn - Recommend senior architect/design manager eval for dietary supplement recommendations - Avoid NSAIDs, should discuss alternatives for back pain management - Avoid constipation. May use Miralax 17g daily as bowel regimen Supervising Physician Co-Signing Physician Notes I performed a history and physical examination of the patient today, including specifically on physical exam - soft abdomen. I have discussed the patient's management with the advanced practitioner. Please refer to the nurse practitioner's note for the documented findings and plan of care. Colonoscopy and EUS as OP. Symptomatic treatment for now. Recall GI if needed. History of Present Illness Reason for Consultation: Abd pain, n/v Requesting Physician: Dr. Ya Landeros Attending Physician: Dr. Christa Valdez History of Present Illness Pt is a 61 yo female, who is admitted for increased abd pain, n/v symptoms. Pt reports she's been having nausea which starts when she wakes up in the morning for many years. She would drink 2 cans of carnation breakfast, then within 2 hours, would vomit them up. She is having associated epigastric and RUQ abd pain as well. Has constipation, but bowels moving with OTC stool softeners. Denies rectal bleeding. She started losing weight about 2 yrs ago. Was previously over 100lbs then been at 80+ lbs in the last 2 years, unable to gain weight back. She smokes tobacco and marijuana. States marijuana helps with nausea and pain. She also takes 8 Advils 3 days a week for back pain. Mother w hx of pancreatic ca in 80s. Brother w hx of colon ca in his 50s. Colonoscopy [address] abd/pelvis w contrast 12/08/2021: 1. No acute process within the abdomen or pelvis. However, nonvisualization of the appendix given paucity of intra-abdominal fat and lack of oral contrast. Therefore, close clinical follow-up is recommended. If suspicion for acute appendicitis, a repeat CT of the abdomen and pelvis with IV and oral contrast might be considered. 2. No bowel obstruction. LFTs, lipase normal. Troponin elevated Allergies Allergy/AdvReac Type Severity Reaction Status Date / Time procaine AdvReac Intermediate ANXIETY--SHAKING Verified 12/08/21 21:56 ALL OVER Home Medications Medication Instructions Recorded Confirmed Type lisinopril 10 mg tablet 10 mg PO DAILY 12/09/21 12/09/21 History sertraline 100 mg tablet 200 mg PO DAILY 12/09/21 12/09/21 History amlodipine 5 mg tablet (Norvasc) 5 mg PO QAM #30 tabs 12/11/21 Rx ondansetron 4 mg disintegrating 4 mg PO Q8H 10 days #30 tabs 12/11/21 Rx tablet pantoprazole 40 mg granules 40 mg PO BID #60 ea 12/11/21 Rx delayed-release for susp in packet (Protonix) sucralfate 1 gram tablet (Carafate) 1 g PO BID 4 weeks #56 tabs 12/11/21 Rx Patient History Medical History Anemia Bronchitis COPD (chronic obstructive pulmonary disease) MDD (major depressive disorder) Protein calorie malnutrition Surgical History Fusion of lumbar spine 1995 Family History Brother Colorectal cancer Mother Breast cancer Other Alzheimer disease Heart disease Social History Smoking Status: Current every day smoker packs per day: 1; Years Smoked: 40; Second Hand Exposure: No; Hx Alcohol Use: No Hx Substance Use: No Preferred Language: Israeli Communication Ability: Effective Panelbeater Required: No Beliefs That Will Affect Care: None marital status: Current Living Situation: Spouse current occupational status: disabled How many Children do You have: 2 Feels Safe at Home: Yes Assistive Devices: None Review of Systems Review of Systems: All systems reviewed & are unremarkable except as noted in HPI & below Physical Exam Constitutional: + cachectic, cooperative and comfortable Eyes: PERRL, conjunctivae normal, anicteric sclerae ENMT: external ear and nose normal, oropharynx normal Respiratory: normal respiratory effort, lungs clear to auscultation Cardiovascular: RRR, no murmur, no edema Gastrointestinal (Abdomen): Soft, TTP epigastric and RUQ areas Skin: no rashes, warm and dry no jaundice Psychiatric: A+Ox3, euthymic affect Lymphatic: no lymphedema Results & Data ([facility]) Vital Signs (Past 12 Hours) Vital Signs Temp Pulse Resp BP BP Pulse Ox O2 Del Method 12/11/21 08:00 60 12/11/21 08:03 36.5 C 63 18 159/80 H 96 Room Air 12/11/21 04:00 36.8 C 70 17 138/75 94 Room Air 12/10/21 23:58 36.8 C 73 16 106/66 96 Room Air
--- NOTE | 2021-12-11 13:25 | Hospitalist Progress Note ---
Date of Service December 11, 2021 Assessment & Plan (1) Abdominal pain: Plan: Presented with abdominal pain, increased temperature, nausea and vomiting Possible gastroenteritis secondary to viral infection Rule out UTI No more nausea vomiting early in the morning but later on has had another episode Did have some discomfort in the epigastrium Will give symptomatic treatment CT scan with IV contrast last night did not show any significant findings We will add intravenous Protonix x2 Will add Maalox and or Mylanta and continue with supportive care Appreciate GI input and recommendation Clinically much better today and she wants to go home She has been ambulating in the room and things she does not need any PT and OT evaluation for discharge She was strongly advised to avoid any NSAID's Troponin elevation/transient bradycardia secondary to discomfort Likely secondary to epigastric discomfort with nausea and vomiting Repeat troponin was not significantly elevated Echo of the heart showedLV systolic function is normal, EF 60 to 65%, LV wall motion is normal, grade 1 diastolic dysfunction, RV systolic function is normal, atria are normal, prolapse of the anterior mitral leaflet and no regurgitation Doubt any ACS electronic device monitor noted-no significant arrhythmias No more chest pain and/or bloody arrhythmia COPD, symptoms at baseline Denies any shortness of breath and wheezing Hypertension, slightly elevated We will monitor Ongoing tobacco abuse Hyperglycemia rule out DM Malnutrition low BMI DVT prophylaxis. Heparin subcu Full code Admission and Anticipated Discharge Date Admission Date: December 09, 2021 Subjective 12/09/2021 The patient was seen and examined in telemetry unit She was admitted last night with acute abdominal pain associated with nausea and vomiting She has been feeling much better in the morning but has had an episode of nausea vomiting and diarrhea later on Following antiemetics she remains stable Denies any chest pain, palpitation or shortness of breath 12/10/2021 The patient was seen and examined in telemetry unit She continues to have epigastric discomfort with nausea and vomiting Her blood pressure running high likely secondary to pain and apprehension 12/11/2021 The patient was seen and examined in telemetry unit She continues to have epigastric discomfort with nausea Denies any chest pain and/or palpitation She wants to go home this afternoon She was evaluated by GI today Review of Systems Review of Systems: All systems reviewed and are unremarkable except as noted below Cardiovascular: Additional Comments: No chest pain and/or palpitation Gastrointestinal: Minimal abdominal discomfort with nausea and vomiting resolved Physical Exam Physical Exam: Has been feeling much better today without any distress at rest Constitutional: + ill appearing and + thin Eyes: PERRL, conjunctivae normal, anicteric sclerae ENMT: external ear and nose normal, oropharynx normal Neck: trachea midline, no thyromegaly Respiratory: no respiratory distress Auscultation: + diminished lung sounds and + crackles (Minimal crackles at the bases) Cardiovascular: Rate/Rhythm: regular rate and regular rhythm; not tachycardic Heart Sounds: normal S1 and normal S2; no murmur Extremities: no edema Gastrointestinal (Abdomen): Inspection/Auscultation: normal bowel sounds; abdomen not distended Percussion/Palpation: + abdomen tender (Mildly tender in the epigastrium) and abdomen soft Musculoskeletal: No acute arthritis in any joint Neurologic: normal touch/pain/proprioception, CN's II-XI intact bilaterally and moves all extremities Psychiatric: A+Ox3, euthymic affect Lymphatic: no cervical or axillary lymphadenopathy Results & Data Results & Data ([facility]) Vital Signs (Past 12 Hours) Vital Signs Temp Pulse Resp BP BP Pulse Ox O2 Del Method 12/11/21 12:18 36.5 C 77 17 169/58 H 98 Room Air 12/11/21 08:00 60 12/11/21 08:03 36.5 C 63 18 159/80 H 96 Room Air 12/11/21 04:00 36.8 C 70 17 138/75 94 Room Air Laboratory Results Short CBC 12/11/21 Range/Units 07:11 WBC 9.91 (4.8-10.8) K/ul Hgb 14.5 (12.0-16.0) g/dl Hct 42.5 (34.1-44.9) % Plt Count 344 (130-400) K/uL [facility] 12/11/21 07:11 Sodium 136 Potassium 3.3 L Chloride 102 Carbon Dioxide 28 BUN 16 Creatinine 0.75 Glucose 96 Calcium 9.0 Liver Function 12/11/21 Range/Units 07:11 Total Bilirubin 0.6 (0.2-1.0) mg/dl AST 18 (13-39) U/L ALT 19 (7-52) U/L Alkaline Phosphatase 65 (34-104) U/L Albumin 3.8 (3.4-5.0) gm/dl Medications Administered Current Inpatient Medications Acetaminophen (Acetaminophen 325 Mg Tab) 650 mg PO Q4H PRN PRN Reason: Pain or Fever Stop: 01/08/22 02:45 Last Admin: 12/10/21 20:17 Dose: 650 mg Al Hydrox/Mg Hydrox/Simethicone (Aluminum/Magnesium Susp 30 Ml Udc) 15 ml PO Q6H PRN PRN Reason: Dyspepsia Stop: 01/09/22 14:30 Last Admin: 12/11/21 09:30 Dose: 15 ml Albuterol (Albut/Ipratrop 3mg/0.5mg Neb 3 Ml Vial) 3 ml NEB Q2H PRN; Protocol PRN Reason: Wheezing Stop: 01/08/22 02:45 Amlodipine Besylate (Amlodipine Besylate 5 Mg Tab) 5 mg PO QAM MADIHA Stop: 01/09/22 08:59 Last Admin: 12/11/21 08:14 Dose: 5 mg Heparin Sodium (Porcine) (Heparin Sod 5,000 Unit/0.5 Ml Vial) 5,000 units SQ Q8 MADIHA Stop: 01/08/22 05:59 Last Admin: 12/11/21 06:38 Dose: 5,000 units Hydromorphone HCl (Hydromorphone Inj 0.5 Mg/0.5 Ml Syr) 0.25 mg IV Q6H PRN PRN Reason: Pain Stop: 12/24/21 10:26 Last Admin: 12/10/21 21:45 Dose: 0.25 mg Promethazine HCl 12.5 mg/ (Sodium Chloride) 50.5 mls @ 201 mls/hr IV Q6H PRN PRN Reason: Nausea And Vomiting Stop: 01/08/22 02:45 Last Infusion: 12/11/21 10:22 Dose: Infused Pantoprazole Sodium 40 mg/ (Syringe) 10 mls @ 5 mls/min IV BID [facility] Stop: 01/09/22 10:29 Last Admin: 12/11/21 08:14 Dose: 5 mls/min Lisinopril (Lisinopril 10 Mg Tab) 10 mg PO DAILY [facility] Stop: 01/08/22 08:59 Last Admin: 12/11/21 08:14 Dose: 10 mg Ondansetron HCl (Ondansetron Inj 2 Mg/Ml 2 Ml Vial) 4 mg IV Q6H MADIHA Stop: 01/08/22 13:29 Last Admin: 12/11/21 08:14 Dose: 4 mg Sertraline HCl (Sertraline Hcl 100 Mg Tablet) 200 mg PO DAILY MADIHA Stop: 01/08/22 08:59 Last Admin: 12/11/21 08:15 Dose: 200 mg Tramadol HCl (Tramadol Hcl 50 Mg Tablet) 25 - 50 mg PO Q4H PRN PRN Reason: Pain Stop: 01/08/22 02:45 Last Admin: 12/10/21 20:54 Dose: 50 mg
[2021-12-11] MEDS ORDERED: POTASSIUM CHLORIDE CRTAB 20 MEQ TABCR PO STA (13:29)
[2021-12-11] MEDS ORDERED: POTASSIUM PHOS 3 MMOL/1 ML INFUSION IV STA (13:29)
[2021-12-11] MEDS ORDERED: POTASSIUM PHOSPHATE 21 MMOL in DEXTROSE 5% 500 ML IV ONE (13:45)
--- NOTE | 2021-12-11 18:29 | Discharge Summary ---
Date of Service December 11, 2021 Admission HPI Per Admitting Provider History obtained from patient and records. Medical history significant for COPD, hypertension, ongoing tobacco abuse, anxiety/mood disorder. Last confinement in 23 right lower lobe pneumonia with empyema. Pleural fluid from VATS grew strep intermedius. Patient discharged on Augmentin course. 1 day history of achy mid abdominal pain with nausea, emesis. Initially constipated. Chest pain, no shortness of breath. Denies dysuria symptoms. Transient bradycardia in the 40s noted upon arrival at the ER. Medical History as above Surgical History : Endometrial ablation, hysteroscopy, BTL, back surgery, nail surgery Family History : Dementia, breast cancer, heart disease Personal/Social history : 1 pack daily, occasional EtOH intake, disabled Admission Exam Per Admitting Provider Physical Exam: GENERAL: Slightly uncomfortable, underweight, no respiratory distress SKIN: Normal color, warm HEENT: Fisher palpebral conjunctivae, no ptosis, dry buccal mucosa NECK : Supple, no tenderness CHEST : Decreased breath sounds, no tenderness HEART : Bradycardic, no obvious murmurs ABDOMEN: Some distention, central abdominal tenderness EXTREMITIES : No LE swelling/tenderness, no other conspicuous deformities noted NEUROLOGIC : Coherent, no facial asymmetry, no other gross focality Principal Diagnosis Abdominal/epigastric pain likely secondary to gastroenteritis, will have an outpatient endoscopy, mildly elevated troponin without any ACS, COPD, hypertension, malnutrition Discharge Exam Has been feeling much better today without any distress at rest Constitutional + ill appearing and + thin Eyes PERRL, conjunctivae normal, anicteric sclerae ENMT external ear and nose normal, oropharynx normal Neck trachea midline, no thyromegaly Respiratory no respiratory distress Auscultation: + diminished lung sounds and + crackles (Minimal crackles at the bases) Cardiovascular Rate/Rhythm: regular rate and regular rhythm; not tachycardic Heart Sounds: normal S1 and normal S2; no murmur Extremities: no edema Gastrointestinal (Abdomen) Inspection/Auscultation: normal bowel sounds; abdomen not distended Percussion/Palpation: + abdomen tender (Mildly tender in the epigastrium) and abdomen soft Neurologic normal touch/pain/proprioception, CN's II-XI intact bilaterally and moves all extremities Psychiatric A+Ox3, euthymic affect Lymphatic no cervical or axillary lymphadenopathy Discharge Data Allergies Allergy/AdvReac Type Severity Reaction Status Date / Time procaine AdvReac Intermediate ANXIETY--SHAKING Verified 12/08/21 21:56 ALL OVER Consultations 12/09/21 00:40 ED Decision to Admit Stat 12/11/21 10:33 Consult Gastroenterology Routine Ordered Studies 12/08/21 21:33 CT abd pelvis IV con only Urgent Hospital Course (1) Abdominal pain: Presented with abdominal pain, increased temperature, nausea and vomiting Possible gastroenteritis secondary to viral infection Rule out UTI No more nausea vomiting early in the morning but later on has had another episode Did have some discomfort in the epigastrium Will give symptomatic treatment CT scan with IV contrast last night did not show any significant findings We will add intravenous Protonix x2 Will add Maalox and or Mylanta and continue with supportive care Appreciate GI input and recommendation Clinically much better today and she wants to go home She has been ambulating in the room and things she does not need any PT and OT evaluation for discharge She was strongly advised to avoid any NSAID's Troponin elevation/transient bradycardia secondary to discomfort Likely secondary to epigastric discomfort with nausea and vomiting Repeat troponin was not significantly elevated Echo of the heart showedLV systolic function is normal, EF 60 to 65%, LV wall motion is normal, grade 1 diastolic dysfunction, RV systolic function is normal, atria are normal, prolapse of the anterior mitral leaflet and no regurgitation Doubt any ACS bag bailer noted-no significant arrhythmias No more chest pain and/or bloody arrhythmia COPD, symptoms at baseline Denies any shortness of breath and wheezing Hypertension, slightly elevated We will monitor Ongoing tobacco abuse Hyperglycemia rule out DM Malnutrition low BMI DVT prophylaxis. Heparin subcu Full code Total Time Total Time Spent Total Time Spent (In Minutes): 45 minutes Discharge Plan Discharge Items Patient Disposition: Home - Self-Care Reason For Visit: TROP ELEV, TRANSIENT BRADYCARDIA Discharge Diagnosis: Abdominal/epigastric pain likely secondary to gastroenteritis, will have an outpatient endoscopy, mildly elevated troponin without any ACS, COPD, hypertension, malnutrition Condition on Discharge: Fair Activity: Resume your previous activity Non-emergency contact: Primary Care Provider Call non-emergency contact if: you have any medication questions and your symptoms worsen Follow-up/Referrals: Tricia Nova MD [Primary Care Provider] - (Date & Time 12/17/2021 2:20 PM Provider Cynthia Alvarez PA-C Department [facility] ) Diet: Regular Addtl Attending Provider Instructions: Please take precautions to avoid fall Take your medications as advised Follow the instructions of dietitian Please give appointment with your healthcare providers [facility] will call you for an outpatient endoscopic examination Do not take any NSAID's like ibuprofen, Motrin, naproxen, etc Can try [id number] stool softener Pending Studies at Discharge: No Stand-Alone Forms: My [facility], Smoking Cessation Medications and DC Order Prescriptions: New amlodipine [Norvasc] 5 mg Tablet 5 mg PO QAM Qty: 30 0RF pantoprazole [Protonix] [address] for susp in packet 40 mg PO BID Qty: 60 0RF sucralfate [Carafate] 1 gram tablet 1 g PO BID 28 Days Qty: 56 0RF ondansetron 4 mg tablet,disintegrating 4 mg PO Q8H 10 Days Qty: 30 0RF Continued sertraline 100 mg tablet 200 mg PO DAILY lisinopril 10 mg Tablet 10 mg PO DAILY Discharge Orders: Discharge Order (Routine); Ordered 12/11/21 Ordered By: Ya Ramirez/Other Patient Handouts: Soft [place] Diet Dc Admission Data Admit Date/Time: 12/09/21 01:23 Attending Provider: Ya Landeros Admit Provider: Marlon Donohue Primary Care Provider: Tricia Nova Other Providers: Marlon Donohue ; Kade Quigley ; Elvira Contreras ; Fracisco Reese ; Bonny Albert ; Spenser Estes ; Delon Bonilla ; Last Nunez ; Shaheen Graff ; Liz Reyes ; Swetha Ferguson ; Areli Bain ; Cheyanne Philippe ; Christa Valdez Other Interventions: Discharge Summary Assessment (RN) Last Done: 12/11/21 17:16
== END 2021-12-11 17:43 | disposition home or self-care (01) ==
LOC: ED 20:19 → 2S 12-09 01:23 → INTOOBSV 12-09 01:23 → 2S 12-09 02:17
DX: J44.9 Chronic obstructive pulmonary disease, unspecified; Z68.1 Body mass index [BMI] 19.9 or less, adult; Z79.899 Other long term (current) drug therapy; R10.13 Epigastric pain; E46 Unspecified protein-calorie malnutrition; R00.1 Bradycardia, unspecified; R79.89 Other specified abnormal findings of blood chemistry; R11.2 Nausea with vomiting, unspecified; Z88.4 Allergy status to anesthetic agent; I10 Essential (primary) hypertension; R73.9 Hyperglycemia, unspecified

== ENCOUNTER 2022-08-13 15:20 | Observation (INO) ==
[2022-08-13] MEDS ORDERED: VANCOMYCIN HCL 1,000 MG in SODIUM CHLORIDE 0.9% 500 ML IV ONE (15:57)
[2022-08-13] MEDS ORDERED: VANCOMYCIN CONSULT ACTIVE PRN ×2 (15:57→18:25)
[2022-08-13] MEDS ORDERED: SODIUM CHLORIDE 0.9% 1000ML 1,000 ML IV ONE (15:58)
--- NOTE | 2022-08-13 15:58 | Emergency Department Note ---
Impression & Plan Abnormal MRI, lumbar spine, Back pain ED Provider Note NAME: CHUCKY VARELA AGE: 61 SEX: F : 1960 ARRIVES VIA: Walk-In INFORMANT: Patient ED PROVIDER(S): Roverto Bobo DO CHIEF COMPLAINT: Osteomyelitis HPI: Patient is a 61-year-old female who presents the ER for lower back pain. She was seen and evaluated here over a week ago. She was offered admission but declined and to go home. She was followed up with her PCP and had an MRI inflammatory changes of the lower thoracic spine with surrounding paravertebral soft tissue most pronounced at T10-T11 associated with edema and enhancement. Lack of fluid signal enhancement at the intervertebral disc and lack of Osteov ision favors degenerative disc disease of acute discitis/osteo. Osteo still could be considered per the read for MRI. No chest pain or shortness of breath. No nausea vomiting or diarrhea. No dysuria urgency or frequency. No other exacerbating or remitting factors. Denies any weakness or numbness in the arms or legs. Last spine surgery was back in [address] Bean. PAST MEDICAL HISTORY:See Below PAST SURGICAL HISTORY:See Below FAMILY HISTORY:See Below SOCIAL HISTORY:See Below HOME MEDICATIONS:See Below ALLERGIES:See Below VITALS:See Below PHYSICAL EXAMINATION: GENERAL: Sitting up in bed, alert, well appearing, well nourished, no distress, non-toxic EYE EXAM: normal conjunctiva. OROPHARYNX: no exudate, no erythema, lips, buccal mucosa, and tongue normal and mucous membranes are moist NECK: supple, no nuchal rigidity, no adenopathy, non-tender LUNGS: Clear to auscultation. Normal chest wall mechanics HEART: no murmurs, S1 normal and S2 normal ABDOMEN: abdomen soft, non-tender, normo-active bowel sounds, no masses, no rebound or guarding. UPPER EXTREMITIES: upper extremities are grossly normal. LOWER EXTREMITIES: Flexion and extension of the hips, knees, ankles, and EHL 5/5 bilaterally. Gross sensation is intact. DPs are 2/4 bilateral. [Patellar and Achilles reflexes are 2/4 bilateral] NEURO EXAM: Normal sensorium, cranial nerves II-XII grossly intact, normal speech, no gross weakness of arms, no gross weakness of legs. MEDICAL DECISION MAKING: Patient is a 61-year-old female who presents ER for above-stated complaint. External records were reviewed. IV was established blood was obtained. Patient was referred in from the outpatient PCP following having an MRI with abnormal thoracic spine region. They favor this likely chronic versus osteo. There is slight elevation sed and CRP. Patient denies any fevers. Neurologically intact. Labs show mild leukocytosis of 12.8 thousand. No significant anemia. ESR was slightly elevated. BMP with LFTs lactic acid was unremarkable. Pro-Frantz negative. UA clean. Cultures obtained. COVID-negative. Patient was given IV vancomycin. Updated bedside. She was given IV morphine. Discussed with the hospitalist for need for further evaluation management and treatment Triage Nursing notes reviewed. Limited review of prior medical records performed Vital Signs: reviewed and remarkable for HTN Differential diagnosis: Differential diagnoses includes but is not limited to lumbar radiculopathy, kidney stone, muscle strain, facture, cauda equina, mass, and disc herniation. ER treatment provided: See below Diagnostics interpreted by me include EKG and cardiac monitoring as listed below: -Cardiac Monitoring: An order was placed for continuous cardiac monitoring. The monitor shows a rate of 90 with sinus rhythm. -ECG: none -Laboratory studies:Interpreted by me as stated above in MDM and shown below. Imaging studies: Xrays: As interpreted by me:none CTs show: none MRI: Outside records were reviewed which showed a possible osteomyelitis Consultation(s): As described in MDM Procedures:none Critical Care: None Past Med/Surg History Medical History Anemia Bronchitis COPD (chronic obstructive pulmonary disease) MDD (major depressive disorder) Protein calorie malnutrition Surgical History Fusion of lumbar spine 1995 Family History Brother Colorectal cancer Mother Breast cancer Other Alzheimer disease Heart disease Social History Smoking Status: Current every day smoker packs per day: 1; Second Hand Exposure: Yes; Do You Dip or Chew Tobacco: No; Tobacco Cessation Education Requested by Patient: No Hx Alcohol Use: No Hx Substance Use: Yes Last Used Substance: Just Prior to Arrival Preferred Language: Urdu Communication Ability: Effective Pourer Off Required: No Beliefs That Will Affect Care: None marital status: Current Living Situation: Spouse current occupational status: disabled How many Children do You have: 2 Other Information That Helps Us Care for You: No Feels Safe at Home: Yes Safety Concerns: Feels Safe At This Time Assistive Devices: Denture - Upper and Denture - Lower Allergies Allergies Allergy/AdvReac Type Severity Reaction Status Date / Time doxycycline Allergy Mild itching Verified 08/13/22 16:07 procaine AdvReac Intermediate ANXIETY--SHAKING Verified 08/13/22 16:07 ALL OVER Home Meds Home Medications Medication Instructions Recorded Confirmed mirtazapine 15 mg tablet 15 mg PO HS 08/13/22 08/13/22 pantoprazole 40 mg tablet,delayed 40 mg PO DAILY 08/13/22 08/13/22 release sennosides 8.6 mg-docusate sodium 2 tab-cap PO HS 08/13/22 08/13/22 50 mg tablet (Senna-S) sertraline 100 mg tablet 100 mg PO BID 08/13/22 08/13/22 Results & Data (ED) Vital Signs Vital Signs - 24 hr 08/13/22 15:26 Temperature 36.5 C Temperature Source Temporal Artery Scan Pulse Rate 96 H Respiratory Rate 20 Respiratory Effort / Characteristics Non-Labored Respiratory Depth Normal Blood Pressure 148/73 H Blood Pressure Mean 98 Pulse Oximetry 96 Oxygen Delivery Method Room Air Sepsis Recent Fever Within 48 Hours No Sepsis New/Unexplained Change in Mental Status No Sepsis Action Taken by Nursing No Action Required Laboratory Data 08/13/22 15:59 08/13/22 15:59 Lab Results 08/13/22 08/13/22 08/13/22 Range/Units 15:59 15:59 15:59 WBC 12.88 H (4.8-10.8) K/ul RBC 4.49 (4.20-5.40) M/uL Hgb 14.0 (12.0-16.0) g/dl Hct 39.9 (37.0-47.0) % MCV 88.9 (80.0-100.0) fL MCH 31.2 (25.0-34.0) pg MCHC 35.1 (32.0-36.0) g/dL RDW Std Deviation 48.9 H (36.4-46.3) fL RDW Coeff of Miguel Ángel 14.9 H (11.5-14.5) % Plt Count 475 H (130-400) K/uL MPV 9.1 L (9.4-12.4) fL Immature Gran % (Auto) 0.4 % Neut % (Auto) 69.4 % Lymph % (Auto) 21.7 % Butler % (Auto) 5.5 % Eos % (Auto) 2.3 % Baso % (Auto) 0.7 % Neut # (Auto) 8.94 H (1.40-6.50) K/uL Lymph # (Auto) 2.79 (1.2-3.4) K/uL Butler # (Auto) 0.71 H (0.11-0.59) K/uL Eos # (Auto) 0.30 (0-0.50) K/uL Baso # (Auto) 0.09 (0-0.2) K/uL Immature Gran # (Auto) 0.05 (0.01-0.20) K/uL ESR (0-30) mm/hr Sodium 139 (136-145) mmol/L Potassium 4.0 (3.5-5.1) mmol/L Chloride 108 H (98-107) mmol/L Carbon Dioxide 26 (21-32) mmol/L Anion Gap 5 (3-11) BUN 22 (6-23) mg/dl Creatinine 0.73 (0.6-1.2) mg/dl Est Cr Clr Drug Dosing 48.7 ml/min Est GFR ( Amer) 102.3 ml/min Est GFR (Non-Af Amer) 88.3 ml/min BUN/Creatinine Ratio 30.1 H (10-20) Glucose 85 (70-99(Fasting)) mg/dl Lactate 0.9 (0.4-2.0) mmol/L Calcium 9.9 (8.6-10.3) mg/dl Magnesium 1.9 (1.7-2.4) mg/dl Total Bilirubin 0.4 (0.2-1.0) mg/dl AST 20 (13-39) U/L ALT 16 (7-52) U/L Alkaline Phosphatase 78 (34-104) U/L C-Reactive Protein 1.72 H (0-0.5) mg/dl Total Protein 7.7 (6.0-8.3) gm/dl Albumin 4.3 (3.4-5.0) gm/dl Globulin 3.4 (2.5-4.0) gm/dl Albumin/Globulin Ratio 1.3 (0.9-2) Procalcitonin (0-0.5) ng/ml SARS-CoV-2, RNA, NAAT (NEGATIVE) 08/13/22 08/13/22 08/13/22 Range/Units 15:59 15:59 16:00 WBC (4.8-10.8) K/ul RBC (4.20-5.40) M/uL Hgb (12.0-16.0) g/dl Hct (37.0-47.0) % MCV (80.0-100.0) fL MCH (25.0-34.0) pg MCHC (32.0-36.0) g/dL RDW Std Deviation (36.4-46.3) fL RDW Coeff of Miguel Ángel (11.5-14.5) % Plt Count (130-400) K/uL MPV (9.4-12.4) fL Immature Gran % (Auto) % Neut % (Auto) % Lymph % (Auto) % Butler % (Auto) % Eos % (Auto) % Baso % (Auto) % Neut # (Auto) (1.40-6.50) K/uL Lymph # (Auto) (1.2-3.4) K/uL Butler # (Auto) (0.11-0.59) K/uL Eos # (Auto) (0-0.50) K/uL Baso # (Auto) (0-0.2) K/uL Immature Gran # (Auto) (0.01-0.20) K/uL ESR 44 H (0-30) mm/hr Sodium (136-145) mmol/L Potassium (3.5-5.1) mmol/L Chloride (98-107) mmol/L Carbon Dioxide (21-32) mmol/L Anion Gap (3-11) BUN (6-23) mg/dl Creatinine (0.6-1.2) mg/dl Est Cr Clr Drug Dosing ml/min Est GFR ( Amer) ml/min Est GFR (Non-Af Amer) ml/min BUN/Creatinine Ratio (10-20) Glucose (70-99(Fasting)) mg/dl Lactate (0.4-2.0) mmol/L Calcium (8.6-10.3) mg/dl Magnesium (1.7-2.4) mg/dl Total Bilirubin (0.2-1.0) mg/dl AST (13-39) U/L ALT (7-52) U/L Alkaline Phosphatase (34-104) U/L C-Reactive Protein (0-0.5) mg/dl Total Protein (6.0-8.3) gm/dl Albumin (3.4-5.0) gm/dl Globulin (2.5-4.0) gm/dl Albumin/Globulin Ratio (0.9-2) Procalcitonin < 0.05 (0-0.5) ng/ml SARS-CoV-2, RNA, NAAT NEGATIVE (NEGATIVE) Administered Medications Acetaminophen (Acetaminophen 325 Mg Tab) 650 mg PO Q4H PRN PRN Reason: Pain or Fever Stop: 09/12/22 18:05 Last Admin: 08/13/22 18:24 Dose: 650 mg Documented By: ROXI Acetaminophen (Acetaminophen 500 Mg Tab) 500 mg PO QID MADIHA Stop: 09/12/22 20:59 Last Admin: 08/13/22 19:41 Dose: Not Given Documented By: LAT Vancomycin HCl 1,000 mg/ (Sodium Chloride) 270 mls @ 200 mls/hr IV Q18H MADIHA; Protocol Stop: 09/24/22 19:59 Last Infusion: 08/13/22 21:07 Dose: 0 mls/hr Documented By: Admin: 08/13/22 19:42 Dose: 200 mls/hr Documented By: LAT Mirtazapine (Mirtazapine Tab 15 Mg Tab) 15 mg PO HS MADIHA Stop: 09/12/22 20:59 Last Admin: 08/13/22 19:43 Dose: 15 mg Documented By: LAT Oxycodone HCl (Oxycodone Hcl Ir 5 Mg Tab (Immediate Release)) 5 mg PO Q6H PRN PRN Reason: Pain 5-10 Stop: 08/27/22 18:05 Last Admin: 08/13/22 18:24 Dose: 5 mg Documented By: ROXI Senna/Docusate Sodium (Docusate Sodium/Senna 50/8.6mg Tab) 2 tab PO HS MADIHA Stop: 09/12/22 20:59 Last Admin: 08/13/22 19:42 Dose: 2 tab Documented By: ADDI Sertraline HCl (Sertraline Hcl 100 Mg Tablet) 100 mg PO BID MADIHA Stop: 09/12/22 20:59 Last Admin: 08/13/22 19:43 Dose: 100 mg Documented By: ADDI Discontinued Medications Vancomycin HCl 1,000 mg/ (Sodium Chloride) 520 mls @ 200 mls/hr IV NOW ONE Stop: 08/13/22 18:32 Last Admin: 08/13/22 16:21 Dose: 200 mls/hr Documented By: DARWIN Sodium Chloride (Nss 1000ml) 1,000 mls @ 999 mls/hr IV .Q1H1M ONE Stop: 08/13/22 16:58 Last Infusion: 08/13/22 17:34 Dose: 0 mls/hr Documented By: Admin: 08/13/22 16:21 Dose: 999 mls/hr Documented By: DARWIN Cefepime HCl (Maxipime) 2,000 mg in 20 mls @ 5 mls/min IV NOW STA; Protocol Stop: 08/13/22 16:18 Last Admin: 08/13/22 19:36 Dose: Not Given Documented By: ADDI Ketorolac Tromethamine (Ketorolac Tromethamine 15 Mg/Ml Vial) 15 mg IV NOW ONE Stop: 08/13/22 16:35 Last Admin: 08/13/22 17:13 Dose: 15 mg Documented By: DARWIN Discharge Plan Visit Data Chief Complaint: Infection Stated Complaint: INFECTION IN BACK ED Provider: Roverto Bobo Discharge Problem: Abnormal MRI, lumbar spine, Back pain Patient Disposition: Admitted As Inpatient Discharge Instructions Interventions: ED Discharge Assessment Last Done: 08/13/22 17:39
--- NOTE | 2022-08-13 16:13 | History & Physical Report ---
Date of Service August 13, 2022 Assessment & Plan (1) Back pain: (2) Abnormal MRI, lumbar spine: (3) History of lumbar spinal fusion: (4) COPD (chronic obstructive pulmonary disease): Plan This is a 61-year-old female with significant past medical history of COPD, depression and tobacco use disorder who presents to ED at the referral of PCP. Pt with mid/lower back pain x 3-4 weeks. No radiation, pain constant, nothing makes better/worse, oxy did improve pain slightly. Hx of 5 Lumbar surgeries in the past, most recent by Dr. Bean in ~ 2007, lumbar spinal fusion. Outpt work up revealed elevated ESR/CRP, mild leukocytosis with abn MRI concerning for inflammation around T10-11 Thoracic Back Pain Abnormal MRI Hx of lumbar spine fusion admit to med tele consult orthopedic spine IV vancomycin and cefepime await blood cultures IV toradol 15mg x 1 now Oxy IR 5mg q4hr prn pain Scheduled APAP ESR 44 CRP 1.72 COPD no acute exac prn albuterol Depression Poor appetite continue zoloft and mirtazpine DVT ppx: SCDS for now, awaiting ortho spine eval, if no surgical procedure warranted would add chemical ppx Dispo: med tele PCP: Cynthia Verde, spoke with OP clinician regarding current work up FULL CODE A total of 75 minutes was spent with greater than 50% of that time personally viewing all current laboratory work and diagnostic imaging studies obtained in the ED. Additionally, I was able to view the patients past medication reconciliation and history with direct visualization in the patients chart. Included in the time above, a portion of that time was spent assessing the patient while discussing and collaborating with specialists, if necessary, and making medical decision making on treatment plan. All of the above was collaborated with Dr. Torres. Please see addendum for further details. History of Present Illness Chief Complaint: Referred to ER 2/2 concern for osteomyelitis. Primary Care Provider: Tricia Nova MD This is a 61-year-old female with significant past medical history of COPD, depression and tobacco use disorder who presents to ED at the referral of PCP. She was seen in clinic on 08/05/2022 due to concerns for worsening back pain for approximately 1.5 weeks. She was seen in the ER on 07/30 for back pain and was told possibly secondary to gastritis. At that time she was given pantoprazole and told to stop taking NSAIDs. She was also given oxycodone which helped temporarily. During that evaluation WBC was 17,[address] abdomen pelvis was negative. She does have prior history of lumbar surgeries by Dr. Bean with hardware x5. Work-up in outpatient setting revealed mild elevation WBC at 12 K, platelet 489, ESR 35, CRP 18, CMP unremarkable. She underwent lumbar spine MRI which revealed posterior surgical changes and fusion at L2-S1. Also noted was inflammatory changes visualized in the lower thoracic spine surrounding paravertebral soft tissues most pronounced at the T10-T11 level with associated edema and enhancement. No distinct epidural abscess is noted. Noted an MRI was in appropriate clinical setting and when correlating with lab data early acute vertebral body osteomyelitis may still be considered over advanced degenerative disc disease. Due to elevated ESR, CRP, severe back pain and elevated white count she was referred to ER due to work-up for osteomyelitis. In ED she complains of mid back pain, pain currently a 6 out of 10. Pain is been present for the last 3 to 4 weeks. Pain is nonradiating, nothing makes it better or worse, she is not taking [id number] Tylenol without relief, she was prescribed a few tablets of oxycodone which did seem to help. She denies any fever, chills, sweats, lightheaded, dizzy, chest pain, shortness of breath, nausea, vomiting, abdominal pain, change in bowel or urinary habits. She is been taking her medications as prescribed. Over the last 1 to 2 months she has noticed decrease in appetite for which she has started Remeron for. Allergies Allergy/AdvReac Type Severity Reaction Status Date / Time doxycycline Allergy Mild itching Verified 08/13/22 16:07 procaine AdvReac Intermediate ANXIETY--SHAKING Verified 08/13/22 16:07 ALL OVER Home Medications Medication Instructions Recorded Confirmed Type mirtazapine 15 mg tablet 15 mg PO HS 08/13/22 08/13/22 History pantoprazole 40 mg tablet,delayed 40 mg PO DAILY 08/13/22 08/13/22 History release sennosides 8.6 mg-docusate sodium 2 tab-cap PO HS 08/13/22 08/13/22 History 50 mg tablet (Senna-S) sertraline 100 mg tablet 100 mg PO BID 08/13/22 08/13/22 History Past Med/Surg History Medical History Anemia Bronchitis COPD (chronic obstructive pulmonary disease) MDD (major depressive disorder) Protein calorie malnutrition Surgical History Fusion of lumbar spine 1995 Family History Brother Colorectal cancer Mother Breast cancer Other Alzheimer disease Heart disease Social History Smoking Status: Current every day smoker packs per day: 1; Second Hand Exposure: Yes; Do You Dip or Chew Tobacco: No; Tobacco Cessation Education Requested by Patient: No Hx Alcohol Use: No Hx Substance Use: Yes Last Used Substance: Just Prior to Arrival Preferred Language: Gabonese Communication Ability: Effective Payment Poster Required: No Beliefs That Will Affect Care: None marital status: Current Living Situation: Spouse current occupational status: disabled How many Children do You have: 2 Other Information That Helps Us Care for You: No Feels Safe at Home: Yes Safety Concerns: Feels Safe At This Time Assistive Devices: Denture - Upper and Denture - Lower Review of Systems Review of Systems: All systems reviewed & are unremarkable except as noted in HPI & below Physical Exam Physical Exam: Constitutional: Thin, petite, vitals as above, appears in pain, sitting up in bed, pleasant, conversing easily Head: Normocephalic, Atraumatic Eyes: PERRL, conjunctivae normal, anicteric sclerae ENMT: external ear and nose normal, oropharynx normal Neck: trachea midline, no thyromegaly normal visual inspection Respiratory: normal respiratory effort, lungs clear to auscultation, no wheeze, rales, rhonchi. Normal insp/exp effort, no accessory muscle use Cardiovascular: RRR, no murmur, no edema Vessels: no JVD or carotid bruit Chest: normal inspection of chest Abdomen: normal bowel sounds, soft, nontender, no hepatosplenomegaly Musculoskeletal: no cyanosis or clubbing, extremities motor strength 5/5 , pain to palpation vertebral spinous process appears to be around T12, no paraspinal muscle tenderness Skin: no rashes, warm and dry normal turgor Neurologic: PERRL, EOMI, accommodation nl, no face palsy, no dysarthria CN's II-XI intact bilaterally and moves all extremities Psychiatric: A+Ox3, euthymic affect Lymphatic: no cervical or axillary lymphadenopathy : deferred Results & Data Results & Data Vital Signs (Past 12 Hours) Vital Signs Temp Pulse Resp BP Pulse Ox O2 Del Method 08/13/22 15:26 36.5 C 96 H 20 148/73 H 96 Room Air Diagnostic Findings MRI Lumbar Spine: HISTORY 61 y/o F, Low back pain; r/o Infection; Low back pain with rest or at night; No known/automatically detected potential contraindications to imaging COMPARISON None. TECHNIQUE Multiplanar, multisequence magnetic resonance images of the lumbar spine were obtained before and after the administration of intravenous contrast. FINDINGS There are 5 non rib bearing lumbar type segments. Postsurgical changes of posterior lumbosacral osteotomy including laminectomies at L2 through L5 with bilateral facetectomies/foraminotomies at L2-L3 through L5-S1, placement of interbody fusion spacers at L2-L3 through L5-S1, and posterior lumbar fusion with vertical rods and paired transpedicular screws at L2-L3. Osseous fusion is most evident at L3 through L5, to a lesser degree at L2-L3. Evidence of prior hardware revision with removal of transpedicular screws at L4-S1. No evidence of an acute fracture or acute malalignment. There is thoracic dextroscoliosis. Grade 1 anterolisthesis of L4 on L5 and L5 on S1. Lumbar lordosis is otherwise maintained. Lumbar vertebral body height is maintained allowing for degenerative changes. Marked intervertebral disc height loss at T12-L1 and moderate to marked disc height loss at L1-L2. There is also marked disc height loss in the visualized thoracic spine at T9-T10 and T10-T11. Endplate associated degenerative changes in the bone marrow, primarily mixed Modic type 2/3 changes in the lumbar spine, Modic type 1 changes with edema/enhancement most pronounced at T10-T11 and T9- T10. Degenerative changes by level: T10-T11: Endplate osteophytes, disc bulge, ligamentum flavum thickening, and facet arthropathy contributes to moderate spinal canal narrowing and moderate right and gvfxzypn-gb-irvwoj left neuroforaminal narrowing. T11-T12: Disc bulge, ligamentum flavum thickening, and facet arthropathy contributes to mild spinal canal narrowing and mild right neuroforaminal narrowing. T12-L1: Endplate osteophytes, disc bulge, ligamentum flavum thickening, and facet arthropathy contributes to mild spinal canal narrowing and moderate right and lryb-vh-qfzbwucu left neuroforaminal narrowing. L1-L2: Endplate osteophytes, disc bulge, ligamentum flavum thickening, and facet arthropathy contributes to mild spinal canal narrowing and moderate bilateral neuroforaminal narrowing. L2-L3: No significant spinal canal or neuroforaminal narrowing following posterior decompression. L3-L4: No significant spinal canal or neuroforaminal narrowing following posterior decompression. L4-L5: Spondylolisthesis without significant spinal canal or neuroforaminal narrowing following posterior decompression. L5-S1: Spondylolisthesis contributes to mild bilateral neuroforaminal narrowing. No significant spinal canal narrowing following posterior decompression. The spinal cord terminates in a normal position at the L1 level. The conus medullaris and cauda equina are within normal limits. There is trace epidural soft tissue enhancement at T10-T11 and to a lesser degree at the dorsal epidural space T11-T12 level. No abnormal nerve root enhancement. Paravertebral soft tissue inflammatory changes at the lower thoracic levels, most pronounced at T10-T11 on the left (for example series 27, image 4). The remaining paravertebral soft tissues are within normal limits. Extensive paraspinal muscle atrophy in the lumbar spine. IMPRESSION IMPRESSION 1. Postsurgical changes of posterior lumbosacral osteotomy and fusion at L2-S1, as discussed. 2. Inflammatory changes in the visualized lower thoracic spine and surrounding paravertebral soft tissues, most pronounced at the T10-T11 level, with associated edema/enhancement. Lack of fluid signal and enhancement at the intervertebral disc and lack of osseous erosion favors advanced degenerative disc disease over acute discitis-osteomyelitis. In the appropriate clinical setting and when correlating with laboratory data, early acute vertebral body osteomyelitis may still be considered. There is trace epidural soft tissue enhancement and moderate spinal canal narrowing at T10-T11, without a distinct epidural abscess. 3. Additional multilevel degenerative changes of the lumbar spine, as detailed. Medications Administered Medication List Vancomycin HCl 1,000 mg/ (Sodium Chloride) 520 mls @ 200 mls/hr IV NOW ONE Stop: 08/13/22 18:32 Last Admin: 08/13/22 16:21 Dose: 200 mls/hr Documented By: DARWIN Sodium Chloride (Nss 1000ml) 1,000 mls @ 999 mls/hr IV .Q1H1M ONE Stop: 08/13/22 16:58 Last Admin: 08/13/22 16:21 Dose: 999 mls/hr Documented By: DARWIN COVID-19 Results Results COVID-19 Adm Lab Results: RBC 4.07 M/uL (4.20-5.40) L 08/14/22 WBC 10.56 K/ul (4.8-10.8) 08/14/22 Hgb 12.8 g/dl (12.0-16.0) 08/14/22 Hct 37.2 % (37.0-47.0) 08/14/22 Plt Count 390 K/uL (130-400) 08/14/22 Neutrophils (%) (Auto) 59.8 % 08/14/22 Lymphocytes (%) (Auto) 26.9 % 08/14/22 Monocytes # (Auto) 0.71 K/uL (0.11-0.59) H 08/14/22 Eosinophils # (Auto) 0.54 K/uL (0-0.50) H 08/14/22 Immature Granulocyte % (Auto) 0.5 % 08/14/22 Neutrophils # (Auto) 6.31 K/uL (1.40-6.50) 08/14/22 Lymphocytes # (Auto) 2.84 K/uL (1.2-3.4) 08/14/22 Monocytes # (Auto) 0.71 K/uL (0.11-0.59) H 08/14/22 Eosinophils # (Auto) 0.54 K/uL (0-0.50) H 08/14/22 Basophils # (Auto) 0.11 K/uL (0-0.2) 08/14/22 Immature Granulocyte # (Auto) 0.05 K/uL (0.01-0.20) 3 Na 140 mmol/L (136-145) 08/14/22 K 3.7 mmol/L (3.5-5.1) 08/14/22 Cl 113 mmol/L (98-107) H 08/14/22 CO2 22 mmol/L (21-32) 08/14/22 Anion Gap 5 (3-11) 08/14/22 BUN 20 mg/dl (6-23) 08/14/22 Creatinine 0.81 mg/dl (0.6-1.2) 08/14/22 BUN/Creatinine Ratio 24.7 (10-20) H 08/14/22 Glucose Level 84 mg/dl (70-99(Fasting)) 08/14/22 Ca 8.5 mg/dl (8.6-10.3) L 08/14/22 Total Bilirubin 0.4 mg/dl (0.2-1.0) 08/14/22 AST/SGOT 17 U/L (13-39) 08/14/22 ALT/SGPT 12 U/L (7-52) 08/14/22 Alkaline Phosphatase 60 U/L (34-104) 08/14/22 Total Protein 6.2 gm/dl (6.0-8.3) 08/14/22 Albumin 3.4 gm/dl (3.4-5.0) 08/14/22 Globulin 2.8 gm/dl (2.5-4.0) 08/14/22 Albumin/Globulin Ratio 1.2 (0.9-2) 08/14/22 CRP 1.72 mg/dl (0-0.5) H 08/13/22 Procalcitonin < 0.05 ng/ml (0-0.5) 08/13/22 SARS-CoV-2, RNA, NAAT NEGATIVE (NEGATIVE) 08/13/22 Code Status & VTE Plan Code Status FULL CODE VTE Prophylaxis Plan VTE Prophylaxis will be ordered: Yes Supervising Physician Co-Signing Physician Notes Patient seen and examined independently. Discussed with above provider provider. Patient is a 61-year-old female with past medical history of COPD, depression, multiple back surgery presented to the ED for concern of osteomyelitis. Outpatient MRI lumbar spine with and without contrast results reviewed; Inflammatory changes in the visualized lower thoracic spine and surrounding paravertebral soft tissues, most pronounced at the T10-T11 level, with associated edema/enhancement. Lack of fluid signal and enhancement at the intervertebral disc and lack of osseous erosion favors advanced degenerative disc disease over acute discitis-osteomyelitis. In the appropriate clinical setting and when correlating with laboratory data, early acute vertebral body osteomyelitis may still be considered. There is trace epidural soft tissue enhancement and moderate spinal canal narrowing at T10-T11, without a distinct epidural abscess. Patient to be admitted to medical floor. IV Vanco, cefepime. Pain control Consult orthospine Consult infectious disease.
[2022-08-13] MEDS ORDERED: CEFEPIME 2,000 MG/20 ML VIAL IV STA (16:15)
[2022-08-13 16:24] LABS: Basophils # (auto) 0.09 K/uL (0-0.2); Basophils % (auto) 0.7 %; Eosinophils % (auto) 2.3 %; Hematocrit (blood only) 39.9 % (37.0-47.0); Immature Granulocytes # (auto) 0.05 K/uL (0.01-0.20); Immature Granulocytes % (auto) 0.4 %; Lymphocytes # (auto) 2.79 K/uL (1.2-3.4); Lymphocytes % (auto) 21.7 %; Mean Corpuscular Hemoglobin 31.2 pg (25.0-34.0); Mean Corpuscular Hgb Conc 35.1 g/dL (32.0-36.0); Mean Corpuscular Volume 88.9 fL (80.0-100.0); Mean Platelet Volume 9.1 fL (9.4-12.4); Monocytes # (auto) 0.71 K/uL (0.11-0.59); Monocytes % (auto) 5.5 %; Neutrophils # (auto) 8.94 K/uL (1.40-6.50); Neutrophils % (auto) 69.4 %; Platelet Count 475 K/uL (130-400); RDW Coefficient of Variation 14.9 % (11.5-14.5); RDW Standard Deviation 48.9 fL (36.4-46.3); Red Blood Count 4.49 M/uL (4.20-5.40); White Blood Count 12.88 K/ul (4.8-10.8)
[2022-08-13] MEDS ORDERED: KETOROLAC TROMETHAMINE 15 MG/ML VIAL IV ONE (16:34)
[2022-08-13 16:49] LABS: Albumin Globulin Ratio 1.3 (0.9-2); Albumin Level 4.3 gm/dl (3.4-5.0); BUN Creatinine Ratio 30.1 (10-20); Bilirubin,Total 0.4 mg/dl (0.2-1.0); C Reactive Protein 1.72 mg/dl (0-0.5); Calcium 9.9 mg/dl (8.6-10.3); Creatinine Clr Calc Pharmacy 48.7 ml/min; Est GFR (African American) 102.3 ml/min; Est GFR (Non-African American) 88.3 ml/min; Globulin 3.4 gm/dl (2.5-4.0); Magnesium 1.9 mg/dl (1.7-2.4); Total Protein 7.7 gm/dl (6.0-8.3)
[2022-08-13 17:27] LABS: Appearance Urine Clear (Clear); Bilirubin Urine Negative (Negative); Blood Urine Negative (Negative); Color Urine Yellow; Glucose Urine UA Negative (Negative); Ketones Urine Negative (Negative); Leukocyte Esterase Urine Negative (Negative); Nitrite Urine Negative (Negative); Protein Urine Negative (Negative); Specific Gravity Urine 1.009 (1.000-1.030); Urobilinogen Urine Negative (Negative); pH Urine 7.5 (4.5-7.5)
[2022-08-13] MEDS ORDERED: MAGNESIUM HYDROXIDE SUSP 30 ML UDC PO PRN (18:06)
[2022-08-13] MEDS ORDERED: ALUMINUM/MAGNESIUM SUSP 30 ML UDC PO PRN (18:06)
[2022-08-13] MEDS ORDERED: POLYETHYLENE (MIRALAX) 17 GM PACK PO PRN (18:06)
[2022-08-13] MEDS ORDERED: ONDANSETRON INJ 2 MG/ML 2 ML VIAL IV PRN (18:06)
[2022-08-13] MEDS ORDERED: ALBUT/IPRATROP 3MG/0.5MG NEB 3 ML VIAL NEB PRN (18:06)
[2022-08-13] MEDS: ACETAMINOPHEN 325 MG TAB PO PRN (18:24)
[2022-08-13] MEDS: oxyCODONE HCL IR 5 MG TAB (IMMEDIATE RELEASE) PO PRN (18:24)
[2022-08-13] MEDS: ACETAMINOPHEN 500 MG TAB PO SCH (19:41)
[2022-08-13] MEDS: DOCUSATE SODIUM/SENNA 50/8.6MG TAB PO SCH (19:42)
[2022-08-13] MEDS: VANCOMYCIN HCL 1,000 MG in SODIUM CHLORIDE 0.9% 250 ML IV SCH (19:42)
[2022-08-13] MEDS: MIRTAZAPINE TAB 15 MG TAB PO SCH (19:43)
[2022-08-13] MEDS: SERTRALINE HCL 100 MG TABLET PO SCH (19:43)
--- NOTE | 2022-08-13 20:13 | Pharmacy Report ---
Pharmacy Vanc AUC Short Note - Date of Service August 13, 2022 - Assessment & Plan Assessment 61 year old F receiving vancomycin for treatment of bone and joint infection. Day #1 of antimicrobial therapy: 08/13/22 Plan Vancomycin * Load: Vancomycin 1,000 mg IV once on 08/13/22 at 1621 * Maintenance: Vancomycin 1,000 mg IV q18h starting 08/13/22 at 2000. * AUC/JAMAL is the preferred PK/PD target for vancomycin * AUC guided dosing is effective and associated with decreased risk of nephrotoxicity compared to traditional trough targets * Trough level of 16.8 mcg/mL is predicted to achieve target AUC/JAMAL of 400-600 mg/L.hr and may be associated with a 12 % risk of nephrotoxicity * Random level ordered for: 08/15/22 with AM labs Pharmacy will continue to follow and will adjust dose/frequency as necessary. Thank you.
[2022-08-13] MEDS: NICOTINE 21 MG/24 HR TDSY TD SCH (21:24)
[2022-08-13] MEDS ORDERED: MoRPHine SULFATE 4 MG/ML 1 ML CARP\\VIAL IV STA (22:51)
[2022-08-13] MEDS: CEFEPIME 2,000 MG in SYRINGE 0 ML IV SCH (23:16)
[2022-08-14 07:14] LABS: Basophils # (auto) 0.11 K/uL (0-0.2); Eosinophils # (auto) 0.54 K/uL (0-0.50); Eosinophils % (auto) 5.1 %; Hematocrit (blood only) 37.2 % (37.0-47.0); Hemoglobin 12.8 g/dl (12.0-16.0); Immature Granulocytes # (auto) 0.05 K/uL (0.01-0.20); Immature Granulocytes % (auto) 0.5 %; Lymphocytes # (auto) 2.84 K/uL (1.2-3.4); Lymphocytes % (auto) 26.9 %; Mean Corpuscular Hemoglobin 31.4 pg (25.0-34.0); Mean Corpuscular Hgb Conc 34.4 g/dL (32.0-36.0); Mean Corpuscular Volume 91.4 fL (80.0-100.0); Mean Platelet Volume 8.9 fL (9.4-12.4); Monocytes # (auto) 0.71 K/uL (0.11-0.59); Monocytes % (auto) 6.7 %; Neutrophils # (auto) 6.31 K/uL (1.40-6.50); Neutrophils % (auto) 59.8 %; Platelet Count 390 K/uL (130-400); RDW Standard Deviation 50.1 fL (36.4-46.3); Red Blood Count 4.07 M/uL (4.20-5.40); White Blood Count 10.56 K/ul (4.8-10.8)
[2022-08-14 07:29] LABS: Albumin Globulin Ratio 1.2 (0.9-2); Albumin Level 3.4 gm/dl (3.4-5.0); BUN Creatinine Ratio 24.7 (10-20); Bilirubin,Total 0.4 mg/dl (0.2-1.0); Calcium 8.5 mg/dl (8.6-10.3); Creatinine Clr Calc Pharmacy 43.9 ml/min; Est GFR (African American) 90.2 ml/min; Est GFR (Non-African American) 77.8 ml/min; Globulin 2.8 gm/dl (2.5-4.0); Magnesium 1.7 mg/dl (1.7-2.4); Potassium 3.7 mmol/L (3.5-5.1); Total Protein 6.2 gm/dl (6.0-8.3)
[2022-08-14] MEDS: NICOTINE 21 MG/24 HR TDSY TD SCH (09:04)
[2022-08-14] MEDS: ACETAMINOPHEN 500 MG TAB PO SCH ×4 (09:04→20:27)
[2022-08-14] MEDS: SERTRALINE HCL 100 MG TABLET PO SCH ×2 (09:04→20:26)
[2022-08-14] MEDS: PANTOprazole 40 MG TAB PO SCH (09:05)
[2022-08-14] MEDS: oxyCODONE HCL IR 5 MG TAB (IMMEDIATE RELEASE) PO PRN ×4 (09:06→22:03)
--- NOTE | 2022-08-14 09:54 | Orthopedic Consultation ---
Date of Consultation August 14, 2022 Assessment & Plan (1) Back pain: This time hoping to have the [facility] MRI transferred to our system so I may personally review. I would continue to encourage activity as tolerated.. I will do x-rays. Make further recommendations upon review of films. History of Present Illness Reason for Consultation: Thoracic back pain Attending Physician: Florentino Torres MD History of Present Illness This a very pleasant 61-year-old female well-known to me that presents with some thoracic back pain. An MRI was obtained and there is concern of possible inflammation perhaps representing infection. This morning she is comfortable at rest. States ambulating is tolerable and there is some modest discomfort when doing so. She denies any numbness or tingling to the legs. She does give a history of lifting her 90 pound dog 2 weeks ago and after which time the pain began. Pain does not awaken her from sleep at this time. Allergies Allergy/AdvReac Type Severity Reaction Status Date / Time doxycycline Allergy Mild itching Verified 08/13/22 16:07 procaine AdvReac Intermediate ANXIETY--SHAKING Verified 08/13/22 16:07 ALL OVER Home Medications Medication Instructions Recorded Confirmed Type mirtazapine 15 mg tablet 15 mg PO HS 08/13/22 08/13/22 History pantoprazole 40 mg tablet,delayed 40 mg PO DAILY 08/13/22 08/13/22 History release sennosides 8.6 mg-docusate sodium 2 tab-cap PO HS 08/13/22 08/13/22 History 50 mg tablet (Senna-S) sertraline 100 mg tablet 100 mg PO BID 08/13/22 08/13/22 History Patient History Medical History Anemia Bronchitis COPD (chronic obstructive pulmonary disease) MDD (major depressive disorder) Protein calorie malnutrition Surgical History Fusion of lumbar spine 1995 Family History Brother Colorectal cancer Mother Breast cancer Other Alzheimer disease Heart disease Social History Smoking Status: Current every day smoker packs per day: 1; Second Hand Exposure: Yes; Do You Dip or Chew Tobacco: No; Tobacco Cessation Education Requested by Patient: No Hx Alcohol Use: No Hx Substance Use: Yes Last Used Substance: Just Prior to Arrival Preferred Language: Macedonian Communication Ability: Effective Human Resources Specialist Required: No Beliefs That Will Affect Care: None marital status: Current Living Situation: Spouse current occupational status: disabled How many Children do You have: 2 Other Information That Helps Us Care for You: No Feels Safe at Home: Yes Safety Concerns: Feels Safe At This Time Assistive Devices: Denture - Upper and Denture - Lower Physical Exam Physical Exam: On exam she does have a well-healed lumbar incision. There is no abnormal skin markings. She does have discomfort to palpation of the thoracolumbar junction. She has good strength testing lower extremities. Results & Data Vital Signs (Past 12 Hours) Vital Signs Temp Pulse Pulse Resp BP Pulse Ox O2 Del Method 08/14/22 08:07 36.6 C 58 L 18 166/85 H 95 Room Air 08/14/22 07:47 64 08/14/22 02:42 36.6 C 59 L 18 161/88 H 94 Room Air 08/13/22 23:25 36.7 C 67 18 168/76 H 96 Room Air 08/13/22 22:02 73
[2022-08-14] MEDS: CEFEPIME 2,000 MG in SYRINGE 0 ML IV SCH (11:50)
--- NOTE | 2022-08-14 12:10 | Hospitalist Progress Note ---
Date of Service August 14, 2022 Assessment & Plan (1) Back pain: (2) Abnormal MRI, lumbar spine: (3) History of lumbar spinal fusion: (4) COPD (chronic obstructive pulmonary disease): Plan This is a 61-year-old female with significant past medical history of COPD, depression and tobacco use disorder who presents to ED at the referral of PCP. Pt with mid/lower back pain x 3-4 weeks. No radiation, pain constant, nothing makes better/worse, oxy did improve pain slightly. Hx of 5 Lumbar surgeries in the past, most recent by Dr. Bean in ~ 2007, lumbar spinal fusion. Outpt work up revealed elevated ESR/CRP, mild leukocytosis with abn MRI concerning for inflammation around T10-11 Thoracic Back Pain Abnormal MRI Hx of lumbar spine fusion Patient presents with mid to lower back pain for 3 to 4 weeks. She has multiple back surgeries in the past MRI lumbar spine done as outpatient finding concerning for acute discitisosteomyelitis ESR elevated to 44 CRP elevated to 1.72 Discussed with [employer] radiology to send over the images for review by orthospine here Currently on cefepime and vancomycin Blood culture ordered; pending. Infectious disease consult pending Continue pain control COPD no acute exac prn albuterol Depression Poor appetite continue zoloft and mirtazpine DVT ppx: Heparin Dispo: med tele PCP: Cynthia Verde, spoke with OP clinician regarding current work up FULL CODE Admission and Anticipated Discharge Date Admission Date: August 13, 2022 Subjective Patient seen and examined at bedside. She is lying on the bed comfortably; not in any distress. She reports that her back pain is similar to yesterday's. Review of Systems Review of Systems: All systems reviewed & are unremarkable except as noted in Subjective Physical Exam Physical Exam: Constitutional: Thin, petite, comfortable; not in any distress Respiratory: normal respiratory effort, lungs clear to auscultation, no wheeze, rales, rhonchi. Normal insp/exp effort, no accessory muscle use Cardiovascular: RRR, no murmur, no edema Vessels: no JVD or carotid bruit Chest: normal inspection of chest Abdomen: normal bowel sounds, soft, nontender, no hepatosplenomegaly Musculoskeletal: no cyanosis or clubbing, extremities motor strength 5/5 , pain to palpation vertebral spinous process appears to be around T12, no paraspinal muscle tenderness Skin: no rashes, warm and dry normal turgor Neurologic: PERRL, EOMI, accommodation nl, no face palsy, no dysarthria CN's II-XI intact bilaterally and moves all extremities Psychiatric: A+Ox3, euthymic affect Lymphatic: no cervical or axillary lymphadenopathy : deferred Results & Data Results & Data Vital Signs (Past 12 Hours) Vital Signs Temp Pulse Pulse Resp BP BP Pulse Ox 08/14/22 11:00 36.7 C 71 18 157/93 H 94 08/14/22 08:07 36.6 C 58 L 18 166/85 H 95 08/14/22 07:47 64 08/14/22 02:42 36.6 C 59 L 18 161/88 H 94 O2 Del Method 08/14/22 11:00 Room Air 08/14/22 08:07 Room Air 08/14/22 07:47 08/14/22 02:42 Room Air Laboratory Results Laboratory Results WBC 10.56 K/ul (4.8-10.8) 08/14/22 06:47 RBC 4.07 M/uL (4.20-5.40) L 08/14/22 06:47 Hgb 12.8 g/dl (12.0-16.0) 08/14/22 06:47 Hct 37.2 % (37.0-47.0) 08/14/22 06:47 MCV 91.4 fL (80.0-100.0) 08/14/22 06:47 MCH 31.4 pg (25.0-34.0) 08/14/22 06:47 MCHC 34.4 g/dL (32.0-36.0) 08/14/22 06:47 RDW Std Deviation 50.1 fL (36.4-46.3) H 08/14/22 06:47 RDW Coeff of Miguel Ángel 15.0 % (11.5-14.5) H 08/14/22 06:47 Plt Count 390 K/uL (130-400) 08/14/22 06:47 MPV 8.9 fL (9.4-12.4) L 08/14/22 06:47 Immature Gran % (Auto) 0.5 % 08/14/22 06:47 Neut % (Auto) 59.8 % 08/14/22 06:47 Lymph % (Auto) 26.9 % 08/14/22 06:47 Green % (Auto) 6.7 % 08/14/22 06:47 Eos % (Auto) 5.1 % 08/14/22 06:47 Baso % (Auto) 1.0 % 08/14/22 06:47 Neut # (Auto) 6.31 K/uL (1.40-6.50) 08/14/22 06:47 Lymph # (Auto) 2.84 K/uL (1.2-3.4) 08/14/22 06:47 Green # (Auto) 0.71 K/uL (0.11-0.59) H 08/14/22 06:47 Eos # (Auto) 0.54 K/uL (0-0.50) H 08/14/22 06:47 Baso # (Auto) 0.11 K/uL (0-0.2) 08/14/22 06:47 Immature Gran # (Auto) 0.05 K/uL (0.01-0.20) 08/14/22 06:47 ESR 44 mm/hr (0-30) H 08/13/22 15:59 Sodium 140 mmol/L (136-145) 08/14/22 06:47 Potassium 3.7 mmol/L (3.5-5.1) 08/14/22 06:47 Chloride 113 mmol/L (98-107) H 08/14/22 06:47 Carbon Dioxide 22 mmol/L (21-32) 08/14/22 06:47 Anion Gap 5 (3-11) 08/14/22 06:47 BUN 20 mg/dl (6-23) 08/14/22 06:47 Creatinine 0.81 mg/dl (0.6-1.2) 08/14/22 06:47 Est Cr Clr Drug Dosing 43.9 ml/min 08/14/22 06:47 Est GFR ( Amer) 90.2 ml/min 08/14/22 06:47 Est GFR (Non-Af Amer) 77.8 ml/min 08/14/22 06:47 BUN/Creatinine Ratio 24.7 (10-20) H 08/14/22 06:47 Glucose 84 mg/dl (70-99(Fasting)) 08/14/22 06:47 Lactate 0.9 mmol/L (0.4-2.0) 08/13/22 15:59 Calcium 8.5 mg/dl (8.6-10.3) L 08/14/22 06:47 Magnesium 1.7 mg/dl (1.7-2.4) 08/14/22 06:47 Total Bilirubin 0.4 mg/dl (0.2-1.0) 08/14/22 06:47 AST 17 U/L (13-39) 08/14/22 06:47 ALT 12 U/L (7-52) 08/14/22 06:47 Alkaline Phosphatase 60 U/L (34-104) 08/14/22 06:47 C-Reactive Protein 1.72 mg/dl (0-0.5) H 08/13/22 15:59 Total Protein 6.2 gm/dl (6.0-8.3) 08/14/22 06:47 Albumin 3.4 gm/dl (3.4-5.0) 08/14/22 06:47 Globulin 2.8 gm/dl (2.5-4.0) 08/14/22 06:47 Albumin/Globulin Ratio 1.2 (0.9-2) 08/14/22 06:47 Procalcitonin < 0.05 ng/ml (0-0.5) 08/13/22 15:59 Urine Color Yellow 08/13/22 17:11 Urine Appearance Clear (Clear) 08/13/22 17:11 Urine pH 7.5 (4.5-7.5) 08/13/22 17:11 Ur Specific [place] 1.009 (1.000-1.030) 08/13/22 17:11 Urine Protein Negative (Negative) 08/13/22 17:11 Urine Glucose (UA) Negative (Negative) 08/13/22 17:11 Urine Ketones Negative (Negative) 08/13/22 17:11 Urine Blood Negative (Negative) 08/13/22 17:11 Urine Nitrite Negative (Negative) 08/13/22 17:11 Urine Bilirubin Negative (Negative) 08/13/22 17:11 Urine Urobilinogen Negative (Negative) 08/13/22 17:11 Ur Leukocyte Esterase Negative (Negative) 08/13/22 17:11 SARS-CoV-2, RNA, NAAT NEGATIVE (NEGATIVE) 08/13/22 16:00
--- NOTE | 2022-08-14 13:44 | XRay Report ---
XR thoracic spine 3V routine CLINICAL HISTORY: Back pain TECHNIQUE: 3 views of the thoracic spine were obtained. Comparison: None available at the time of this dictation. FINDINGS: Posterior fixation hardware is seen and lumbar spine. Degenerative changes are seen in the thoracic s pine. Alignment appears unremarkable. Prevertebral soft tissues are within normal limits. IMPRESSION: Degenerative changes as above without acute fracture or subluxation. ACT 112: Negative or not required by law. Electronically signed by: Rober Jackson M.D. 08/14/2022 1:42 PM
[2022-08-14] MEDS: VANCOMYCIN HCL 1,000 MG in SODIUM CHLORIDE 0.9% 250 ML IV SCH (16:04)
[2022-08-14] MEDS: MIRTAZAPINE TAB 15 MG TAB PO SCH (20:26)
[2022-08-14] MEDS: DOCUSATE SODIUM/SENNA 50/8.6MG TAB PO SCH (20:27)
[2022-08-14] MEDS: HEPARIN SOD 5,000 UNIT/0.5 ML VIAL SQ SCH (20:28)
[2022-08-15] MEDS: CEFEPIME 2,000 MG in SYRINGE 0 ML IV SCH ×2 (01:56→12:36)
[2022-08-15] MEDS: oxyCODONE HCL IR 5 MG TAB (IMMEDIATE RELEASE) PO PRN ×5 (03:28→22:09)
[2022-08-15 06:37] LABS: Creatinine Clr Calc Pharmacy 48.7 ml/min; Est GFR (African American) 102.3 ml/min; Est GFR (Non-African American) 88.3 ml/min
[2022-08-15] MEDS ORDERED: VANCOMYCIN LEVEL ONE (07:00)
[2022-08-15] MEDS: HEPARIN SOD 5,000 UNIT/0.5 ML VIAL SQ SCH ×2 (08:37→20:34)
[2022-08-15] MEDS: PANTOprazole 40 MG TAB PO SCH (08:40)
[2022-08-15] MEDS: NICOTINE 21 MG/24 HR TDSY TD SCH (08:40)
[2022-08-15] MEDS: ACETAMINOPHEN 500 MG TAB PO SCH ×4 (08:40→20:33)
[2022-08-15] MEDS: VANCOMYCIN HCL 1,000 MG in SODIUM CHLORIDE 0.9% 250 ML IV SCH (08:40)
[2022-08-15] MEDS: SERTRALINE HCL 100 MG TABLET PO SCH ×2 (08:40→20:33)
--- NOTE | 2022-08-15 11:05 | Pharmacy Report ---
Pharmacy PK ABX Note - Date of Service August 15, 2022 - Assessment and Plan Assessment * 61 year old F receiving cefepime and vancomycin for treatment of lumbar discitis/osteomyelitis. * Pertinent microbiologic data includes: blood cultures NGTD * ID consult pending Plan Vancomycin * Target AUC/JAMAL of 400-600 mg/L.hr * Random level of 11.5 mcg/mL this AM associated with an AUC of 472 * Continue maintenance dose: 1000 mg IV every 18 hours * Random level ordered for: 08/17 with AM labs Pharmacy will continue to follow and will adjust dose/frequency as necessary. Thank you. Pharmacy has transitioned to AUC monitoring for vancomycin. AUC/JAMAL is the p referred PK/PD target and is associated with decreased risk of nephrotoxicity compared to traditional trough targets.
--- NOTE | 2022-08-15 14:56 | Hospitalist Progress Note ---
Date of Service August 15, 2022 Assessment & Plan (1) Back pain: (2) Abnormal MRI, lumbar spine: (3) History of lumbar spinal fusion: (4) COPD (chronic obstructive pulmonary disease): Plan This is a 61-year-old female with significant past medical history of COPD, depression and tobacco use disorder who presents to ED at the referral of PCP. Pt with mid/lower back pain x 3-4 weeks. No radiation, pain constant, nothing makes better/worse, oxy did improve pain slightly. Hx of 5 Lumbar surgeries in the past, most recent by Dr. Bean in ~ 2007, lumbar spinal fusion. Outpt work up revealed elevated ESR/CRP, mild leukocytosis with abn MRI concerning for inflammation around T10-11 Thoracic Back Pain Abnormal MRI Hx of lumbar spine fusion Patient presents with mid to lower back pain for 3 to 4 weeks. She has multiple back surgeries in the past MRI lumbar spine done as outpatient finding concerning for acute discitisosteomyelitis ESR elevated to 44 CRP elevated to 1.72 Blood cultureno growth in 24 hours. Discussed with [facility] radiology to send over the images for review by orthospine here Currently on cefepime and vancomycin Will ask orthospine to review the images and we will follow-up on recommendation. Infectious disease consult pending Continue pain control COPD no acute exac prn albuterol Depression Poor appetite continue zoloft and mirtazpine DVT ppx: Heparin Dispo: med tele PCP: Cynthia Verde, FULL CODE DVT prophylaxis heparin Admission and Anticipated Discharge Date Admission Date: August 13, 2022 Subjective Patient seen and examined at bedside. She reports continued back pain; no episode of fever or chills overnight. Review of Systems Review of Systems: All systems reviewed & are unremarkable except as noted in Subjective Physical Exam Physical Exam: Constitutional: Thin, petite, comfortable; not in any distress Respiratory: normal respiratory effort, lungs clear to auscultation, no wheeze, rales, rhonchi. Normal insp/exp effort, no accessory muscle use Cardiovascular: RRR, no murmur, no edema Vessels: no JVD or carotid bruit Chest: normal inspection of chest Abdomen: normal bowel sounds, soft, nontender, no hepatosplenomegaly Musculoskeletal: no cyanosis or clubbing, extremities motor strength 5/5 , pain to palpation vertebral spinous process appears to be around T12, no paraspinal muscle tenderness Skin: no rashes, warm and dry normal turgor Neurologic: PERRL, EOMI, accommodation nl, no face palsy, no dysarthria CN's II-XI intact bilaterally and moves all extremities Psychiatric: A+Ox3, euthymic affect Lymphatic: no cervical or axillary lymphadenopathy : deferred Results & Data Results & Data Vital Signs (Past 12 Hours) Vital Signs Temp Pulse Resp BP Pulse Ox O2 Del Method 08/15/22 10:47 36.8 C 73 16 130/77 95 Room Air 08/15/22 07:41 36.9 C 66 16 143/67 H 96 Room Air 08/15/22 03:21 36.7 C 68 16 148/68 H 95 Room Air Laboratory Results Laboratory Results WBC 10.56 K/ul (4.8-10.8) 08/14/22 06:47 RBC 4.07 M/uL (4.20-5.40) L 08/14/22 06:47 Hgb 12.8 g/dl (12.0-16.0) 08/14/22 06:47 Hct 37.2 % (37.0-47.0) 08/14/22 06:47 MCV 91.4 fL (80.0-100.0) 08/14/22 06:47 MCH 31.4 pg (25.0-34.0) 08/14/22 06:47 MCHC 34.4 g/dL (32.0-36.0) 08/14/22 06:47 RDW Std Deviation 50.1 fL (36.4-46.3) H 08/14/22 06:47 RDW Coeff of Miguel Ángel 15.0 % (11.5-14.5) H 08/14/22 06:47 Plt Count 390 K/uL (130-400) 08/14/22 06:47 MPV 8.9 fL (9.4-12.4) L 08/14/22 06:47 Immature Gran % (Auto) 0.5 % 08/14/22 06:47 Neut % (Auto) 59.8 % 08/14/22 06:47 Lymph % (Auto) 26.9 % 08/14/22 06:47 [place] % (Auto) 6.7 % 08/14/22 06:47 Eos % (Auto) 5.1 % 08/14/22 06:47 Baso % (Auto) 1.0 % 08/14/22 06:47 Neut # (Auto) 6.31 K/uL (1.40-6.50) 08/14/22 06:47 Lymph # (Auto) 2.84 K/uL (1.2-3.4) 08/14/22 06:47 [place] # (Auto) 0.71 K/uL (0.11-0.59) H 08/14/22 06:47 Eos # (Auto) 0.54 K/uL (0-0.50) H 08/14/22 06:47 Baso # (Auto) 0.11 K/uL (0-0.2) 08/14/22 06:47 Immature Gran # (Auto) 0.05 K/uL (0.01-0.20) 08/14/22 06:47 ESR 44 mm/hr (0-30) H 08/13/22 15:59 Sodium 140 mmol/L (136-145) 08/14/22 06:47 Potassium 3.7 mmol/L (3.5-5.1) 08/14/22 06:47 Chloride 113 mmol/L (98-107) H 08/14/22 06:47 Carbon Dioxide 22 mmol/L (21-32) 08/14/22 06:47 Anion Gap 5 (3-11) 08/14/22 06:47 BUN 20 mg/dl (6-23) 08/14/22 06:47 Creatinine 0.73 mg/dl (0.6-1.2) 08/15/22 05:34 Est Cr Clr Drug Dosing 48.7 ml/min 08/15/22 05:34 Est GFR ( Amer) 102.3 ml/min 08/15/22 05:34 Est GFR (Non-Af Amer) 88.3 ml/min 08/15/22 05:34 BUN/Creatinine Ratio 24.7 (10-20) H 08/14/22 06:47 Glucose 84 mg/dl (70-99(Fasting)) 08/14/22 06:47 Lactate 0.9 mmol/L (0.4-2.0) 08/13/22 15:59 Calcium 8.5 mg/dl (8.6-10.3) L 08/14/22 06:47 Magnesium 1.7 mg/dl (1.7-2.4) 08/14/22 06:47 Total Bilirubin 0.4 mg/dl (0.2-1.0) 08/14/22 06:47 AST 17 U/L (13-39) 08/14/22 06:47 ALT 12 U/L (7-52) 08/14/22 06:47 Alkaline Phosphatase 60 U/L (34-104) 08/14/22 06:47 C-Reactive Protein 1.72 mg/dl (0-0.5) H 08/13/22 15:59 Total Protein 6.2 gm/dl (6.0-8.3) 08/14/22 06:47 Albumin 3.4 gm/dl (3.4-5.0) 08/14/22 06:47 Globulin 2.8 gm/dl (2.5-4.0) 08/14/22 06:47 Albumin/Globulin Ratio 1.2 (0.9-2) 08/14/22 06:47 Procalcitonin < 0.05 ng/ml (0-0.5) 08/13/22 15:59 Urine Color Yellow 08/13/22 17:11 Urine Appearance Clear (Clear) 08/13/22 17:11 Urine pH 7.5 (4.5-7.5) 08/13/22 17:11 Ur Specific [place] 1.009 (1.000-1.030) 08/13/22 17:11 Urine Protein Negative (Negative) 08/13/22 17:11 Urine Glucose (UA) Negative (Negative) 08/13/22 17:11 Urine Ketones Negative (Negative) 08/13/22 17:11 Urine Blood Negative (Negative) 08/13/22 17:11 Urine Nitrite Negative (Negative) 08/13/22 17:11 Urine Bilirubin Negative (Negative) 08/13/22 17:11 Urine Urobilinogen Negative (Negative) 08/13/22 17:11 Ur Leukocyte Esterase Negative (Negative) 08/13/22 17:11 Random Vancomycin 11.5 mcg/ml (10-20) 08/15/22 05:34 SARS-CoV-2, RNA, NAAT NEGATIVE (NEGATIVE) 08/13/22 16:00 Impressions Thoracic Spine X-Ray 08/14/22 09:51 XR thoracic spine 3V routine CLINICAL HISTORY: Back pain TECHNIQUE: 3 views of the thoracic spine were obtained. Comparison: None available at the time of this dictation. FINDINGS: Posterior fixation hardware is seen and lumbar spine. Degenerative changes are seen in the thoracic spine. Alignment appears unremarkable. Prevertebral soft tissues are within normal limits. IMPRESSION: Degenerative changes as above without acute fracture or subluxation. ACT 112: Negative or not required by law. Electronically signed by: Rober Jackson M.D. 08/14/2022 1:42 PM
[2022-08-15] MEDS: MIRTAZAPINE TAB 15 MG TAB PO SCH (20:33)
[2022-08-15] MEDS: DOCUSATE SODIUM/SENNA 50/8.6MG TAB PO SCH (20:33)
[2022-08-16] MEDS: VANCOMYCIN HCL 1,000 MG in SODIUM CHLORIDE 0.9% 250 ML IV SCH (02:18)
[2022-08-16] MEDS: CEFEPIME 2,000 MG in SYRINGE 0 ML IV SCH (02:18)
[2022-08-16] MEDS: ACETAMINOPHEN 325 MG TAB PO PRN (02:24)
[2022-08-16] MEDS: oxyCODONE HCL IR 5 MG TAB (IMMEDIATE RELEASE) PO PRN ×3 (02:25→12:30)
[2022-08-16] MEDS ORDERED: MELATONIN 3 MG TAB PO PRN (02:38)
[2022-08-16 08:18] LABS: Basophils # (auto) 0.11 K/uL (0-0.2); Eosinophils # (auto) 0.47 K/uL (0-0.50); Eosinophils % (auto) 4.3 %; Hematocrit (blood only) 40.1 % (37.0-47.0); Hemoglobin 13.8 g/dl (12.0-16.0); Immature Granulocytes # (auto) 0.05 K/uL (0.01-0.20); Immature Granulocytes % (auto) 0.5 %; Lymphocytes # (auto) 2.07 K/uL (1.2-3.4); Lymphocytes % (auto) 18.9 %; Mean Corpuscular Hemoglobin 30.7 pg (25.0-34.0); Mean Corpuscular Hgb Conc 34.4 g/dL (32.0-36.0); Mean Corpuscular Volume 89.3 fL (80.0-100.0); Mean Platelet Volume 9.1 fL (9.4-12.4); Monocytes # (auto) 0.84 K/uL (0.11-0.59); Monocytes % (auto) 7.7 %; Neutrophils % (auto) 67.6 %; Platelet Count 453 K/uL (130-400); RDW Coefficient of Variation 14.9 % (11.5-14.5); Red Blood Count 4.49 M/uL (4.20-5.40); White Blood Count 10.94 K/ul (4.8-10.8)
[2022-08-16] MEDS: PANTOprazole 40 MG TAB PO SCH (08:19)
[2022-08-16] MEDS: ACETAMINOPHEN 500 MG TAB PO SCH (08:19)
[2022-08-16] MEDS: SERTRALINE HCL 100 MG TABLET PO SCH (08:19)
[2022-08-16] MEDS: HEPARIN SOD 5,000 UNIT/0.5 ML VIAL SQ SCH (08:20)
[2022-08-16] MEDS: NICOTINE 21 MG/24 HR TDSY TD SCH (08:21)
[2022-08-16 09:58] LABS: BUN Creatinine Ratio 28.8 (10-20); Calcium 9.4 mg/dl (8.6-10.3); Creatinine Clr Calc Pharmacy 48.7 ml/min; Est GFR (African American) 102.3 ml/min; Est GFR (Non-African American) 88.3 ml/min; Potassium 3.7 mmol/L (3.5-5.1)
--- NOTE | 2022-08-16 10:09 | Magnetic Resonance Report ---
MRI OF THE THORACIC SPINE WITHOUT CONTRAST CLINICAL HISTORY: Back pain. COMPARISON: Thoracic spine radiographs August 14, 2022. Lumbar spine MRI August 12, 2022. TECHNIQUE: Utilizing a 1.5 Stephanie magnet and dedicated coil, multiplanar, multiecho imaging of the th oracic spine was performed without IV contrast. FINDINGS: Thoracic spine vertebral body heights are maintained. There is no thoracic spine fracture. No suspicious marrow replacement. Thoracic cord signal and caliber are normal. Postoperative findings within lumbar spine are partially imaged on this examination. There is no intracanalicular mass or f luid collection. Multilevel suspected discogenic changes are most pronounced at T10-T11 level. There is severe disc space narrowing at this level. There is also severe disc space narrowing at T8-T9 and T9-T10. Note is made of a central disc extrusion with inferior subligamentous migration at the T10-T1 1 level. This results in mild to moderate central canal stenosis. Patent AP diameter of the canal is 6.9 mm. There is also severe left and moderate right neural foraminal stenosis at this level. Otherwi se, there is mild multilevel neural foraminal stenosis. Paravertebral soft tissues are unremarkable. There is no increased T2 disc signal. Degenerative changes at the T10-T11 level are similar to MRI of August 12, 2022. The appearance of the visualized lumbar spine is similar to that exam as well. This includes disc space narrowing with right paracentral disc osteophyte complex at T12-L1. IMPRESSION: 1. Moderate to severe multilevel degenerative disc disease and facet arthrosis within the mid to lowe r thoracic spine, most pronounced at the T10-T11 level. Disc space narrowing at this level with a loretta tral disc extrusion with inferior subligamentous migration which results in mild central canal stenos is. Severe left left and moderate right neural foraminal stenosis at T10-T11. Marrow signal abnormali ty within the T10 and T11 vertebra is likely discogenic in etiology. Although within the differential , an infectious process is considered less likely. If indicated, short-term follow-up MRI of the thor acic spine could be obtained. 2. Otherwise, mild multilevel central canal and neural foraminal stenosis. 3. Stable postoperative findings within visualized portions of the lumbar spine. 4. Normal thoracic cord signal and caliber. ACT 112: Negative or not required by law. Electronically signed by: Andrew Bustamante M.D. 08/16/2022 10:07 AM
[2022-08-16] MEDS ORDERED: VANCOMYCIN HCL 750 MG in SODIUM CHLORIDE 0.9% 250 ML IV SCH (11:00)
--- NOTE | 2022-08-16 14:57 | Discharge Summary ---
Date of Service August 16, 2022 Admission HPI Per Admitting Provider This is a 61-year-old female with significant past medical history of COPD, depression and tobacco use disorder who presents to ED at the referral of PCP. She was seen in clinic on 08/05/2022 due to concerns for worsening back pain for approximately 1.5 weeks. She was seen in the ER on 07/30 for back pain and was told possibly secondary to gastritis. At that time she was given pantoprazole and told to stop taking NSAIDs. She was also given oxycodone which helped temporarily. During that evaluation WBC was 17,[address] abdomen pelvis was negative. She does have prior history of lumbar surgeries by Dr. Bean with hardware x5. Work-up in outpatient setting revealed mild elevation WBC at 12 K, platelet 489, ESR 35, CRP 18, CMP unremarkable. She underwent lumbar spine MRI which revealed posterior surgical changes and fusion at L2-S1. Also noted was inflammatory changes visualized in the lower thoracic spine surrounding paravertebral soft tissues most pronounced at the T10-T11 level with associated edema and enhancement. No distinct epidural abscess is noted. Noted an MRI was in appropriate clinical setting and when correlating with lab data early acute vertebral body osteomyelitis may still be considered over advanced degenerative disc disease. Due to elevated ESR, CRP, severe back pain and elevated white count she was referred to ER due to work-up for osteomyelitis. In ED she complains of mid back pain, pain currently a 6 out of 10. Pain is been present for the last 3 to 4 weeks. Pain is nonradiating, nothing makes it better or worse, she is not taking [id number] Tylenol without relief, she was prescribed a few tablets of oxycodone which did seem to help. She denies any fever, chills, sweats, lightheaded, dizzy, chest pain, shortness of breath, nausea, vomiting, abdominal pain, change in bowel or urinary habits. She is been taking her medications as prescribed. Over the last 1 to 2 months she has noticed decrease in appetite for which she has started Remeron for. Admission Exam Per Admitting Provider Constitutional: Thin, petite, vitals as above, appears in pain, sitting up in bed, pleasant, conversing easily Head: Normocephalic, Atraumatic Eyes: PERRL, conjunctivae normal, anicteric sclerae ENMT: external ear and nose normal, oropharynx normal Neck: trachea midline, no thyromegaly normal visual inspection Respiratory: normal respiratory effort, lungs clear to auscultation, no wheeze, rales, rhonchi. Normal insp/exp effort, no accessory muscle use Cardiovascular: RRR, no murmur, no edema Vessels: no JVD or carotid bruit Chest: normal inspection of chest Abdomen: normal bowel sounds, soft, nontender, no hepatosplenomegaly Musculoskeletal: no cyanosis or clubbing, extremities motor strength 5/5 , pain to palpation vertebral spinous process appears to be around T12, no paraspinal muscle tenderness Skin: no rashes, warm and dry normal turgor Neurologic: PERRL, EOMI, accommodation nl, no face palsy, no dysarthria CN's II-XI intact bilaterally and moves all extremities Psychiatric: A+Ox3, euthymic affect Lymphatic: no cervical or axillary lymphadenopathy : deferred Principal Diagnosis Back pain due to is related degenerative disc disease Discharge Exam Constitutional: Thin, petite, comfortable; not in any distress Respiratory: normal respiratory effort, lungs clear to auscultation, no wheeze, rales, rhonchi. Normal insp/exp effort, no accessory muscle use Cardiovascular: RRR, no murmur, no edema Vessels: no JVD or carotid bruit Chest: normal inspection of chest Abdomen: normal bowel sounds, soft, nontender, no hepatosplenomegaly Musculoskeletal: no cyanosis or clubbing, extremities motor strength 5/5 , pain to palpation vertebral spinous process appears to be around T12, no paraspinal muscle tenderness Skin: no rashes, warm and dry normal turgor Neurologic: PERRL, EOMI, accommodation nl, no face palsy, no dysarthria CN's II-XI intact bilaterally and moves all extremities Psychiatric: A+Ox3, euthymic affect Lymphatic: no cervical or axillary lymphadenopathy : deferred Discharge Data Allergies Allergy/AdvReac Type Severity Reaction Status Date / Time doxycycline Allergy Mild itching Verified 08/13/22 16:07 procaine AdvReac Intermediate ANXIETY--SHAKING Verified 08/13/22 16:07 ALL OVER Consultations 08/13/22 15:57 ED Decision to Admit Stat 08/13/22 16:05 Consult Orthopedic Surgery Routine Ordered Studies 08/16/22 07:51 MR thoracic spine wo con Urgent Hospital Course (1) Back pain: (2) Abnormal MRI, lumbar spine: (3) History of lumbar spinal fusion: (4) COPD (chronic obstructive pulmonary disease): Plan Patient is a 61-year-old female with past medical history of COPD, depression and tobacco use disorder presented to the ED after being referred by her primary care doctor. Patient reported mid/lower back pain for 3 to 4 weeks. She has history of multiple back surgery; last 1 in 2007. Outpatient work-up revealed mildly elevated ESR/CRP. MRI lumbar spine done as out patient concerning for inflammation or possible infection around T10-11. Patient was admitted to telemetry floor; was started on cefepime and vancomycin. Blood culture was obtained. Ortho spine was consulted. patient blood culture was negative during the hospitalization. MRI thoracic spine was performed during the hosp italization; findings were consistent with moderate to severe multilevel degenerative disc disease; marrow signal abnormality within T10 and T12 vertebrae likely discogenic in etiology; infectious process is considered to be less likely. Orthospine reviewed the images; patient was okay to be discharged from orthospine perspective. She was discharged home with Tylenol and oxycodone for pain. Patient to follow-up with orthospine as outpatient and her PCP. Total Time Total Time Spent Total Time Spent (In Minutes): 40 Total Time Includes: Examination of the Patient, Discharge Planning, Medication Reconciliation, Communication With Other Providers and Other Discharge Plan Discharge Items Patient Disposition: Home - Self-Care Reason For Visit: OSTEOMYELITIS Discharge Diagnosis: multilevel degenerative disks disease Activity: Resume your previous activity Non-emergency contact: Primary Care Provider Call non-emergency contact if: you have any medication questions and your symptoms worsen Follow-up/Referrals: Tricia Nova MD [Primary Care Provider] - (Date & Time 08/20/2022 12:00 PM Provider Tricia Acosta MD Department Family Medicine [facility] ) Diet: Regular Addtl Attending Provider Instructions: You were admitted to the hospital with lower back pain. MRI thoracic spine done during the hospitalization showed moderate to severe multilevel degenerated disks disease; likely due to age-related changes. For pain control, you are prescribed Tylenol for mild pain every 6 hours as needed. If you have severe pain, take oxycodone as needed. Pending Studies at Discharge: No Stand-Alone Forms: [facility], Smoking Cessation Medications and DC Order Prescriptions: New acetaminophen [Tylenol Extra Strength] 500 mg Tablet 500 mg PO QID PRN (Reason: mild pain) Qty: 30 0RF oxycodone 5 mg Tablet 5 mg PO Q6H PRN (Reason: severe pain (scale score 7-10)) Qty: 10 0RF Continued mirtazapine 15 mg tablet 15 mg PO HS sertraline 100 mg tablet 100 mg PO BID pantoprazole 40 mg tablet,delayed release (DR/EC) 40 mg PO DAILY sennosides-docusate sodium [Senna-S] 8.6-50 mg Tablet 2 tab-cap PO HS Discharge Orders: Discharge Order (Routine); Ordered 08/16/22 Ordered By: Florentino Ramirez/Other Patient Handouts: Oxycodone Oral Tablet, Acetaminophen Oral Tablet Admission Data Admit Date/Time: 08/13/22 16:05 Attending Provider: Florentino Torres Admit Provider: Florentino Torres Primary Care Provider: Tricia Nova Other Providers: Florentino Torres ; Lamberto Bean Other Interventions: Discharge Summary Assessment (RN) Last Done: 08/16/22 12:10
== END 2022-08-16 14:00 | disposition home or self-care (01) ==
LOC: ED 15:20 → 2W 16:05 → INTOOBSV 16:05 → 2W 17:39